=== PATIENT | male | born 1940 | race Caucasian/White ===

== ENCOUNTER 2019-04-11 10:29 | Inpatient (IN) | payer MEDICARE, SELFPAY ==
[2019-04-11] VITALS (9 sets, daily range): BP systolic 104–197; BP diastolic 58–94; PULSE 68–90; RESP 17–20; TEMP 36.6–36.9; O2SAT 93–98; BMI 41.8
--- NOTE | 2019-04-11 10:50 | XR_ITS ---
WS: [id number] Portable AP upright chest, 04/11/2019 Clinical Data: cough Comparison: Portable chest, 01/03/2018 Findings: No nodules, masses or effusions are seen. The heart is enlarged. The pulmonary vascularity is not increased. No pneumonia or pneumothorax is seen. The aortic arch and descending aorta show tor tuosity. The diaphragms are flattened XR/XR chest 1V portable [id number] Impression: Atherosclerosis, hyperinflation and cardiomegaly.
--- NOTE | 2019-04-11 10:52 | ED_ITS ---
Entered by Izzy Browne, acting as scribe for HPI - General Adult General: Chief complaint: General Medical Stated complaint: POSSIBLE PNEUMONIA Time Seen by Provider: 04/11/19 10:50 Source: EMS Mode of arrival: EMS Limitations: no limitations History of Present Illness: HPI narrative: 79 yo male presents with shortness of breath. pt was sent to the ED for possible pneumonia from the CT clinic. pt states this is worsened by laying flat. pt has had a cough and congestion. pt denies any other symptoms. MD complaint: shortness of breath Onset (ago): day(s) (2-3 days ago) Location: chest (congestion ) Radiation: non-radiation Severity: moderate Quality: constant Pain Consistency: constant Relieving factors: none Exacerbating factors: rest (laying flat) and other (cough) Associated symptoms: Reports cough, dyspnea and short of breath; Deny chest pain, headache(s), nausea, rash or vomiting Treatments prior to arrival: other (pt sent to ED from the CT clinic) Review of Systems General: Reports: 10 or more systems reviewed and unremarkable except in HPI and below Const: Denies: fever, chills, body aches or change in appetite Eyes: Denies: blurry vision or eye discomfort ENMT: Denies: throat pain or dental pain Card: Denies: chest pain Resp: Reports: shortness of breath, productive cough and wheezing GI: Denies: abdominal pain, nausea, vomiting or diarrhea : Denies: painful urination Musc: Denies: neck pain or back pain Skin/Breast: Denies: rash Neuro: Denies: headache Psych: Denies: depression Pipo/Lymph: Denies: easy bruising All/Imm: Denies: hives PFSH ED PFSH: Statuses (acute, chronic, etc) shown below reflect problem list status as previously entered and may not be historically accurate Social History Smoking and tobacco status: former smoker Physical Exam Const: COMMON NORMALS: no apparent distress, oriented x3 and healthy appearing HENMT: COMMON NORMALS: normocephalic and head/scalp atraumatic HEAD & SCALP: normocephalic and atraumatic Eye: COMMON NORMALS: PERRL and EOMs intact bilaterally PUPIL: Yes PERRL Neck/C-Spine: COMMON NORMALS: full ROM and supple Chest: COMMONS NORMALS: inspection of chest normal and palpation of chest normal Cardio: COMMON NORMALS: regular rate, regular rhythm and no murmurs RATE: regular rate RHYTHM: regular rhythm GI: COMMON NORMALS: normal to inspection, nondistended, normoactive bowel sounds, soft to palpation, non-tender and no masses PALPATION: Yes soft Extremity: COMMON NORMALS: normal to inspection and full ROM Neuro: COMMON NORMALS: oriented x3, moves all extremities and no focal motor deficits Psych: COMMON NORMALS: mental status grossly normal, thought process normal and cooperative THOUGHT PROCESS: normal thought process Skin: COMMON NORMALS: no rashes or lesions noted and no wounds GENERAL SKIN EXAM: no rashes or lesions noted Course Vital Signs: Vital signs: Vital Signs Temperature 98.5 F 04/11/19 10:31 Pulse Rate 87 04/11/19 15:27 Respiratory Rate 20 H 04/11/19 15:27 Blood Pressure 104/58 04/11/19 10:31 Pulse Oximetry 93 04/11/19 15:27 MDM - General Adult MDM Narrative: Medical decision making narrative: Patient presents here with dyspnea CT shows a possible pulmonary embolism but I believe is unlikely. Patient likely some chronic hypoxia. He is hypoxic here requiring 2 to 3 L. He has no signs of pneumonia. Since he is on oxygen will admit him for observation and spoke to Dr. Lopez. Lab Data: Labs: Lab Results 04/11/19 04/11/19 04/11/19 Range/Units 11:05 11:05 11:05 WBC 9.3 (4.0-10.0) 10^3/ uL RBC 4.26 (4.1-5.3) 10^6/u L Hgb 12.6 (11.7-16.6) g/dL Hct 38.0 L (42.0-52.0) % MCV 89.2 (80-94) fL MCH 29.6 (28.0-34.0) pg MCHC 33.2 (30.0-36.0) g/dL RDW 14.0 (12.1-15.1) % Plt Count 161 (130-400) 10^3/c mm MPV 11.0 H (7.4-10.4) fL Neut % (Auto) 77.2 % Lymph % (Auto) 10.9 % [place] % (Auto) 8.9 % Eos % (Auto) 2.5 % Baso % (Auto) 0.2 % Neut # (Auto) 7.2 (1.8-7.7) 10^3/u L Lymph # (Auto) 1.0 (0.8-4.8) 10^3/u L [place] # (Auto) 0.8 (0.2-0.9) 10^3/u L Eos # (Auto) 0.2 (0.0-0.8) 10^3/u L Baso # (Auto) 0.0 (0.0-0.1) 10^3/u L Nucleated RBC % (a uto) 0 % Nucleated RBCs # 0.0 /100WBC PT 35.80 H (10.5-13.3) SECO NDS INR 3.42 H (0.8-1.2) Sodium 137 (136-145) mmol/L Potassium 4.3 (3.5-5.1) mmol/L Chloride 97 L (98-107) mmol/L Carbon Dioxide 29 (22-29) mmol/L Anion Gap 15.3 (5-19) BUN 21 (8-23) mg/dL Creatinine 1.5 H (0.7-1.2) mg/dL Glucose 122 H (74-106) mg/dL Calcium 10.2 (8.5-10.5) mg/dL Total Bilirubin 0.6 (0.15-1.2) mg/dL AST 23 (0-40) U/L ALT 17 (0-41) U/L Alkaline Phosphata se 131 H (40-130) IU/L NT-Pro-B Natriuret Pep 1210 H (0-450) pg/mL Total Protein 7.9 (6.6-8.7) g/dL Albumin 4.4 (3.5-5.2) g/dL Globulin 3.5 (1.3-4.6) g/dL Lipase 28 (13-60) U/L Influenza Type A A g (Negative) POC Influenza B Ag (Negative) 04/11/19 Range/Units 12:19 WBC (4.0-10.0) 10^3/ uL RBC (4.1-5.3) 10^6/u L Hgb (11.7-16.6) g/dL Hct (42.0-52.0) % MCV (80-94) fL MCH (28.0-34.0) pg MCHC (30.0-36.0) g/dL RDW (12.1-15.1) % Plt Count (130-400) 10^3/c mm MPV (7.4-10.4) fL Neut % (Auto) % Lymph % (Auto) % [place] % (Auto) % Eos % (Auto) % Baso % (Auto) % Neut # (Auto) (1.8-7.7) 10^3/u L Lymph # (Auto) (0.8-4.8) 10^3/u L [place] # (Auto) (0.2-0.9) 10^3/u L Eos # (Auto) (0.0-0.8) 10^3/u L Baso # (Auto) (0.0-0.1) 10^3/u L Nucleated RBC % (a uto) % Nucleated RBCs # /100WBC PT (10.5-13.3) SECO NDS INR (0.8-1.2) Sodium (136-145) mmol/L Potassium (3.5-5.1) mmol/L Chloride (98-107) mmol/L Carbon Dioxide (22-29) mmol/L Anion Gap (5-19) BUN (8-23) mg/dL Creatinine (0.7-1.2) mg/dL Glucose (74-106) mg/dL Calcium (8.5-10.5) mg/dL Total Bilirubin (0.15-1.2) mg/dL AST (0-40) U/L ALT (0-41) U/L Alkaline Phosphata se (40-130) IU/L NT-Pro-B Natriuret Pep (0-450) pg/mL Total Protein (6.6-8.7) g/dL Albumin (3.5-5.2) g/dL Globulin (1.3-4.6) g/dL Lipase (13-60) U/L Influenza Type A A g Negative (Negative) POC Influenza B Ag Negative (Negative) EKG Data^: EKG 1: Attestation: I personally reviewed and interpreted this EKG as follows: EKG interpretation date: 04/11/19 EKG interpretation time: 15:23 Interpretation: afib hr [address] or t wave abnormalities qrs 90 qtc 411 Computer generated interpretation: Chest X-Ray 04/11/19 10:50 Impression: Atherosclerosis, hyperinflation and cardiomegaly. Chest CTA 04/11/19 13:11 Impression: 1. Small intraluminal filling defects of the lower lobe small peripheral arteries suggestive of pulmonary embolic disease. 2. Negative for acute cardiopulmonary disease. Discharge Plan Discharge Patient Disposition: Admitted As Inpatient Admit Provider: Staci Lopez Clinical Impression: Dyspnea Condition: Stable Coding Level of Care Code ED Senior Tax Accountant for Chg Fwd Exam Problem Focused The documentation recorded by the Pavan rose Bridget Annette, accurately reflects the service I personally performed and the decisions made by me, Dennis Noriega MD Apr 11, 2019 10:29
[2019-04-11 11:12] LABS: Basophils % 0.2 %; Eosinophils # 0.2 10^3/uL (0.0-0.8); Eosinophils % 2.5 %; Hemoglobin 12.6 g/dL (11.7-16.6); Lymphocytes % 10.9 %; Mean Corpuscular HGB Conc 33.2 g/dL (30.0-36.0); Mean Corpuscular Hemoglobin 29.6 pg (28.0-34.0); Mean Corpuscular Volume 89.2 fL (80-94); Monocytes # 0.8 10^3/uL (0.2-0.9); Monocytes % 8.9 %; Neutrophils # 7.2 10^3/uL (1.8-7.7); Neutrophils % 77.2 %; Nucleated Red Blood Cells % 0 %; Platelet Count 161 10^3/cmm (130-400); Red Blood Count 4.26 10^6/uL (4.1-5.3); White Blood Count 9.3 10^3/uL (4.0-10.0)
[2019-04-11 11:37] LABS: Alanine Aminotransferase 17 U/L (0-41); Albumin Level 4.4 g/dL (3.5-5.2); Alkaline Phosphatase 131 IU/L (40-130); Anion Gap 15.3 (5-19); Aspartate Amino Transferase 23 U/L (0-40); Blood Urea Nitrogen 21 mg/dL (8-23); Calcium 10.2 mg/dL (8.5-10.5); Carbon Dioxide 29 mmol/L (22-29); Chloride 97 mmol/L (98-107); Globulin 3.5 g/dL (1.3-4.6); Glucose 122 mg/dL (74-106); Lipase 28 U/L (13-60); NT Pro B Type Natriuretic Pept 1210 pg/mL (0-450); Potassium 4.3 mmol/L (3.5-5.1); Sodium 137 mmol/L (136-145); Total Bilirubin 0.6 mg/dL (0.15-1.2); Total Protein 7.9 g/dL (6.6-8.7)
[2019-04-11 13:07] LABS: Influenza A by IFA Negative (Negative); Influenza B by IFA Negative (Negative)
--- NOTE | 2019-04-11 13:11 | CT_ITS ---
WS: [id number] CTA scan of the chest with IV contrast. Additional two-dimensional coronal and sagittal reconstructio n and MIP images was performed. 04/11/2019 Clinical Data: dyspnea Comparison: Portable chest, 04/11/2019 DLP: 721.[address] scans at [facility] use at least one of these dose optimization techniques: automat ed exposure control; mA and/or kV adjustment per patient size (includes targeted exams where dose is matched to clinical indication); or iterative reconstruction. Findings: The central pulmonary arteries fill normally with no evidence of intraluminal filling defects. Howeve r there are several small peripheral left lower lobe arteries which do not fill and this is suggestiv e of pulmonary embolic disease. No nodules, masses or effusions are seen. The heart size is normal with no pericardial effusion. The thoracic aorta demonstrates no abnormalities or dilatations. There is no axillary or significant med iastinal adenopathy. The thyroid gland shows normal enhancement. The trachea bifurcates into the bron chi. The upper abdomen shows no abnormalities. The visualized liver, spleen, pancreas, gallbladder, adrena l glands and superior pole of the left kidney are not remarkable. The thoracic vertebral bodies show moderate osteoarthritis. CT/CT angio chest PE protcl [id number] Impression: 1. Small intraluminal filling defects of the lower lobe small peripheral arteri es suggestive of pulmonary embolic disease. 2. Negative for acute cardiopulmonary disease.
[2019-04-11] MEDS: iodixanol 320 mg/mL 100mL Btl 95 ML IV (13:40)
[2019-04-11 14:47] LABS: INR 3.42 (0.8-1.2)
--- NOTE | 2019-04-11 15:04 | ECG_ITS ---
Measurements Intervals [place] Rate: 64 P: MN: 0 QRS: 54 QRSD: 90 T: 84 QT: 401 QTc: [address] DEPRESSION [0.025+ mV ST DEPRESSION] ABNORMAL RHYTHM ECG Compared to ECG 01/03/2018 22:45:17 ST (T wave) deviation now present Electronically Signed On 04-11-2019 15:56:34 BRIDGE/STRUCTURE INSPECTION TEAM LEADER by Ernesto Mullins M.D. [id number]
[2019-04-11] MEDS: ipratropium-albuterol 3 mL Neb INHALATION ×3 (15:18→23:58)
--- NOTE | 2019-04-11 16:58 | P.HP_ITS ---
Providers/Chief Complaint Admitting Physician: Staci Lopez MD Primary Care Provider: Jairo Davalos Jr, MD Chief Complaint: Dyspnea History of Present Illness Keenan Knight is a 79 year old male with a past medical history of atrial fibrillation on anticoagulation with Coumadin, COPD for prior pulmonary function testing 2015, on albuterol as needed inhaler(could not afford Combivent), not on home O2, chronic venous insufficiency with a chronic venous ulcer over his right toe which is currently healed ,hyperlipidemia, hypertension, diet-controlled diabetes and remote history of prostate cancer presents to the hospital today with worsening shortness of breath as noticed by him over the past 1 week or so. He states he has had a cough for the past 5 to 7 days which has not improved in any way. He also defines some URI symptoms with a runny nose prior to onset of symptoms. He feels like his chest is congested however he is unable to expectorate. Since last night he felt his shortness of breath was getting much worse to the point where he could not lay down without having bouts of cough and feeling short of breath. On presentation into the ED he was noted to be hypoxic with O2 sats in the low 80s. With 2 to 3 L/min he has been maintaining oxygen saturation above 92% as of now. His last INR is at 3.4. Work-up in the ER has shown a normal WBC count of 9.3, hemoglobin of 12.6. INR is at 3.4. He states last week it was at 1.7. His creatinine is at 1.5. Per review of prior records it has ranged between 1.2-1.3 in the past. BNP is at 1210. From December 2017 this was noted to be at 1395. CTA of the chest was performed which showed small intraluminal filling defects of the lower lobe small peripheral arteries suggestive of pulmonary embolic disease. It was negative for any other acute cardiopulmonary disease. Chest x- ray was similarly negative for pneumonia or pneumothorax. Other relevant past tests have included a lower extremity venous Doppler which showed significant venous reflux of greater than 1000 ms were noted in the right common femoral, femoral and popliteal vein segments. Significant venous reflux of greater than 500 ms were noted in the right proximal, mid, distal and the below-knee greater saphenous vein segments. PFT 2016 : moderate obstructive changes with reduction diffusion consistent with moderate to severe chronic obstructive pulmonary disease. Echocardiogram: last 2012 WNL Review of Systems General: Reports: 10 or more systems reviewed and unremarkable except in HPI and below Const: Denies: fever, chills or body aches Eyes: Denies: change in vision, blurry vision or photophobia ENMT: Denies: throat pain, enlarged tonsils, painful swallowing, hoarseness or nasal congestion Card: Reports: shortness of breath on exertion and shortness of breath when lying down; Denies: chest pain, palpitations, irregular heart rhythm, edema, swelling of feet/ankles, lightheadedness or pre-syncope Resp: Reports: shortness of breath, non-productive cough and wheezing; Denies: productive cough, stridor, pain on inspiration, change in phlegm color, coughing up blood or chest congestion GI: Denies: abdominal pain, nausea, vomiting, vomiting blood, coffee grounds in vomit, difficulty swallowing, heartburn/indigestion, diarrhea, constipation, cramping, change in stool character, blood in stool or black tarry stool : Reports: urinary frequency and urinary hesitancy; Denies: flank pain, painful urination, urinary urgency or blood in urine Musc: Denies: neck pain, back pain, extremity pain, joint swelling, joint warmth or deformity Neuro: Denies: headache, numbness in extremities, weakness in extremities, changes in sensation, difficulty walking, frequent falls, dizziness, vertigo, behavioral changes, slurred speech or seizure-like activity Psych: Denies: anxiety, depression, suicidal ideation or homicidal ideation Endo: Denies: excessive urination, excessive thirst, tired all the time, cold intolerance or hot flashes Pipo/Lymph: Denies: easy bruising or easy bleeding Medications/Allergies Home Medications Medication Instructions Recorded Confirmed Last Taken Type allopurinol 300 mg PO DAILY 04/11/19 04/11/19 Unknown History atenolol 50 mg PO DAILY 04/11/19 04/11/19 Unknown History atorvastatin 80 mg PO DAILY 04/11/19 04/11/19 Unknown History furosemide 40 mg PO DAILY 04/11/19 04/11/19 Unknown History gemfibrozil 600 mg PO DAILY 04/11/19 04/11/19 Unknown History hydroxyzine HCl 12.5 mg PO DAILY 04/11/19 04/11/19 Unknown History lorazepam 0.5 mg PO DAILY PRN 04/11/19 04/11/19 Unknown History potassium chloride 10 meq PO DAILY 04/11/19 04/11/19 Unknown History venlafaxine 75 mg PO DAILY 04/11/19 04/11/19 Unknown History warfarin 5 mg PO DAILY 04/11/19 04/11/19 Unknown History Allergies Allergy/AdvReac Type Severity Reaction Status Date / Time No Known Allergies Allergy Verified 04/11/19 10:38 PFSH Acute PFSH: Statuses (acute, chronic, etc) shown below reflect problem list status as previously entered and may not be historically accurate Medical History (Updated 04/11/19 @ 19:40 by Staci Lopez MD) Atrial fibrillation (Acute) Back pain (Acute) Cataract (Acute) COPD (chronic obstructive pulmonary disease) (Acute) Gout (Acute) Hyperlipidemia (Acute) Hypertension (Acute) Prostate cancer (Acute) Pulmonary embolism (Acute) Sleep apnea (Acute) Urinary frequency (Acute) Surgical History (Updated 04/11/19 @ 17:02 by Staci Lopez MD) H/O hemorrhoidectomy (Acute) Hx of tonsillectomy (Acute) Family History (Updated 04/11/19 @ 17:02 by Staci Lopez MD) Other Cancer Social History (Updated 04/11/19 @ 17:03 by Staci Lopez MD) Smoking and tobacco status: former smoker Alcohol intake: former Substance/Drug Use: unknown Vitals/I&O/Wt Last Vital Signs Temp 98.5 F 04/11/19 10:31 Pulse 90 04/11/19 16:43 Resp 18 04/11/19 16:43 BP 151/84 04/11/19 16:43 Pulse Ox 93 04/11/19 16:43 Weight last 48 hrs Weight 124.738 kg Physical Exam Narrative: EXAM NARRATIVE: GEN: Awake, alert and oriented, no acute distress HEENT pupils are bilaterally normal size normally reacting, he is wearing nasal cannula at this present time. CVS: S1S2 N RS: CTA B/L. Scattered wheezing to auscultation of left-sided lung. Abd: Soft, nt/nd , bs+ NEWSPAPER PRESS OPERATOR APPRENTICE: no focal neuro deficits Data : 04/11/19 11:05 04/11/19 11:05 A&P Assessment and plan (1) COPD (chronic obstructive pulmonary disease): Status: Acute Code(s): J44.9 - Chronic obstructive pulmonary disease, unspecified (2) Venous reflux: Status: Acute Code(s): I87.2 - Venous insufficiency (chronic) (peripheral) (3) Atrial fibrillation: Status: Acute Code(s): I48.91 - Unspecified atrial fibrillation (4) Hyperlipidemia: Status: Acute Code(s): E78.5 - Hyperlipidemia, unspecified (5) Gout: Status: Acute Code(s): M10.9 - Gout, unspecified (6) Hypertension: Status: Acute Code(s): I10 - Essential (primary) hypertension (7) Dyspnea: Status: Acute Code(s): R06.00 - Dyspnea, unspecified (8) Hypoxia: Status: Acute Code(s): R09.02 - Hypoxemia (9) Pulmonary embolism: Status: Acute Code(s): I26.99 - Other pulmonary embolism without acute cor pulmonale Additional A&P Information Admit to inpatient MedSurg floor. For hypoxic respiratory insufficiency which I suspect is multifactorial. A CTA of the chest shows PE. He has been on anticoagulation with warfarin with last INR of 3.4. Since he is having a PE on a therapeutic dose of warfarin, I discussed with him the possibility of switching to an alternate form of anticoagulation such as a NOAC by way of eliquis. This will provide anticoagulation for the A. fib and also for the PE. Will check INR daily. When INR trends to less than 2, we will start therapy with Eliquis 10 mg twice daily loading followed by 5 mg twice a day. We will check lower extremity venous Doppler given history of chronic venous insufficiency and reflux. Possibility of recent viral URI followed by viral bronchitis cannot be excluded given that patient reported wheezing over the past week or so and some worsening of cough. It is also possible that acute on chronic COPD exacerbation may be contributing. We will use DuoNebs inhalation every 4 hours for the same. We will hold off on IV steroids and antibiotics for now unless patient shows worsening of respiratory status. He reports a history of sleep apnea however he was unable to use CPAP because of claustrophobia. He does not wish to use 1 right now either. I do not see a history of CHF reported in his chart. He reports taking daily Lasix for lower extremity swelling possibly as a result of the venous reflux. We will continue his home dose of 40 mg p.o. daily. Reports diet-controlled diabetes in the past. Will check HbA1c. He is not on any home medications for his diabetes. History of gout continue allopurinol. DVT prophylaxis currently Coumadin with INR of 3.4 CODE STATUS is full code. However patient states that he would not want to be on prolonged life sustaining measures if that is where it heads after resuscitation. His POA is his stepson who is currently at bedside. Attestations Medical Necessity Statement*: Anticipate greater than 2 midnights for multifactorial hypoxic respiratory insufficiency and modification of anticoagulation regimen Coding Level of Care Code Acute Surfboard Maker for g Fwd Diagnoses COPD (chronic obstructive pulmonary disease) J44.9 Venous reflux I87.2 Atrial fibrillation I48.91 Hyperlipidemia E78.5 Gout M10.9 Hypertension I10 Dyspnea R06.00 Hypoxia R09.02 Pulmonary embolism I26.99
--- NOTE | 2019-04-11 18:13 | ECG_ITS ---
Measurements Intervals [place] Rate: 76 P: TN: 0 QRS: 52 QRSD: 88 T: 84 QT: 376 QTc: 424 ATRIAL FIBRILLATION ABNORMAL RHYTHM ECG Compared to ECG 04/11/2019 15:23:48 ST (T wave) deviation no longer present Electronically Signed On 04-12-2019 16:26:25 FINANCE INTERN by Tamara Nieto M.D. [id number]
[2019-04-11 20:46] LABS: NT Pro B Type Natriuretic Pept 1194 pg/mL (0-450)
[2019-04-12] VITALS (17 sets, daily range): BP systolic 134–176; BP diastolic 67–90; PULSE 68–88; RESP 12–22; TEMP 36.1–36.9; O2SAT 91–98
[2019-04-12] MEDS: hyDRALAzine 20 mg/mL INJ 1 mL 10 MG IVP (03:00)
--- NOTE | 2019-04-12 03:27 | PC.NURSE ---
Patient is on 2L of oxygen per NC and has been since he arrived on the floor.
[2019-04-12] MEDS: ipratropium-albuterol 3 mL Neb INHALATION ×4 (03:45→23:19)
[2019-04-12 06:58] LABS: INR 3.13 (0.8-1.2)
[2019-04-12 07:03] LABS: Basophils % 0.4 %; Eosinophils # 0.2 10^3/uL (0.0-0.8); Eosinophils % 3.8 %; Hemoglobin 12.5 g/dL (11.7-16.6); Lymphocytes # 1.1 10^3/uL (0.8-4.8); Lymphocytes % 19.1 %; Mean Corpuscular HGB Conc 32.1 g/dL (30.0-36.0); Mean Corpuscular Hemoglobin 29.1 pg (28.0-34.0); Mean Corpuscular Volume 90.7 fL (80-94); Mean Platelet Volume 11.1 fL (7.4-10.4); Monocytes # 0.6 10^3/uL (0.2-0.9); Monocytes % 11.2 %; Neutrophils # 3.6 10^3/uL (1.8-7.7); Neutrophils % 65.1 %; Nucleated Red Blood Cells % 0 %; Platelet Count 154 10^3/cmm (130-400); Red Cell Distribution Width 14.1 % (12.1-15.1); White Blood Count 5.5 10^3/uL (4.0-10.0)
[2019-04-12 07:06] LABS: Alanine Aminotransferase 16 U/L (0-41); Albumin Level 4.3 g/dL (3.5-5.2); Alkaline Phosphatase 126 IU/L (40-130); Anion Gap 14.5 (5-19); Aspartate Amino Transferase 22 U/L (0-40); Blood Urea Nitrogen 17 mg/dL (8-23); Calcium 10.2 mg/dL (8.5-10.5); Carbon Dioxide 29 mmol/L (22-29); Chloride 98 mmol/L (98-107); Globulin 3.4 g/dL (1.3-4.6); Glucose 121 mg/dL (74-106); Potassium 4.5 mmol/L (3.5-5.1); Sodium 137 mmol/L (136-145); Total Bilirubin 0.6 mg/dL (0.15-1.2); Total Protein 7.7 g/dL (6.6-8.7)
[2019-04-12 07:22] LABS: Cholesterol 122 mg/dL (0-200); HDL Cholesterol 37 mg/dL (60-100); LDL Cholesterol Calculated 60 mg/dL (50-129); LDL HDL Ratio 1.62 RATIO (0.00-3.22); Triglycerides 124 mg/dL (0-150)
[2019-04-12 07:29] LABS: Estmated Average Glucose 123; Hemoglobin A1C 5.9 % (4.0-6.0)
[2019-04-12] MEDS: atorvastatin 40 mg Tablet 80 MG PO (08:11)
[2019-04-12] MEDS: venlafaxine 75 mg Tablet PO (08:11)
[2019-04-12] MEDS: atenolol 50 mg Tablet PO (08:11)
[2019-04-12] MEDS: FUROsemide 40 mg Tablet PO (08:11)
[2019-04-12] MEDS: allopurinol 300 mg Tablet PO (08:11)
--- NOTE | 2019-04-12 16:51 | P.PN_ITS ---
Subjective Subjective: Interval history: Breathing is improving today. He is currently on room air with oxygen saturation of 92%. Hemodynamically stable. Feels improved. He has remained afebrile. INR today is at 3.13. Creatinine improved from 1.5-1.3. Patient was noted to have nasal bleed from left nare this afternoon which resolved after placement of anterior nasal packing. Medications: Reviewed: Yes Vitals/I&O/Wt Last Vital Signs Temp 97.0 F L 04/12/19 15:58 Pulse 76 04/12/19 15:58 Resp 18 04/12/19 15:58 BP 134/86 04/12/19 15:58 Pulse Ox 92 04/12/19 15:58 04/12/19 04/12/19 04/12/19 06:59 14:59 22:59 Intake Total 480 / 480 Balance 480 / 480 Weight last 48 hrs Weight 124.738 kg Weight 124.738 kg Physical Exam Narrative: EXAM NARRATIVE: GEN: Awake, alert and oriented, no acute distress , appears much improved compared to yesterday. HEENT pupils are bilaterally normal size normally reacting CVS: S1S2 N RS: CTA B/L. Scattered wheezing to auscultation of left-sided lung. Abd: Soft, nt/nd , bs+ CAPPER MACHINE OPERATOR: no focal neuro deficits Data : 04/12/19 06:31 04/12/19 06:31 A&P Assessment and plan (1) COPD (chronic obstructive pulmonary disease): Status: Acute Code(s): J44.9 - Chronic obstructive pulmonary disease, unspecified (2) Venous reflux: Status: Acute Code(s): I87.2 - Venous insufficiency (chronic) (peripheral) (3) Atrial fibrillation: Status: Acute Code(s): I48.91 - Unspecified atrial fibrillation (4) Hyperlipidemia: Status: Acute Code(s): E78.5 - Hyperlipidemia, unspecified (5) Gout: Status: Acute Code(s): M10.9 - Gout, unspecified (6) Hypertension: Status: Acute Code(s): I10 - Essential (primary) hypertension (7) Dyspnea: Status: Acute Code(s): R06.00 - Dyspnea, unspecified (8) Hypoxia: Status: Acute Code(s): R09.02 - Hypoxemia (9) Pulmonary embolism: Status: Acute Code(s): I26.99 - Other pulmonary embolism without acute cor pulmonale Additional A&P Information - Hypoxic respiratory insufficiency which I suspect is multifactorial related to PE, bronchitis and COPD. A CTA of the chest shows PE. He has been on anticoagulation with warfarin with last INR of 3.13. Since he is having a PE on a therapeutic dose of warfarin, I discussed with him the possibility of switching to an alternate form of anticoagulation such as a NOAC by way of eliquis. This will provide anticoagulation for the A. fib and also for the PE. Will check INR daily. When INR trends to less than 2, we will start therapy with Eliquis 10 mg twice daily loading followed by 5 mg twice a day. LE doppler negative for DVT. Possibility of recent viral URI followed by viral bronchitis cannot be excluded given that patient reported wheezing over the past week or so and some worsening of cough. It is also possible that acute on chronic COPD exacerbation may be contributing. We will use DuoNebs inhalation every 4 hours for the same. We will hold off on IV steroids and antibiotics for now as patient has shown significant clinical improvement. He reports a history of sleep apnea however he was unable to use CPAP because of claustrophobia. He does not wish to use 1 right now either. I do not see a history of CHF reported in his chart. He reports taking daily La six for lower extremity swelling possibly as a result of the venous reflux. We will continue his home dose of 40 mg p.o. daily. Reports diet-controlled diabetes in the past. Hemoglobin A1c is 5.9.. He is not on any home medications for his diabetes. History of gout continue allopurinol. Nosebleed controlled today after applying anterior nasal packing which was subsequently removed after 2 hours. Patient states he has a history of multiple nosebleeds frequently. Will order saline spray DVT prophylaxis currently Coumadin with INR of 3.13 CODE STATUS is full code. However patient states that he would not want to be on prolonged life sustaining measures if that is where it heads after resuscitation. His POA is his stepson who is currently at bedside. Attestations Medical Necessity Statement*: Respiratory status improving, awaiting INR trending down to around told to start Eliquis, had nosebleed today which is now controlled. Coding Level of Care Code Acute Senior Sas Developer for Angelic Gagnon Diagnoses COPD (chronic obstructive pulmonary disease) J44.9 Venous reflux I87.2 Atrial fibrillation I48.91 Hyperlipidemia E78.5 Gout M10.9 Hypertension I10 Dyspnea R06.00 Hypoxia R09.02 Pulmonary embolism I26.99
--- NOTE | 2019-04-12 19:46 | USCV_ITS ---
Keenan Knight Age: 79 Gender: M : 1940 Exam Date: 04/12/2019 12:40 Ordering Phys: Staci Lopez MD Technologist: Hawa Celaya Exam Location: [facility] [place] Indication: Pulmonary embolus, ? DVT HISTORY: Pulmonary embolism. PROCEDURES: Comparison: 12-24-18. Venous duplex imaging was performed in bilateral lower extremities. The following venous structures were evaluated: common femoral vein, profunda vein, proximal portion of the greater saphenous vein, superficial femoral vein, and the popliteal vein. In addition, the posterior tibial and peroneal trunk were evaluated. Serial compression, augmentation maneuvers, and spectral Doppler flow evaluation were performed. FINDINGS: No evidence of DVT seen in any vessel visualized at this time. Mid calf veins not well seen. CONCLUSIONS No evidence of DVT in the above-mentioned identifiable veins. Dr Tamara Nieto MD [facility] (Electronically Signed) Final Date: 12 April 2019 13:26 S
[2019-04-12] MEDS: saline nasal spray 44mL Btl 1 SPRAY NASAL (21:05)
[2019-04-13] VITALS (9 sets, daily range): BP systolic 140–158; BP diastolic 66–90; PULSE 69–87; RESP 16–19; TEMP 36.6–37; O2SAT 91–98
--- NOTE | 2019-04-13 03:23 | PC.RESP ---
pt really confused and not able to take tx at this time. no respiratory distress noted at this time
[2019-04-13 06:42] LABS: Basophils % 0.2 %; Eosinophils # 0.2 10^3/uL (0.0-0.8); Eosinophils % 4.3 %; Hematocrit 39.2 % (42.0-52.0); Hemoglobin 12.7 g/dL (11.7-16.6); Lymphocytes # 1.2 10^3/uL (0.8-4.8); Lymphocytes % 23.3 %; Mean Corpuscular HGB Conc 32.4 g/dL (30.0-36.0); Mean Corpuscular Hemoglobin 29.8 pg (28.0-34.0); Mean Platelet Volume 11.4 fL (7.4-10.4); Monocytes # 0.7 10^3/uL (0.2-0.9); Monocytes % 14.4 %; Neutrophils # 2.9 10^3/uL (1.8-7.7); Neutrophils % 57.2 %; Nucleated Red Blood Cells % 0 %; Platelet Count 148 10^3/cmm (130-400); Red Blood Count 4.26 10^6/uL (4.1-5.3); Red Cell Distribution Width 14.2 % (12.1-15.1); White Blood Count 5.1 10^3/uL (4.0-10.0)
[2019-04-13 07:08] LABS: Alanine Aminotransferase 18 U/L (0-41); Albumin Level 4.1 g/dL (3.5-5.2); Alkaline Phosphatase 118 IU/L (40-130); Anion Gap 17.8 (5-19); Aspartate Amino Transferase 26 U/L (0-40); Blood Urea Nitrogen 21 mg/dL (8-23); Calcium 10.1 mg/dL (8.5-10.5); Carbon Dioxide 27 mmol/L (22-29); Chloride 96 mmol/L (98-107); Globulin 3.6 g/dL (1.3-4.6); Glucose 110 mg/dL (74-106); Potassium 3.8 mmol/L (3.5-5.1); Sodium 137 mmol/L (136-145); Total Bilirubin 0.7 mg/dL (0.15-1.2); Total Protein 7.7 g/dL (6.6-8.7)
[2019-04-13] MEDS: ipratropium-albuterol 3 mL Neb INHALATION (08:22)
[2019-04-13] MEDS: venlafaxine 75 mg Tablet PO (09:18)
[2019-04-13] MEDS: allopurinol 300 mg Tablet PO (09:18)
[2019-04-13] MEDS: atorvastatin 40 mg Tablet 80 MG PO (09:18)
[2019-04-13] MEDS: FUROsemide 40 mg Tablet PO (09:18)
[2019-04-13] MEDS: atenolol 50 mg Tablet PO (09:18)
[2019-04-13] MEDS: saline nasal spray 44mL Btl 1 SPRAY NASAL (09:30)
--- NOTE | 2019-04-13 12:10 | PM.DCS ---
Discharge Providers Date of Admission: 04/11/19 18:15 Date of Discharge: Date of Discharge: April 13, 2019 Attending Provider at Admission: Staci Lopez MD Attending Provider at Discharge: Yusef Carreno MD Primary Care Provider: Jairo Davalos Jr, MD Diagnoses at Discharge Discharge Diagnosis (1) COPD (chronic obstructive pulmonary disease): Status: Acute (2) Venous reflux: Status: Acute (3) Atrial fibrillation: Status: Acute (4) Hyperlipidemia: Status: Acute (5) Gout: Status: Acute (6) Hypertension: Status: Acute (7) Dyspnea: Status: Acute (8) Hypoxia: Status: Acute (9) Pulmonary embolism: Status: Acute (10) Generalized weakness: Status: Acute (11) Epistaxis not due to trauma: Status: Acute Reason for Visit Reason for Visit: Reason For Visit: Dyspnea Hospital Course Discharge Summary: Patient was referred from his outpatient physician clinic where he noted to be very weak. Patient has been having upper respiratory signs and symptoms but with no significant productive cough. He was further evaluated and found to have small pulmonary emboli which felt to be secondary to frequent episodes of subtherapeutic INR. This small PE felt unlikely to be the cause of patient's clinical presentation. He had previous history of prostate cancer and denies currently any difficulty with urination. Patient reports that last night he had coughed up phlegm which he had difficulty to do for several days and immediately felt better. This morning he denies any shortness of breath or chest pain. Reports that he ambulated to the bathroom without difficulty. Reports that he is generalized weakness is much improved and he feels strong enough to be dismissed home. We will perform home O2 evaluation as well as physical therapy evaluation and I will request urinalysis prior to discharge. Patient will follow up with primary care physician within next 4 to 7 days. He has been having frequent episodes of epistaxis for all my life . I will request outpatient ENT evaluation. His warfarin will be switched to Eliquis. I will avoid initial loading with 10 mg twice daily and will allow gradual blood level increase. So far no evidence of infectious process noted. I will not initiate antibiotic at this point unless UA shows evidence of UTI. We will request home health should patient need physical therapy. Physical Exam Const: COMMON NORMALS: oriented x3 and alert Resp: OTHER: Minimal bibasilar Rales which improved with deep inspiration. Cardio: COMMON NORMALS: regular rate, regular rhythm and S2 normal heart sound RATE: regular rate RHYTHM: regular rhythm HEART SOUNDS: S2 normal OTHER: No lower extremity edema bilaterally. Right first toe chronic ulcer noted for which patient is followed by wound care clinic. Currently does not show evidence of infection. GI: COMMON NORMALS: normal to inspection, nondistended, normoactive bowel sounds, soft to palpation and non-tender PALPATION: Yes soft Neuro: COMMON NORMALS: oriented x3 and no focal motor deficits SENSORIUM/ORIENTATION: Yes alert Discharge Data Data Completed and Pending: Completed Studies During Hospitalization Category Date Time Status CT angio chest PE protcl [id number] Urge nt Cat Scan 04/11/19 13:11 Completed XR chest 1V gee ble [id number] Urgent Exams 04/11/19 10:50 [place] [id number] Routin e Ultrasound 04/12/19 19:46 Completed Pending at discharge Category Date Time Status Urinalysis and Mi croscopic Routine Lab 04/13/19 11:53 Uncollected Labs from last 24 hours 04/13/19 04/13/19 04/13/19 06:00 06:00 06:00 WBC 5.1 RBC 4.26 Hgb 12.7 Hct 39.2 L MCV 92.0 MCH 29.8 MCHC 32.4 RDW 14.2 Plt Count 148 MPV 11.4 H Neut % (Auto) 57.2 Lymph % (Auto) 23.3 [place] % (Auto) 14.4 Eos % (Auto) 4.3 Baso % (Auto) 0.2 Neut # (Auto) 2.9 Lymph # (Auto) 1.2 [place] # (Auto) 0.7 Eos # (Auto) 0.2 Baso # (Auto) 0.0 Nucleated RBC % (a uto) 0 Nucleated RBCs # 0.0 PT 26.10 H INR 2.30 H Sodium 137 Potassium 3.8 Chloride 96 L Carbon Dioxide 27 Anion Gap 17.8 BUN 21 Creatinine 1.3 H Glucose 110 H Calcium 10.1 Total Bilirubin 0.7 AST 26 ALT 18 Alkaline Phosphata se 118 Total Protein 7.7 Albumin 4.1 Globulin 3.6 Vitals: Last Vital Signs Temp 98.1 F 04/13/19 11:27 Pulse 81 04/13/19 11:27 Resp 18 04/13/19 11:27 BP 158/90 02/02/20 11:27 Pulse Ox 96 04/13/19 11:27 Discharge Plan Discharge Patient Disposition: Home Health Service Condition: Stable Prescriptions: New Eliquis 5 mg tablet 5 mg PO BID Qty: 60 RF: 0 ipratropium-albuterol 0.5 mg-3 mg(2.5 mg base)/3 mL Solution For Nebulization 3 ml inhalation Q4H.RESPIRATORY PRN (Reason: Wheezing) Qty: 120 RF: 0 Continued furosemide 40 mg tablet 40 mg PO DAILY RF: 0 atorvastatin 80 mg tablet 80 mg PO DAILY RF: 0 venlafaxine 75 mg tablet 75 mg PO DAILY RF: 0 lorazepam 0.5 mg tablet 0.5 mg PO DAILY PRN (Reason: Anxiety) RF: 0 gemfibrozil 600 mg tablet 600 mg PO DAILY RF: 0 hydroxyzine HCl 25 mg tablet 12.5 mg PO DAILY RF: 0 allopurinol 300 mg tablet 300 mg PO DAILY RF: 0 atenolol 50 mg tablet 50 mg PO DAILY RF: 0 potassium chloride 10 mEq tablet,ER particles/crystals 10 meq PO DAILY RF: 0 Discontinued warfarin 5 mg tablet 5 mg PO DAILY RF: 0 Referrals: Andrew Valles MD [Physician] - 1 week (Early as possible for further evaluation of epistaxis) Yusef Carreno MD [Hospitalist] - Jairo Davalos Jr, MD [Primary Care Provider] - 4-7 days Discharge Diet: Advance as tolerated Discharge Activity: Increase activity as tolerated Activity Restrictions/Additional Instructions: Please call your doctor or present to emergency department if your condition worsens or you develop diarrhea, lightheadedness, fatigue or see blood in your stool or black stool. Discharge Attestations Time Spent in Discharge Care*: greater than 30 min Quality Metrics Clinical Quality Measures During this hospital stay, did patient experience: VTE Contraindication to Overlap Therapy: Complication of medical care VTE Discharge Education: Education about anticoagulant therapy/Care Notes given Coding Level of Care Code Acute Model Technician for Rebeccag Fwd Diagnoses COPD (chronic obstructive pulmonary disease) J44.9 Venous reflux I87.2 Atrial fibrillation I48.91 Hyperlipidemia E78.5 Gout M10.9 Hypertension I10 Dyspnea R06.00 Hypoxia R09.02 Pulmonary embolism I26.99 Generalized weakness R53.1 Epistaxis not due to trauma R04.0
[2019-04-13 13:32] LABS: Bilirubin Urine Neg (NEGATIVE); Blood Urine Neg (Negative); Glucose Urine UA Norm (Normal); Ketones Urine Negative (Negative); Leukocyte Esterase Urine 1+ (Negative); Nitrate Urine Negative (Negative); Protein Urine Neg (Negative); Specific Gravity, Urine 1.005 (1.005-1.030); Urine Appearance SL Hazy (CLEAR); Urine Color Yellow (Yellow); Urobilinogen Urine Norm (Negative); pH Urine 7 (5-7)
[2019-04-13 14:18] LABS: Bacteria Urine TRACE; WBC Urine 15-25 /hpf (0-5)
[2019-04-13 14:20] LABS: Add Urine Culture? Yes
== END 2019-04-13 16:30 | disposition home or self-care (01) | DRG 190 ==
LOC: ER 11:14 → MEDSURG 16:18
PROVIDERS: Admitting Provider Student in an Organized Health Care Education/Training Program; Emergency Provider Emergency Medicine; Family Provider Family Medicine; PCP Family Medicine; Visit Provider Internal Medicine
DX: J44.9 Chronic obstructive pulmonary disease, unspecified (principal); I26.99 Other pulmonary embolism without acute cor pulmonale; I87.2 Venous insufficiency (chronic) (peripheral); I48.91 Unspecified atrial fibrillation; M10.9 Gout, unspecified; I10 Essential (primary) hypertension; R09.02 Hypoxemia; E78.5 Hyperlipidemia, unspecified; R04.0 Epistaxis; R53.1 Weakness; Z85.46 Personal history of malignant neoplasm of prostate; R79.1 Abnormal coagulation profile
CPT/HCPCS: 12345; 36415; 71045; 71275; 80053; 80061; 81001; 83036; 83690; 83880; 85025; 85610; 87086; 87804; 93005; 93970; 94640; 97161; 99282; G0378; J0360; Q9967

== ENCOUNTER 2019-04-19 12:10 | Emergency (ER) | payer MEDICARE, SELFPAY ==
[2019-04-19 12:12] VITALS: BP 129/77; PULSE 88; RESP 16; TEMP 36.6; O2SAT 96; BMI 32.0
[2019-04-19 13:17] LABS: Basophils % 0.5 %; Eosinophils # 0.2 10^3/uL (0.0-0.8); Eosinophils % 3.4 %; Hematocrit 39.6 % (42.0-52.0); Hemoglobin 12.8 g/dL (11.7-16.6); Lymphocytes # 1.9 10^3/uL (0.8-4.8); Lymphocytes % 30.8 %; Mean Corpuscular HGB Conc 32.3 g/dL (30.0-36.0); Mean Corpuscular Volume 89.8 fL (80-94); Mean Platelet Volume 10.8 fL (7.4-10.4); Monocytes # 0.6 10^3/uL (0.2-0.9); Monocytes % 9.2 %; Neutrophils # 3.4 10^3/uL (1.8-7.7); Nucleated Red Blood Cells % 0 %; Platelet Count 236 10^3/cmm (130-400); Red Blood Count 4.41 10^6/uL (4.1-5.3); Red Cell Distribution Width 13.7 % (12.1-15.1); White Blood Count 6.1 10^3/uL (4.0-10.0)
[2019-04-19 13:26] LABS: INR 1.64 (0.8-1.2)
[2019-04-19 13:27] LABS: Partial Thromboplastin Time 46.6 SECONDS (23.9-36.7)
[2019-04-19 13:32] LABS: Alanine Aminotransferase 21 U/L (0-41); Albumin Level 4.4 g/dL (3.5-5.2); Alkaline Phosphatase 142 IU/L (40-130); Aspartate Amino Transferase 21 U/L (0-40); Blood Urea Nitrogen 18 mg/dL (8-23); Calcium 10.3 mg/dL (8.5-10.5); Carbon Dioxide 27 mmol/L (22-29); Chloride 100 mmol/L (98-107); Globulin 3.7 g/dL (1.3-4.6); Glucose 100 mg/dL (65-115); Sodium 139 mmol/L (136-145); Total Bilirubin 0.5 mg/dL (0.15-1.2); Total Protein 8.1 g/dL (6.6-8.7)
--- NOTE | 2019-04-19 13:41 | ED_ITS ---
Entered by Joleen Eugene, acting as scribe for Eneida Ewing Jo Apr 19, 2019 12:10 HPI - Epistaxis General: Chief complaint: Epistaxis Stated complaint: nosebleed Time Seen by Provider: 04/19/19 13:41 Source: patient and family Mode of arrival: wheelchair Limitations: no limitations History of Present Illness: HPI Narrative: 79 yo Male presents to ED with complaint of epistaxis. Pt is on Eliquis. Pt states that the bleeding was coming from the left side of his nose. Pt states that he feels like something is stuck in the back of his throat and it won't go up or down. complaint: epistaxis Location: left nostril Onset (ago): hour(s) Duration: constant Context: other anticoagulant use Associated symptoms: Reports no associated symptoms; Deny fever(s), headache(s), syncope or vomiting Review of Systems General: Reports: other (negative unless marked) Const: Denies: fever, chills, body aches, fatigue, malaise or diaphoresis Eyes: Denies: change in vision or blurry vision ENMT: Denies: throat pain, painful swallowing, hoarseness, ear pain, ear discharge, Change in hearing or nasal discharge Card: Denies: chest pain, palpitations, irregular heart rhythm, syncope, pre- syncope, shortness of breath on exertion or shortness of breath when lying down Resp: Denies: shortness of breath, productive cough, non-productive cough, wheezing, coughing up blood or chest congestion GI: Denies: abdominal pain, nausea, vomiting, vomiting blood, coffee grounds in vomit, diarrhea, constipation, cramping, blood in stool or black tarry stool : Denies: flank pain, difficulty urinating, painful urination, urinary frequency, urinary urgency, decreased urine ouput, urinary incontinence or blood in urine Musc: Denies: neck pain, back pain, extremity pain, extremity swelling, joint pain, joint swelling, joint warmth or joint stiffness Skin/Breast: Denies: rash, skin tenderness or yellow skin Neuro: Denies: headache, numbness in extremities, weakness in extremities, changes in sensation, lack of coordination, difficulty walking, dizziness, vertigo or confusion Endo: Denies: excessive thirst, tired all the time, cold intolerance, excessive sweating, flushing or hot flashes Pipo/Lymph: Denies: easy bruising, easy bleeding, petechiae or enlarged lymph nodes All/Imm: Denies: hives, throat swelling, tongue swelling, facial swelling or acute wheezing PFSH ED PFSH: Statuses (acute, chronic, etc) shown below reflect problem list status as previously entered and may not be historically accurate Medical History Atrial fibrillation (Acute) Back pain (Acute) Cataract (Acute) COPD (chronic obstructive pulmonary disease) (Resolved) Epistaxis not due to trauma (Acute) Gout (Acute) Hyperlipidemia (Acute) Hypertension (Acute) Prostate cancer (Acute) Pulmonary embolism (Acute) Sleep apnea (Acute) Urinary frequency (Acute) Surgical History H/O hemorrhoidectomy (Acute) Hx of tonsillectomy (Acute) Family History Other Cancer Social History Smoking and tobacco status: former smoker Alcohol intake: former Physical Exam Const: COMMON NORMALS: no apparent distress, oriented x3, no limitations, healthy appearing and well nourished EXAM LIMITATIONS: no altered mental status GENERAL APPEARANCE: cooperative, well kempt and well developed ORIENTATION/CONSCIOUSNESS: Yes awake HENMT: COMMON NORMALS: normocephalic, head/scalp atraumatic, hearing grossly normal bilaterally, external ears normal, EAC's normal, external nose normal and moist oral mucous membranes HEAD & SCALP: normal to inspection, normocephalic and atraumatic FACE & SINUS: normal facial exam and face symmetric NOSE: external nose normal and epistaxis on the left anterior source, dried blood present and active bleeding EXTERNAL EAR: Yes external ears normal EXTERNAL AUDITORY CANAL: EAC's normal MOUTH: oral and palatal mucosa normal and tongue normal Eye: COMMON NORMALS: PERRL, EOMs intact bilaterally, conjunctivae normal and no scleral icterus GENERAL EYE: normal appearance of both eyes and normal light reflex CONJUNCTIVA: Yes conjunctivae normal SCLERA: sclerae normal CORNEA: Yes corneas normal PUPIL: Yes PERRL DIRECT OPHTHALMOSCOPY: Yes normal light reflex Neck/C-Spine: COMMON NORMALS: full ROM, no lymphadenopathy, supple, no meningeal signs and no JVD GENERAL: Yes normal visual inspection and Yes trac hea midline CERVICAL SPINE: Yes cervical ROM normal Chest: COMMONS NORMALS: inspection of chest normal and palpation of chest normal Resp: COMMON NORMALS: normal respiratory effort, no retractions, no use of accessory muscles and clear to auscultation bilaterally EFFORT & INSPECTION: Yes able to speak in complete sentences AUSCULTATION: clear to auscultation bilaterally Cardio: COMMON NORMALS: no JVD, regular rate, regular rhythm, S1 normal heart sound, S2 normal heart sound, no gallops, no clicks, no murmurs and no rub JUGULAR VENOUS DISTENTION: no JVD RATE: regular rate RHYTHM: regular rhythm HEART SOUNDS: S1 normal and S2 normal GI: COMMON NORMALS: soft to palpation, non-tender, no hepatosplenomegaly and no masses INSPECTION: Yes normal to inspection PALPATION: Yes soft and Yes no hepatosplenomegaly : COMMON NORMALS: Yes no CVA tenderness BLADDER/KIDNEY EXAM: Yes no CVA tenderness Back/Pelvis: COMMON NORMALS: no CVA tenderness, thoracic and lumbar spine normal to inspection, no thoracic nor lumbar tenderness and thoraco-lumbar ROM normal Extremity: COMMON NORMALS: normal to inspection, full ROM, normal capillary refill, no joint enlargement, no clubbing, cyanosis or edema and no calf tenderness Neuro: COMMON NORMALS: oriented x3, CN's II-XII intact bilaterally, moves all extremities, no focal motor deficits and no sensory deficits noted MENINGEAL SIGNS: Yes no meningeal signs Psych: COMMON NORMALS: mental status grossly normal, thought process normal, cooperative, affect normal, speech normal and activity/motor behavior normal APPEARANCE: Yes well kempt SPEECH: Yes normal speech THOUGHT PROCESS: normal thought process Skin: COMMON NORMALS: no rashes or lesions noted, skin turgor normal, no jaundice, no petechiae and no mottling GENERAL SKIN EXAM: no rashes or lesions noted and turgor normal Procedures Epistaxis Control Time Out Performed: Yes Nostril: left Nose Prepped With: oxymetazoline Direct Inspection: unable to visualize Clots Removed by: blowing nose Cautery Used: none Device Inserted: hemostatic balloon Device Size: 5 Patient Tolerated Procedure: well and no complications Course Vital Signs: Vital signs: Vital Signs Temperature 97.9 F 04/19/19 12:12 Pulse Rate 67 04/19/19 15:31 Respiratory Rate 18 04/19/19 15:31 Blood Pressure 123/75 04/19/19 15:31 Pulse Oximetry 93 04/19/19 15:31 MDM - Epistaxis MDM Narrative: Medical decision making narrative: Keenan is a nice 79-year-old male who comes in with epistaxis while on Eliquis. He was previously seen at Dr. Cage's office and had cautery done to his left nostril. After clearing his nose with suction and blowing he had mild oozing in his definitive spot cannot be seen. A 5.5 cm Rhino Rocket was placed. Patient tolerated this well there is been no further bleeding. There is no bleeding from the nose or down his throat. I reviewed the case with Dr. Cage who agrees to see the patient's office on Sunday or at least by phone arrange for a time to have the Rhino Rocket removed. It is unclear if the patient is currently taking Bactrim so I informed him to start amoxicillin until cleared by Dr. Cage. Lab Data: Attestation: I reviewed the patient's lab results. Labs: Lab Results 04/19/19 04/19/19 04/19/19 Range/Units 13:00 13:00 13:00 WBC 6.1 (4.0-10.0) 10^3/ uL RBC 4.41 (4.1-5.3) 10^6/u L Hgb 12.8 (11.7-16.6) g/dL Hct 39.6 L (42.0-52.0) % MCV 89.8 (80-94) fL MCH 29.0 (28.0-34.0) pg MCHC 32.3 (30.0-36.0) g/dL RDW 13.7 (12.1-15.1) % Plt Count 236 (130-400) 10^3/c mm MPV 10.8 H (7.4-10.4) fL Neut % (Auto) 55.0 % Lymph % (Auto) 30.8 % [place] % (Auto) 9.2 % Eos % (Auto) 3.4 % Baso % (Auto) 0.5 % Neut # (Auto) 3.4 (1.8-7.7) 10^3/u L Lymph # (Auto) 1.9 (0.8-4.8) 10^3/u L [place] # (Auto) 0.6 (0.2-0.9) 10^3/u L Eos # (Auto) 0.2 (0.0-0.8) 10^3/u L Baso # (Auto) 0.0 (0.0-0.1) 10^3/u L Nucleated RBC % (a uto) 0 % Nucleated RBCs # 0.0 /100WBC PT 20.00 H (10.5-13.3) SECO NDS INR 1.64 H (0.8-1.2) APTT 46.6 H (23.9-36.7) SECO NDS Sodium 139 (136-145) mmol/L Potassium 4.0 (3.5-5.1) mmol/L Chloride 100 (98-107) mmol/L Carbon Dioxide 27 (22-29) mmol/L Anion Gap 16.0 (5-19) BUN 18 (8-23) mg/dL Creatinine 1.3 H (0.7-1.2) mg/dL Glucose 100 (65-115) mg/dL Calcium 10.3 (8.5-10.5) mg/dL Total Bilirubin 0.5 (0.15-1.2) mg/dL AST 21 (0-40) U/L ALT 21 (0-41) U/L Alkaline Phosphata se 142 H (40-130) IU/L Total Protein 8.1 (6.6-8.7) g/dL Albumin 4.4 (3.5-5.2) g/dL Globulin 3.7 (1.3-4.6) g/dL Discharge Plan Discharge Patient Disposition: Home, Self-Care Clinical Impression: Epistaxis Condition: Stable Prescriptions: New amoxicillin 500 mg capsule 500 mg PO TID 10 Days Qty: 30 RF: 0 No Action furosemide 40 mg tablet 40 mg PO DAILY RF: 0 atorvastatin 80 mg tablet 80 mg PO DAILY RF: 0 venlafaxine 75 mg tablet 75 mg PO DAILY RF: 0 lorazepam 0.5 mg tablet 0.5 mg PO DAILY PRN (Reason: Anxiety) RF: 0 gemfibrozil 600 mg tablet 600 mg PO DAILY RF: 0 hydroxyzine HCl 25 mg tablet 12.5 mg PO DAILY RF: 0 allopurinol 300 mg tablet 300 mg PO DAILY RF: 0 atenolol 50 mg tablet 50 mg PO DAILY RF: 0 potassium chloride 10 mEq tablet,ER particles/crystals 10 meq PO DAILY RF: 0 ipratropium-albuterol 0.5 mg-3 mg(2.5 mg base)/3 mL Solution For Nebulization 3 ml inhalation Q4H.RESPIRATORY PRN (Reason: Wheezing) Qty: 120 RF: 0 Eliquis 5 mg tablet 5 mg PO BID Qty: 60 RF: 0 Discharge Orders: Discharge Order (Routine); Ordered 04/19/19 Ordered By: Eneida Ewing Referrals: Andrew Valles MD [Physician] - 1-3 days aJiro Davalos Jr, MD [Primary Care Provider] - Discharge Diet: Usual diet Discharge Activity: Increase activity as tolerated Patient Instructions: Epistaxis (ED) Activity Restrictions/Additional Instructions: Please return to the ER immediately for any of the signs or symptoms listed on your discharge instruction sheets, worsening/changing of your symptoms, you are not getting better as quickly as expected, or for ANY other cause or concerns. Return to the ER if your nose begins to bleed or you have any other concerns. Take amoxicillin if you are no longer taking the Bactrim previously prescribed you. Discharge Date/Time: 04/19/19 15:32 Coding Level of Care Code ED Anthropologist Physical for Chg Fwd Exam Problem Focused The documentation recorded by the Jabier rose Carmen, accurately reflects the service I personally performed and the decisions made by Kaylin ladd Eli N Apr 19, 2019 12:10
[2019-04-19] MEDS: oxymetazoline 0.05% Nasal Spray 15 mL 2 SPRAY NOSTRIL-B (13:53)
[2019-04-19 15:31] VITALS: BP 123/75; PULSE 67; RESP 18; O2SAT 93
--- NOTE | 2019-04-22 14:06 | DCPLANNER ---
outpatient pharmacy manager had message to schedule a follow up appointment for patient with Dr. Valles, ENT, casey saw operator called patient to confirm that patient wanted casey saw operator to schedule that follow up appointment. outpatient pharmacy manager unable to speak with patient at this time, a message stated that patient is unavailable at this time, and unable to leave a voicemail.
== END 2019-04-19 15:32 | disposition home or self-care (01) ==
PROVIDERS: Nurse Practitioner Family; Emergency Provider Emergency Medicine; Family Provider Family Medicine; PCP Family Medicine
DX: R04.0 Epistaxis (principal); I48.91 Unspecified atrial fibrillation; J44.9 Chronic obstructive pulmonary disease, unspecified; E78.5 Hyperlipidemia, unspecified; I10 Essential (primary) hypertension; Z87.891 Personal history of nicotine dependence; Z79.01 Long term (current) use of anticoagulants
CPT/HCPCS: 30901; 36415; 80053; 85025; 85610; 85730; 99281; 99282

== ENCOUNTER 2019-05-06 07:33 | Day surgery (SDC) | payer MEDICARE, SELFPAY ==
[2019-05-06] VITALS (8 sets, daily range): BP systolic 108–140; BP diastolic 69–85; PULSE 70–86; RESP 16–23; TEMP 36.1–36.7; O2SAT 91–100; BMI 26.8
--- NOTE | 2019-05-06 08:42 | P.ANESASSM_ITS ---
Pre-Anesthetic Assessment Pre-Anesthetic Assessment: Height/Weight: Height 1.98 m Weight 105.233 kg Temp Pulse Resp BP Pulse Ox 98 F 73 18 108/73 92 05/06/19 08:14 05/06/19 08:14 05/06/19 08:14 05/06/19 08:14 05/06/19 08:14 Preop Diagnosis: nose bleeds Proposed Procedure: Operation Date: 05/06/19 08:45 Proposed Procedures p Endoscopic Sphenopalatine Artery Ligation(Not Applicable) - Andrew Valles MD Familial anesthetic complications: None Was Beta Mariana taken within 24 h ours: Yes Last intake: Intake (took furosemide, gemfibrozil, potassiujm eliquis, atenolol) Last Liquid Date 05/05/19 Last Liquid Time 21:00 Last Solid Date 05/05/19 Last Solid Time 21:00 Social: Social History: Tobacco Packs per day: former smoker - quit 1989 Comment: Used to drink alot - quit in 1989 Exam: Pre-Anes Outpt Exam: alert, oriented x 3, clear to auscultation bilaterally and regular rate & rhythm Airway: Cervical ROM: WNL (limited extension - due to pain from tractor accident years ago (caused detached RETINA)) MP: 4 Dentition: False Additional comments: avoid n2o - Pulmonary: Pulmonary: COPD and Sleep apnea (? patient had sleep study, they have him oxygen concentrator via [place]. ) Comments: PE on Eliquis occurred 4 weeks ago - has not stopped for this procedure CV/HEM: CV/HEM: Afib, Angina (Stable), CAD, DVT, HTN and ME : : None reported Hepatic: Hepatic: None reported GI: GI: GERD Metabolic: Metabolic: DM and Morbid obesity Musc/skel: Musc/skel: None reported Neuropsych: Neuropsych: TIA (possibly as recently as 2-3 weeks ago when he visted Dr. Valles's office) Anesthetic Plan: ASA status: 4 Risk of > 500 ml blood loss (7ml/kg in children): No PFSH Anesthesia PFSH: Social History Smoking and tobacco status: former smoker Alcohol intake: former Data Anesthesia Cardiac Studies: No Data to Display
[2019-05-06] MEDS: sodium chloride 0.9% 1,000 ML 30 ML IV (08:43)
[2019-05-06] MEDS: fluorescein 1 mg Strip XX ×2 (10:15→10:46)
[2019-05-06] MEDS: lidocaine 4% PF 5 mL INJ INJECTION (10:16)
[2019-05-06] MEDS: EPINEPHrine 1 mg/mL INJ XX ×2 (10:17→10:43)
[2019-05-06] MEDS: oxymetazoline 0.05% Nasal Spray 15 mL 2 SPRAY NOSTRIL-L (10:18)
[2019-05-06] MEDS: oxymetazoline 0.05% Nasal Spray 15 mL 4 SPRAY NOSTRIL-L (10:34)
--- NOTE | 2019-05-06 11:09 | SUR.PHASEI ---
1108 PATIENT TO PACU AT THIS TIME. RR EVEN AND UNLABORED. PLACED ON SIMPLE MASK AT 8L, SPO2 98%. DRESSING NOTED TO LOWER NOSE. PATIENT NOT RESPONDING TO VERBAL STIMULI AT THIS TIME.
--- NOTE | 2019-05-06 11:11 | PM.OP ---
Operative Report Date of procedure: May 06, 2019 Pre-op Diagnosis: Recurrent Epistaxis, Left Post-op diagnosis: same Post-op Findings: Extensive crusting and coagulated blood clots, left nasal cavity Left Sphenopalatine artery identified and clipped Complex left nasal septal deviation Procedure Done: Endoscopic ligation of left sphenopalatine artery Endoscopic cautery, left nasal cavity for control of epistaxis Implants: None Specimens removed/disposition: None Pathology: none sent Surgeon: Andrew Valles [employer] Computer [employer] Professor: Owen Correia Anesthesia: General Estimated blood loss (mL): 50 IV fluids (mL): 1,000 Complications: None Findings: Left sphenopalatine artery identified and clipped Complex left nasal septal deviation Extensive crusting and clotted blood in the left nasal cavity Multiple areas of point bleeding, left nasal cavity Condition: stable Disposition: PACU Brief History: 79 yo wm with a h/o recurent epistaxis, left nasal cavity after being placed on Eliquis for a recent pulmonary embolus. Procedure: The patient was identified in the preoperative holding area and was taken to the operating room where he was placed on the operating table in the supine position. Anesthesia was obtained with general endotracheal anesthesia. A transoral sphenopalatine artery block was performed on the left side, and the left nasal cavity was injected with local anesthesia. Cotton pledgets soaked in an Afrin/lidocaine mix were placed in the left nasal cavity. The patient was then prepped and draped in the usual sterile fashion. 10 minutes were allowed to pass and the pledgets were then removed. A systematic inspection was carried out of the patient's left nasal cavity with a 0 degrees Loco chanel surgical telescope with the attached video camera system with the findings noted above. The posterior root of the left middle turbinate was injected with local anesthesia and a pledget soaked in 1:1000 epinephrine was placed in the area for 10 minutes. At this point a vertical mucosal incision was made just above the inferior turbinate in the in the left nasal cavity just anterior to the posterior root of the middle turbinate. Using a Gorny suction, a submucosal dissection proceeded posteriorly in a submucosal plane to the root of the inferior turbinate until the left sphenopalatine artery was identified. The left sphenopalatine artery was dissected free from the surrounding tissues and 2 clips were placed on the sphenopalatine artery. At this point the area of the left sphenopalatine artery was coagulated with the laryngeal Coblation wand. At this point the mucosal flap that had been previously raised was returned to the normal anatomic position and the flap was secured in place with Surgicel and thrombin-soaked Gelfoam. At this point using the Coblation wand, the mucosa of the face of the sphenoid and the posterior septum on the left were coagulated. Multiple areas of point bleeding in the left nasal cavity and posterior nasal septum and inferior turbinate were then coagulated with the Coblation wand. Gelfoam soaked in thrombin was then placed over these areas of bleeding and the nose was then sprayed with Afrin. At this point the procedure was terminated and control of the patient was returned to anesthesia where he underwent an uneventful reversal of anesthesia and extubation and was taken to the recovery room in stable condition. There were no operative or anesthetic complications.
--- NOTE | 2019-05-06 11:31 | SUR.PHASEI ---
[id number] PATIENT TO OPS AT THIS TIME. NO DISTRESS. DRESSING TO NOSE, CDI.
== END 2019-05-06 12:20 | disposition home or self-care (01) ==
PROVIDERS: Family Provider Family Medicine; PCP Family Medicine; Visit Provider Specialist
PROC: (CPT 30920; principal; 2019-05-06 08:45)
DX: R04.0 Epistaxis (principal); Z87.891 Personal history of nicotine dependence; J44.9 Chronic obstructive pulmonary disease, unspecified; G47.30 Sleep apnea, unspecified; Z86.711 Personal history of pulmonary embolism; Z79.01 Long term (current) use of anticoagulants; I48.91 Unspecified atrial fibrillation; I25.10 Atherosclerotic heart disease of native coronary artery without angina pectoris; Z86.718 Personal history of other venous thrombosis and embolism; I10 Essential (primary) hypertension; I25.2 Old myocardial infarction; E11.9 Type 2 diabetes mellitus without complications; Z86.73 Personal history of transient ischemic attack (TIA), and cerebral infarction without residual deficits
CPT/HCPCS: 31241; 12345; J0171; J0330; J2001; J2370; J2405; J2765; J3010; J3490; J7030

== ENCOUNTER 2019-06-18 12:09 | Emergency (ER) | payer MEDICARE, SELFPAY | END 2019-06-18 12:33 | disposition left against medical advice (07) | LOC: ER 06-20 10:00 | PROVIDERS: Emergency Provider Family Medicine; Family Provider Family Medicine; PCP Family Medicine | DX: Z53.21 Procedure and treatment not carried out due to patient leaving prior to being seen by health care provider (principal) | CPT/HCPCS: 99281 ==

== ENCOUNTER 2019-06-18 12:20 | Outpatient (CLI) | payer MEDICARE, SELFPAY ==
--- NOTE | 2019-06-18 12:28 | CT_ITS ---
WS: [id number] CT HEAD TECHNIQUE: Noncontrast CT of the head obtained from the skullbase to the vertex. CLINICAL INFORMATION: LOSS OF CONSCIOUSNESS, FREQUENT FALLS COMPARISON: 5 29,007 DLP: 870.[address] scans at [facility] use at least one of these dose optimization techniques: automat ed exposure control; mA and/or kV adjustment per patient size (includes targeted exams where dose is matched to clinical indication); or iterative reconstruction. FINDINGS: No evidence of intracranial hemorrhage or mass effect. Ventricular system and basal cisterns are regalado nt. Mild small vessel changes with moderate parenchymal volume loss. No extra-axial fluid collections . No evidence of mass or mass effect. Normal lugo-white differentiation. Paranasal sinuses and mastoid air cells are well aerated. .Normal visualized soft tissues. CT/CT head wo con* [id number] IMPRESSION: 1. No evidence of intracranial hemorrhage or mass effect. 2. Mild small vessel changes. Moderate parenchymal volume loss. 3. No acute intracranial findings.
--- NOTE | 2019-06-18 12:28 | USCV_ITS ---
Keenan Knight Age: 79 Gender: M : 1940 Exam Date: 06/18/2019 13:25 Ordering Phys: Nyasia Parr NP Technologist: Gerald Adkins [place] [facility] [place]: SYNCOPE Risk Factors: Previous Vascular Surgery: Right Brachial BP: / Left Brachial BP: / Right Left Velocity (cm/s) Spectral Plaque Velocity (cm/s) Spectral Plaque Syst/Diast Broadening Syst/Diast Broadening 63.90/ 12.10 Prox CCA 54.80 / 13.20 70.60/ 11.00 Mid CCA 55.00 / 12.50 54.00/ 9.90 Hetro Distal CCA 49.30 / 10.40 Hetro 70.20/ 15.40 Hetro Prox ICA 49.20 / 14.10 Homo 69.20/ 18.30 Mid ICA 50.00 / 13.00 57.50/ 13.00 Distal ICA 60.40 / 16.30 79.80 ECA 88.80 0.99 ICA/CCA 1.10 Antegrade Vertebral Antegrade 39.00/ 12.00 cm/s 35.60/ 8.50 cm/s Tri Subclavian Tri 84.10 73.10 CONCLUSIONS Right ICA stenosis <50%. Left ICA stenosis <50%. Mild atheromatous plaque right carotid bulb/ICA. Mild atheromatous plaque left carotid bulb/ICA. Normal antegrade Doppler flow noted in the right vertebral artery. Normal antegrade Doppler flow noted in the left vertebral artery. Garth Zavala MD (Electronically Signed) Final Date: 19 June 2019 16:08 S
--- NOTE | 2019-06-18 12:29 | USCV_ITS ---
Keenan Knight Age: 79 Gender: M : 1940 Exam Date: 06/18/2019 13:12 Ordering Phys: Nyasia Parr NP Technologist: Gerald Adkins Exam Location: [facility] – [place] Indication: BP: 130 / 73 HR: 77 Rhythm: Sinus Technical Quality: TDS MEASUREMENTS (Male / Female) Normal Values 2D ECHO LV Diastolic Diameter PLAX 4.1 cm 4.2 - 5.9 / 3.9 - 5.3 cm LV Systolic Diameter PLAX 2.5 cm IVS Diastolic Thickness 1.3 cm 0.6 - 1.0 / 0.6 - 0.9 cm IVS Systolic Thickness 1.5 cm LVPW Diastolic Thickness 1.2 cm 0.6 - 1.0 / 0.6 - 0.9 cm LVPW Systolic Thickness 1.8 cm LVOT Diameter 2.1 cm LV Ejection Fraction 2D Teich 68.5 % LV Ejection Fraction MOD 2C 66.7 % LV Ejection Fraction 2C AL 67.6 % LA Diameter 5.8 cm LA Width 4.9 cm LA Height 5.8 cm RA Width 3.8 cm RA Height 5.4 cm M-MODE LV Diastolic Diameter MM 4.6 cm 4.2 - 5.9 / 3.9 - 5.3 cm LV Systolic Diameter MM 2.9 cm LV Ejection Fraction MM Teich 65.1 % IVS Diastolic Thickness MM 1.2 cm 0.6 - 1.0 / 0.6 - 0.9 cm IVS Systolic Thickness MM 1.7 cm LVPW Diastolic Thickness MM 1.2 cm 0.6 - 1.0 / 0.6 - 0.9 cm LVPW Systolic Thickness MM 1.7 cm RV Diastolic Diameter MM 1.9 cm Aortic Annulus Diameter 4.1 cm LA Ao Ratio MM 1.4 MV E Point Septal Separation 0.8 cm DOPPLER AV Peak Velocity 149.0 cm/s LVOT Peak Velocity 73.0 cm/s AV Area Cont Eq vti 1.6 cm squared AV Area Cont Eq pk 1.7 cm squared MV Area PHT 5.0 cm squared Mitral E to A Ratio 4.0 MV E' Velocity 12.0 cm/s Mitral E to MV E' Ratio 8.3 Mitral E to LV E' Lateral Ratio 9.6 Mitral E to LV E' Septal Ratio 7.4 TR Peak Velocity 286.0 cm/s TR Peak Gradient 32.6 mmHg TV Peak E Velocity 109.0 cm/s Right Atrial Pressure 3.0 mmHg Pulmonary Artery Systolic Pressu 35.7 mmHg PV Peak Velocity 144.0 cm/s FINDINGS Left Ventricle Poor quality study with poor visualization. Left ventricular size and function are likely normal. No obvious wall motion disturbances. Diastolic function cannot be determined. Right Ventricle Normal right ventricular size and systolic function. Right Atrium The right atrium is normal in size. Left Atrium Mildly increased left atrial size. Mitral Valve Mitral valve not well visualized. Aortic Valve Aortic valve not well visualized. Tricuspid Valve Tricuspid valve not well visualized. Pulmonic Valve Pulmonic valve not well visualized. Pericardium Normal pericardium without effusion. Aorta Normal ascending aorta dimension. CONCLUSIONS Poor quality study with poor visualization. Left ventricular size and function are likely normal. No obvious wall motion disturbances. Diastolic function cannot be determined. There are no prior echocardiogram studies to compare. Dr. Ernesto Mullins MD (Electronically Signed) Final Date: 19 June 2019 08:14 S
== END 2019-06-18 12:21 | disposition home or self-care (01) ==
PROVIDERS: Family Provider Family Medicine; PCP Family Medicine; Visit Provider Nurse Practitioner Family
DX: R40.20 Unspecified coma (principal); R29.6 Repeated falls; I65.23 Occlusion and stenosis of bilateral carotid arteries
CPT/HCPCS: 70450; 93306; 93880

== ENCOUNTER 2019-10-03 08:31 | Outpatient (CLI) | payer MEDICARE, SELFPAY ==
--- NOTE | 2019-10-03 08:38 | US_ITS ---
WS: [id number] Complete ABDOMINAL ULTRASOUND HISTORY: ABD PAIN COMPARISON: None available. Liver: 17.7 cm in length. Mild diffuse hepatic steatosis. No mass identified. The entire liver is not well imaged due to attenuation. Gallbladder: Normally distended gallbladder with mild diffuse gallbladder wall thickening. No stones. Gallbladder wall thickness: 0.3 cm. Pancreas: Not visualized. CBD: 0.5 cm. Right kidney: 9.7 cm x 3.6 cm x 5.0 cm. No mass, cortical thickening or hydronephrosis. Left kidney: 9.9 cm x 4.7 cm x 5.4 cm. No mass, cortical thickening or hydronephrosis. Spleen: Normal size and echogenicity. Abdominal aorta and IVC are within normal limits. No ascites. US/US abdomen complete* [id number] IMPRESSION: 1. Moderate hepatic steatosis. The entire liver is not well visualized. 2. No cholelithiasis. Mild diffuse gallbladder wall thickening may be on the b asis of hepatocellular disease. No evidence for acute cholecystitis. 3. Normal spleen.
== END 2019-10-03 08:32 | disposition home or self-care (01) ==
PROVIDERS: PCP Family Medicine; Visit Provider Nurse Practitioner Family
DX: R10.9 Unspecified abdominal pain (principal); K76.0 Fatty (change of) liver, not elsewhere classified
CPT/HCPCS: 76700

== ENCOUNTER 2019-10-09 14:03 | Emergency (ER) | payer MEDICARE, SELFPAY ==
[2019-10-09 14:04] VITALS: BMI 31.1
[2019-10-09 14:09] VITALS: BP 128/73; PULSE 75; RESP 18; TEMP 36.9; O2SAT 94
--- NOTE | 2019-10-09 14:16 | CT_ITS ---
WS: [id number] CT HEAD TECHNIQUE: Noncontrast CT of the head obtained from the skullbase to the vertex. CLINICAL INFORMATION: Closed head trauma on blood thinners COMPARISON: June 18, 2019 DLP: 853.[address] scans at [facility] use at least one of these dose optimization techniques: automat ed exposure control; mA and/or kV adjustment per patient size (includes targeted exams where dose is matched to clinical indication); or iterative reconstruction. FINDINGS: No evidence of intracranial hemorrhage or mass effect. Ventricular system and basal cisterns are regalado nt. Mild small vessel changes with moderate parenchymal volume loss. No extra-axial fluid collections . No evidence of mass or mass effect. Normal lugo-white differentiation. Paranasal sinuses and mastoid air cells are well aerated. . Soft tissue edema overlying the left fron tiffany calvarium and superior left orbit. No visualized calvarial fractures. IMPRESSION: 1. No evidence of intracranial hemorrhage or mass effect. 2. Mild small vessel changes. Moderate parenchymal volume loss. 3. Soft tissue edema overlying the left frontal calvarium and superior orbit. 4. No acute intracranial findings. Notified Michael Gamboa DO at 10/09/2019 3:18 PM.
--- NOTE | 2019-10-09 14:17 | ED_ITS ---
HPI - Fall General: Chief Complaint: Fall Stated Complaint: FALL Time Seen by Provider: 10/09/19 14:16 History of Present Illness: HPI Narrative: 79-year-old male presented to the emergency room with complaint of hitting his head he is on blood thinners. He stumbled on a walker. He is laceration above his left eye is no loss consciousness he can recall the events before and after he denies any other injuries. No chest pain no weakness no shortness of breath no weakness in the extremities. MD complaint: fall Onset (ago): minute(s) Fall from: standing Fall witnessed: no Place fall occurred: home Prolonged down time: no Context: tripped/slipped Location of injury: head Associated symptoms-after fall: Reports no associated symptoms; Denies abdominal pain or chest pain Review of Systems Const: Denies: fever(s), chills, body aches, change in appetite, fatigue or malaise ENMT: Denies: throat pain, ear or mastoid pain, nasal discharge or nasal congestion Card: Denies: chest pain, edema, dyspnea on exertion or orthopnea Resp: Denies: dyspnea, productive cough or non-productive cough GI: Denies: abdominal pain, nausea, vomiting, hematemesis, coffee ground emesis, diarrhea, constipation, bloating, hematochezia or melena : Denies: flank pain, dysuria, urinary frequency or urinary urgency Skin/Breast: Denies: rash or pruritus [facility] ED PFSH: Medical History (Updated 10/09/19 @ 17:09 by Michael Gamboa DO) Atrial fibrillation Back pain Cataract COPD (chronic obstructive pulmonary disease) Epistaxis not due to trauma Gout Hyperlipidemia Hypertension Prostate cancer Pulmonary embolism Sleep apnea Urinary frequency Surgical History H/O hemorrhoidectomy Hx of tonsillectomy Family History Other Cancer Social History Smoking and tobacco status: former smoker Alcohol intake: former Physical Exam Const: COMMON NORMALS: no acute distress GENERAL APPEARANCE: cooperative and comfortable HENMT: COMMON NORMALS: normocephalic and atraumatic HEAD & SCALP: normocephalic and atraumatic Eye: COMMON NORMALS: Equal, round and reactive pupils present, EOMs intact bilaterally, conjunctivae normal and no scleral icterus CONJUNCTIVA: Yes conj unctivae normal PUPIL: Yes Equal, round and reactive pupils present Neck/C-Spine: COMMON NORMALS: full ROM, no lymphadenopathy, supple and no JVD Lymph: LYMPHATIC: no lymphadenopathy noted and no lymphedema noted Resp: COMMON NORMALS: normal respiratory effort, No retractions, No use of accessory muscles and clear to auscultation bilaterally AUSCULTATION: clear to auscultation bilaterally Cardio: COMMON NORMALS: no JVD, regular rate, regular rhythm and No murmurs present (Cardio) RATE: regular rate RHYTHM: regular rhythm GI: COMMON NORMALS: Soft to palpation and No hepatosplenomegaly present AUSCULTATION: Yes normoactive bowel sounds PALPATION: Yes Soft to palpation, No Tenderness to palpation present (GI), No Guarding due to palpation present (GI) and Yes No hepatosplenomegaly present Extremity: COMMON NORMALS: normal to inspection, capillary refill normal, no clubbing, cyanosis or edema, no calf tenderness and no pedal edema Skin: COMMON NORMALS: no rashes or lesions noted GENERAL SKIN EXAM: no rashes or lesions noted Procedures Laceration Laceration 1: Site: face Side (If applicable): left Size (cm): 3 Description: irregular Depth: simple, single layer Local Anesthetic: lidocaine 1% and with epi Amount of anesthesia used (mL): 2 Pre-repair: irrigated extensively Skin layer closed with: nylon Size (cm): 5-0 Number of sutures: 4 Technique: simple, interrupted Course Vital Signs: Vital signs: Vital Signs Temperature 98.4 F 10/09/19 14:09 Pulse Rate 78 10/09/19 17:35 Respiratory Rate 18 10/09/19 17:35 Blood Pressure 131/78 10/09/19 17:35 Pulse Oximetry 94 10/09/19 17:35 MDM - Fall MDM Narrative: Medical decision making narrative: Patient has significant drainage from wound above his left eye full-thickness laceration very small but it is being bleeding heavily. Wound closed with interrupted sutures see procedure note. Patient tolerated well he is awake and alert, scans unremarkable, discharge home. Good cosmesis and hemostasis and closure of space with the laceration repair. Lab Data: Labs: Lab Results 07/10/09/19 10/09/19 Range/Units 14:32 14:32 14:32 WBC 8.0 (4.0-10.0) 10^3/ uL RBC 4.67 (4.1-5.3) 10^6/u L Hgb 13.0 (11.7-16.6) g/dL Hct 39.8 L (42.0-52.0) % MCV 85.2 (80-94) fL MCH 27.8 L (28.0-34.0) pg MCHC 32.7 (30.0-36.0) g/dL RDW 14.1 (12.1-15.1) % Plt Count 165 (130-400) 10^3/c mm MPV 11.6 H (7.4-10.4) fL Neut % (Auto) 70.5 % Lymph % (Auto) 17.8 % [place]he % (Auto) 10.2 % Eos % (Auto) 1.1 % Baso % (Auto) 0.3 % Neut # (Auto) 5.62 (1.8-7.7) 10^3/u L Lymph # (Auto) 1.4 (0.8-4.8) 10^3/u L Ashe # (Auto) 0.8 (0.2-0.9) 10^3/u L Eos # (Auto) 0.1 (0.0-0.8) 10^3/u L Baso # (Auto) 0.0 (0.0-0.1) 10^3/u L Nucleated RBC % (a uto) 0 % Nucleated RBCs # 0.0 /100WBC PT 17.10 H (10.5-13.3) SECO NDS INR 1.35 H (0.8-1.2) Sodium 140 (136-145) mmol/L Potassium 4.3 (3.5-5.1) mmol/L Chloride 104 (98-107) mmol/L Carbon Dioxide 25 (22-29) mmol/L Anion Gap 15.3 (5-19) BUN 20 (8-23) mg/dL Creatinine 1.5 H (0.7-1.2) mg/dL GFR Calculation Not Reportable Glucose 141 H (65-115) mg/dL Calculated Osmolal ity 289 (285-295) mOsm/k g Calcium 9.8 (8.5-10.5) mg/dL Total Bilirubin 0.3 (0.15-1.2) mg/dL AST 24 (0-40) U/L ALT 16 (0-41) U/L Alkaline Phosphata se 118 (40-130) IU/L Total Protein 7.0 (6.6-8.7) g/dL Albumin 4.4 (3.5-5.2) g/dL Globulin 2.6 (1.3-4.6) g/dL Discharge Plan Discharge Patient Disposition: Home Clinical Impression: Fall, Laceration Condition: Stable Prescriptions: No Action furosemide 40 mg tablet 20 mg PO DAILY RF: 0 atorvastatin 80 mg tablet 80 mg PO DAILY RF: 0 venlafaxine 75 mg tablet 75 mg PO DAILY RF: 0 lorazepam 0.5 mg tablet 0.5 mg PO DAILY PRN (Reason: Anxiety) RF: 0 gemfibrozil 600 mg tablet 600 mg PO DAILY RF: 0 hydroxyzine HCl 25 mg tablet 12.5 mg PO DAILY RF: 0 allopurinol 300 mg tablet 300 mg PO DAILY RF: 0 atenolol 50 mg tablet 25 mg PO DAILY RF: 0 potassium chloride 10 mEq tablet,ER particles/crystals 10 meq PO DAILY RF: 0 ipratropium-albuterol 0.5 mg-3 mg(2.5 mg base)/3 mL Solution For Nebulization 3 ml inhalation Q4H.RESPIRATORY PRN (Reason: Wheezing) Qty: 120 RF: 0 Eliquis 5 mg tablet 5 mg PO BID Qty: 60 RF: 0 ChlorTabs 4 mg Tablet 4 mg PO BID RF: 0 famotidine 20 mg Tablet 20 mg PO BID RF: 0 aspirin 81 mg Tablet,Chewable 81 mg PO DAILY RF: 0 PreserVision AREDS-2 [phone] [id number]-rrip-[id number]-mg Capsule 1 tab PO BID RF: 0 hydrocodone-acetaminophen [[place]] 5-325 mg tablet 1 tab PO Q4H PRN (Reason: pain) Qty: 20 RF: 0 Discharge Orders: Discharge Order (Routine); Ordered 10/09/19 Ordered By: Michael Gamboa Referrals: Jairo Davalos Jr, MD [Primary Care Provider] - Discharge Diet: Usual diet Discharge Activity: Increase activity as tolerated Activity Restrictions/Additional Instructions: Sutures removed in 1 week apply topical antibiotic ointment twice a day to the sutures Discharge Date/Time: 10/09/19 17:25 Coding Level of Care Code 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
--- NOTE | 2019-10-09 14:44 | CT_ITS ---
WS: [id number] CT FACIAL BONES TECHNIQUE: Noncontrast facial bones with coronal and sagittal reformatted images. CLINICAL INFORMATION: FALL COMPARISON: None. DLP: 949.[address] scans at [facility] use at least one of these dose optimization techniques: automat ed exposure control; mA and/or kV adjustment per patient size (includes targeted exams where dose is matched to clinical indication); or iterative reconstruction. FINDINGS: Diffuse soft tissue edema and contusion overlying the left inferior frontal calvarium and left suprao rbital rim. No visualized left orbital fractures. Lateral orbits are intact. Normal pterygoid plates. [place] are normal. Trace fluid in the maxillary sinuses. Anterior nasal bones are normal. Evidence of prior paranasal sinus surgery with bilateral maxillary antrostomies and turbinate reducti ons. Paranasal sinuses are well aerated. Mastoid air cells well aerated. Trace fluid in the maxillary sinuses. Normal parapharyngeal fat. Slight irregularity and bony thinning along the left frontal sinus is unchanged since June 18, 2019. Mandible is normal in appearance. No evidence of mandibular fracture or dislocation. Notified Michael Gamboa DO at 10/09/2019 3:[address]/CT facial bones wo con* [id number] IMPRESSION: 1. Large amount of soft tissue swelling and contusion involving the left front al calvarial and supraorbital soft tissues. 2. No visualized acute facial fractures. 3. No orbital fractures 4. Evidence of prior paranasal sinus surgery. 5. Trace fluid in the maxillary sinuses.
[2019-10-09 15:02] LABS: Basophils % 0.3 %; Eosinophils # 0.1 10^3/uL (0.0-0.8); Eosinophils % 1.1 %; Hematocrit 39.8 % (42.0-52.0); Lymphocytes # 1.4 10^3/uL (0.8-4.8); Lymphocytes % 17.8 %; Mean Corpuscular HGB Conc 32.7 g/dL (30.0-36.0); Mean Corpuscular Hemoglobin 27.8 pg (28.0-34.0); Mean Corpuscular Volume 85.2 fL (80-94); Mean Platelet Volume 11.6 fL (7.4-10.4); Monocytes # 0.8 10^3/uL (0.2-0.9); Monocytes % 10.2 %; Neutrophils # 5.62 10^3/uL (1.8-7.7); Neutrophils % 70.5 %; Nucleated Red Blood Cells % 0 %; Platelet Count 165 10^3/cmm (130-400); Red Blood Count 4.67 10^6/uL (4.1-5.3); Red Cell Distribution Width 14.1 % (12.1-15.1)
[2019-10-09 15:19] LABS: INR 1.35 (0.8-1.2)
[2019-10-09 15:40] LABS: Alanine Aminotransferase 16 U/L (0-41); Albumin Level 4.4 g/dL (3.5-5.2); Alkaline Phosphatase 118 IU/L (40-130); Anion Gap 15.3 (5-19); Aspartate Amino Transferase 24 U/L (0-40); Blood Urea Nitrogen 20 mg/dL (8-23); Calcium 9.8 mg/dL (8.5-10.5); Carbon Dioxide 25 mmol/L (22-29); Chloride 104 mmol/L (98-107); Globulin 2.6 g/dL (1.3-4.6); Glucose 141 mg/dL (65-115); Osmolality Calculated 289 mOsm/kg (285-295); Potassium 4.3 mmol/L (3.5-5.1); Sodium 140 mmol/L (136-145); Total Bilirubin 0.3 mg/dL (0.15-1.2)
[2019-10-09] MEDS: tetanus-dipt-pertussis 0.5 mL SDV IM (16:51)
[2019-10-09 17:35] VITALS: BP 131/78; PULSE 78; RESP 18; O2SAT 94
== END 2019-10-09 17:25 | disposition home or self-care (01) ==
PROVIDERS: Emergency Provider Family Medicine; PCP Family Medicine
DX: S01.81XA Laceration without foreign body of other part of head, initial encounter (principal); Z79.01 Long term (current) use of anticoagulants; Z79.82 Long term (current) use of aspirin; I48.91 Unspecified atrial fibrillation; J44.9 Chronic obstructive pulmonary disease, unspecified; E78.5 Hyperlipidemia, unspecified; I10 Essential (primary) hypertension; Z85.46 Personal history of malignant neoplasm of prostate; Z87.891 Personal history of nicotine dependence; W01.0XXA Fall on same level from slipping, tripping and stumbling without subsequent striking against object, initial encounter; Z23 Encounter for immunization
CPT/HCPCS: 12013; 12345; 70450; 70486; 80053; 85025; 85610; 90471; 90715; 99281; 99283

== ENCOUNTER 2019-10-20 21:39 | Emergency (ER) | payer MEDICARE, SELFPAY ==
[2019-10-20 21:43] VITALS: BP 152/91; PULSE 82; RESP 18; TEMP 35.9; O2SAT 94; BMI 31.1
--- NOTE | 2019-10-20 22:06 | ED_ITS ---
HPI - Wound/Laceration General: Chief Complaint: Wound/Laceration Stated Complaint: head injury Time Seen by Provider: 10/20/19 21:51 Source: patient Mode of arrival: ambulatory Limitations: no limitations History of Present Illness: HPI narrative: 79-year-old male who had a head laceration 10 days ago and had sutures removed Sunday. He states he started bleeding today. He does have a small laceration left over that is actively bleeding. Patient is on Eliquis. He denies any worsening improving factors. He states that it just started tonight. Associated symptoms: Denies chills, fever(s), nausea or vomiting Review of Systems Const: Denies: fever(s), chills, body aches or change in appetite Eyes: Denies: blurry vision or eye discomfort ENMT: Denies: throat pain or dental pain Card: Denies: chest pain Resp: Denies: dyspnea GI: Denies: abdominal pain, nausea, vomiting or diarrhea : Denies: dysuria Musc: Denies: neck pain or back pain Skin/Breast: Denies: rash Neuro: Denies: headache(s) Psych: Denies: depression Pipo/Lymph: Denies: easy bruising All/Imm: Denies: urticaria PFSH ED PFSH: Medical History (Updated 10/20/19 @ 22:34 by Dennis Noriega MD) Atrial fibrillation Back pain Cataract COPD (chronic obstructive pulmonary disease) Epistaxis not due to trauma Gout Hyperlipidemia Hypertension Prostate cancer Pulmonary embolism Sleep apnea Urinary frequency Surgical History H/O hemorrhoidectomy Hx of tonsillectomy Family History Other Cancer Social History Smoking and tobacco status: former smoker Alcohol intake: former Physical Exam Const: COMMON NORMALS: no acute distress, patient oriented x3 and healthy appearing HENMT: COMMON NORMALS: normocephalic HEAD & SCALP: normocephalic OTHER: Small 1 cm laceration to head that is actively bleeding Eye: COMMON NORMALS: Equal, round and reactive pupils present and EOMs intact bilaterally PUPIL: Yes Equal, round and reactive pupils present Neck/C-Spine: COMMON NORMALS: full ROM and supple Chest: COMMONS NORMALS: normal inspection of the chest and normal palpation of entire chest wall Resp: COMMON NORMALS: normal respiratory effort, No retractions, No use of accessory muscles and clear to auscultation bilaterally AUSCULTATION: clear to auscultation bilaterally Cardio: COMMON NORMALS: regular rate, regular rhythm and No murmurs present ( Cardio) RATE: regular rate RHYTHM: regular rhythm GI: COMMON NORMALS: Normal to inspection, nondistended, normoactive bowel sounds present, Soft to palpation, non-tender and no masses PALPATION: Yes Soft to palpation Extremity: COMMON NORMALS: normal to inspection and full ROM Neuro: COMMON NORMALS: patient oriented x3, moves all extremities and no focal motor deficits Psych: COMMON NORMALS: mental status grossly normal, Normal thought process present and cooperative THOUGHT PROCESS: Normal thought process present Skin: COMMON NORMALS: no rashes or lesions noted and no wounds GENERAL SKIN EXAM: no rashes or lesions noted Procedures Laceration Laceration 1: Site: scalp Size (cm): 1 Description: linear Local Anesthetic: lidocaine 1% Amount of anesthesia used (mL): 10 Skin layer closed with: vicryl Size (cm): 4-0 Number of sutures: 2 Technique: other ([id number]) Course Vital Signs: Vital signs: Vital Signs Temperature 96.7 F L 10/20/19 21:43 Pulse Rate 74 10/20/19 22:10 Respiratory Rate 16 10/20/19 22:10 Blood Pressure 158/92 10/20/19 22:10 Pulse Oximetry 98 10/20/19 22:10 MDM - Wound/Laceration MDM Narrative: Medical decision making narrative: Patient presents here with head laceration started bleeding in. Patient is on blood thinners likely had a hematoma that just started bleeding. I did place 2 hrbhoh-dd-rcucm sutures and was able to evacuate the hematoma he has had no more bleeding. Pressure dressing was placed. Patient's INR drawn will follow up with his PCP tomorrow. Patient is to return if worsening. Lab Data: Labs: Lab Results 10/20/19 Range/Units 22:25 PT 15.70 H (12.1-14.9) SECO NDS INR 1.21 H (0.8-1.2) Discharge Plan Discharge Patient Disposition: Home Clinical Impression: Laceration Condition: Stable Prescriptions: No Action furosemide 40 mg tablet 20 mg PO DAILY RF: 0 atorvastatin 80 mg tablet 80 mg PO DAILY RF: 0 venlafaxine 75 mg tablet 75 mg PO DAILY RF: 0 lorazepam 0.5 mg tablet 0.5 mg PO DAILY PRN (Reason: Anxiety) RF: 0 gemfibrozil 600 mg tablet 600 mg PO DAILY RF: 0 hydroxyzine HCl 25 mg tablet 12.5 mg PO DAILY RF: 0 allopurinol 300 mg tablet 300 mg PO DAILY RF: 0 atenolol 50 mg tablet 25 mg PO DAILY RF: 0 potassium chloride 10 mEq tablet,ER particles/crystals 10 meq PO DAILY RF: 0 ipratropium-albuterol 0.5 mg-3 mg(2.5 mg base)/3 mL Solution For Nebulization 3 ml inhalation Q4H.RESPIRATORY PRN (Reason: Wheezing) Qty: 120 RF: 0 Eliquis 5 mg tablet 5 mg PO BID Qty: 60 RF: 0 ChlorTabs 4 mg Tablet 4 mg PO BID RF: 0 famotidine 20 mg Tablet 20 mg PO BID RF: 0 aspirin 81 mg Tablet,Chewable 81 mg PO DAILY RF: 0 PreserVision AREDS-2 [phone] xq-dlna-ye-mg Capsule 1 tab PO BID RF: 0 hydrocodone-acetaminophen [[place]] 5-325 mg tablet 1 tab PO Q4H PRN (Reason: pain) Qty: 20 RF: 0 Discharge Orders: Discharge Order (Routine); Ordered 10/20/19 Ordered By: Dennis Noriega Referrals: Jairo Davalos Jr, MD [Primary Care Provider] - 1-3 days Discharge Diet: Advance as tolerated Discharge Activity: Resume usual activity Patient Instructions: Laceration (ED) Discharge Date/Time: 10/20/19 22:46 Coding Level of Care Code ED Security Advisor for Chg Fwd Exam Comprehensive
[2019-10-20 22:10] VITALS: BP 158/92; PULSE 74; RESP 16; O2SAT 98
[2019-10-20 22:47] LABS: INR 1.21 (0.8-1.2)
== END 2019-10-20 22:46 | disposition home or self-care (01) ==
PROVIDERS: Emergency Provider Emergency Medicine; PCP Family Medicine
DX: S01.01XA Laceration without foreign body of scalp, initial encounter (principal); X58.XXXA Exposure to other specified factors, initial encounter; Z79.01 Long term (current) use of anticoagulants; Z79.82 Long term (current) use of aspirin; I48.91 Unspecified atrial fibrillation; J44.9 Chronic obstructive pulmonary disease, unspecified; E78.5 Hyperlipidemia, unspecified; I10 Essential (primary) hypertension; Z85.46 Personal history of malignant neoplasm of prostate; Z87.891 Personal history of nicotine dependence
CPT/HCPCS: 12001; 12345; 36415; 85610; 99281; 99282

== ENCOUNTER → 2020-04-23 18:36 | Outpatient (BNVA) | payer MEDICARE, SELFPAY | PROVIDERS: PCP Family Medicine; Visit Provider Nurse Practitioner | DX: S52.572A Other intraarticular fracture of lower end of left radius, initial encounter for closed fracture (principal); W19.XXXA Unspecified fall, initial encounter; M25.532 Pain in left wrist | CPT/HCPCS: 73110 ==

== ENCOUNTER → 2020-04-24 13:49 | Outpatient (BNVA) | payer MEDICARE, SELFPAY | PROVIDERS: PCP Family Medicine; Visit Provider Nurse Practitioner | DX: Z01.812 Encounter for preprocedural laboratory examination (principal); Z20.828 Contact with and (suspected) exposure to other viral communicable diseases | CPT/HCPCS: 87635 ==

== ENCOUNTER 2020-04-29 12:36 | Day surgery (SDC) | payer MEDICARE, SELFPAY ==
[2020-04-28 13:23] VITALS: BMI 31.8
--- NOTE | 2020-04-29 | SCC_ITS ---
Procedure Done: Open reduction and internal fixation 3 part left distal radius fracture 77 seconds of fluoroscopic guidance, for a cumulative dose of 0.81mGy, was provided to Dr. Harmon by the radiology department. C-arm images of the LEFT wrist were saved for the patient's permanent record. [facility]
[2020-04-29 13:23] VITALS: BP 125/75; PULSE 83; RESP 16; TEMP 36.6; O2SAT 91
[2020-04-29] MEDS: sodium chloride 0.9% 1,000 ML 30 ML IV (13:26)
--- NOTE | 2020-04-29 14:22 | ANES.PREANE2 ---
Pre-Anesthetic Assessment Pre-Anesthetic Assessment: Height/Weight: Height 1.98 m Weight 124.738 kg Temp Pulse Resp BP Pulse Ox 97.9 F 83 16 125/75 91 04/29/20 13:23 04/29/20 13:23 04/29/20 13:23 04/29/20 13:23 04/29/20 13:23 Preop Diagnosis: Fracture left distal radius Proposed Procedure: Operation Date: 04/29/20 14:40 Proposed Procedures p ORIF Wrist 42126 S52.502A(Left) - Elliot aHrmon MD Familial anesthetic complications: None Was Beta Mariana taken within 24 hours: Yes Last intake: Intake Last Liquid Date 04/29/20 Last Liquid Time 07:55 Last Solid Date 04/28/20 Last Solid Time 17:30 Social: Social History: No alcohol and No tobacco Comment: former smoker Exam: Pre-Anes Outpt Exam: alert, oriented x 3 and regular rate & rhythm Additional Exam Findings (including area of procedure): coarse breath sounds b/l Airway: Cervical ROM: WNL MP: 4 Pulmonary: Pulmonary: COPD and Sleep apnea Comments: PE on eliquis - holding CV/HEM: CV/HEM: Afib, Angina (Stable), CAD, DVT, HTN and MT Metabolic: Metabolic: DM and Morbid obesity Anesthetic Plan: ASA status: 4 Anesthesia: General and Regional (specify below) Risk of > 500 ml blood loss (7ml/kg in children): No Meds/Allergies Current Medications: Current Medications Generic Name Dose Route Start Last Admin Trade Name Freq PRN Reason Stop Dose Admin Sodium Chloride 1,000 mls @ 30 ml s/hr 04/29/20 13:00 04/29/20 13:26 Sodium Chloride 0.9% IV 04/30/20 12:59 30 mls/hr .Q24H MELVA Administration PFSH Anesthesia PFSH: Medical History Atrial fibrillation Back pain Cataract COPD (chronic obstructive pulmonary disease) Epistaxis not due to trauma Gout Hyperlipidemia Hypertension Prostate cancer Pulmonary embolism Sleep apnea Urinary frequency Surgical History H/O hemorrhoidectomy Hx of tonsillectomy Family History Other Cancer Social History Smoking and tobacco status: former smoker Alcohol intake: former Data Anesthesia Cardiac Studies: Holter Monitor 10/21/19
--- NOTE | 2020-04-29 14:23 | ANES.PROC ---
Anesthesia Procedures Procedure/Date: 04/29/20 Nerve Block ^: Nerve Block 1: Main Anesthesia: general anesthesia Time Out Performed: Yes Consent: requested by attending/covering physician, from patient, from other, risks and benefits reviewed and patient agrees to proceed Nerve block location: axillary (L (+ musculocutaneous nerve)) Nerve block position: supine Anesthetic Used: ropivicaine 0.5% and with decadron (4 mg) Amount of anesthesia used (mL): 30 Ultrasound used to: recognize landmarks and visualize and ID brachial plexus Nerve Stimulator Used?: No Interscalene/Femoral BLK: 2 stimuplex 22 g needle used for position and inplane approach, visualize local anesthetic spread and no vascular puncture identified Injection: neg aspiration of heme and paresthesia +/- Patient Tolerated Procedure: well and no complications Complications: none
--- NOTE | 2020-04-29 16:02 | W.PM.OPSUD ---
Surgery/Procedure H&P Update DATE OF PROCEDURE: April 29, 2020 DATE H&P PERFORMED: 04/27/20 PREOP DIAGNOSIS: Fracture left distal radius PLANNED PROCEDURE: Operation Date: 04/29/20 14:40 Proposed Procedures p ORIF Wrist 25302 S52.502A(Left) - Elliot Harmon MD
--- NOTE | 2020-04-29 17:20 | XR_ITS ---
WS: [id number] C-ARM RADIOGRAPHS LEFT WRIST; 3 IMAGES HISTORY: LT. WRIST FRACTURE COMPARISON: 04/23/2020 Intraoperative imaging during ORIF distal comminuted radial fracture. Fracture now in good position a nd alignment. XR/XR wrist LT 2V [id number] IMPRESSION: Status post ORIF distal radial fracture now in good position and alignment.
--- NOTE | 2020-04-29 17:38 | P.OP_ITS ---
Operative Report Date of procedure: April 29, 2020 Pre-op Diagnosis: Fracture left distal radius, intra-articular Post-op diagnosis: same Post-op Findings: Same Procedure Done: Open reduction and internal fixation 3 part left distal radius fracture Implants: [place] Variax Standard width plate Pathology: none sent Surgeon: Elliot Harmon Anesthesia: Nerve Block (Axillary nerve block) Estimated blood loss (mL): 100 Complications: None Findings: The patient had a intra-articular fracture of the left distal radius with dorsal comminution and a sagittal intra-articular split Condition: stable Disposition: PACU Procedure: Initial attempts were made at closed reduction however a satisfactory stable reduction could not be obtained. A decision was made to proceed with open reduction internal fixation.A 5 cm long incision was made along over the flexor carpi radialis tendon. Dissection was carried down through the tendon sheath. Dissection was carried down bluntly to the pronator quadratus. The pronator quadratus was elevated off of the distal radius leaving a cuff for later repair. Closed reduction was accomplished of the distal radius with volar and radial longitudinal traction. Direct pressure was applied of the dorsal fragment through the skin reducing it as screws were placed.. A Nate Variax standard with intermediate length plate was applied. It was fixed distally with 7 distal locking screws and proximally with 3 proximal bicortical screws. Intraoperative imaging showed excellent position of the hardware. The wound was irrigated with saline. The pronator quadratus was reapproximated with 2-0 Vicryl. Subcutaneous tissues were closed with 2-0 Vicryl. The skin was closed with skin alyssa. Sterile dressings were applied. The patient was taken to outpatient surgery in stable condition.
[2020-04-29 17:44] VITALS: BP 122/71; PULSE 73; RESP 15; TEMP 36.3; O2SAT 96
[2020-04-29 17:59] VITALS: BP 145/78; PULSE 78; RESP 15; TEMP 36.6; O2SAT 94
--- NOTE | 2020-04-29 18:41 | SUR.PHASEII ---
received from or pt very sleepy and hard to arouse after being in ops area for 45 minutes,anesthesia here and new order for bipap
[2020-04-29 18:45] VITALS: PULSE 60; RESP 21; O2SAT 93
[2020-04-29 19:32] VITALS: BP 140/83; PULSE 83; RESP 20; O2SAT 93
--- NOTE | 2020-04-29 19:54 | SUR.PHASEII ---
1930 pt awakes talks normally, pt taken off bi pap by anesthesia Maria Del Carmen JOYCE CRNA. PT ALERT TALKATIVE TAKING SIPS OF SODA ,, PT VERBALLY BELTRAN PAIN AND NAUSEA. 2004 IV DCD INTACT, SITE D/I 2X2 AND COBAND TO SITE PT UP WITH ASSIST AND HELPED WITH DRESSING SLING TO LT ARM 2014 PT UP TO W/C AND HOME WITH HELPER, PT ALERT AND TALKATIVE REQUESTS COKE TO TAKE WITH HIM.
--- NOTE | 2020-04-29 20:00 | ANE.PACU2 ---
Inpatient post-anesthesia follow up: Airway intact: Yes Vital signs: Temperature 98 F Pulse Rate 83 Respiratory Rate 20 Blood Pressure 140/83 Pulse Oximetry 93 Oxygen Delivery Me thod Room Air Oxygen Flow Rate 93 Fraction of Inspir ed Oxygen 35 Hydration adequate: Yes Nausea and vomiting: No Pain level: 2 Mental status: Baseline
== END 2020-04-29 20:15 | disposition home or self-care (01) ==
PROVIDERS: PCP Nurse Practitioner Family; Visit Provider Orthopaedic Surgery
PROC: (CPT 25609; principal; 2020-04-29 14:40)
DX: S52.572A Other intraarticular fracture of lower end of left radius, initial encounter for closed fracture (principal); W00.0XXA Fall on same level due to ice and snow, initial encounter; J44.9 Chronic obstructive pulmonary disease, unspecified; G47.30 Sleep apnea, unspecified; Z79.01 Long term (current) use of anticoagulants; Z86.711 Personal history of pulmonary embolism; I48.91 Unspecified atrial fibrillation; I25.10 Atherosclerotic heart disease of native coronary artery without angina pectoris; Z86.718 Personal history of other venous thrombosis and embolism; I10 Essential (primary) hypertension; I25.2 Old myocardial infarction; E11.9 Type 2 diabetes mellitus without complications; E66.01 Morbid (severe) obesity due to excess calories; Z68.31 Body mass index [BMI] 31.0-31.9, adult; Z85.46 Personal history of malignant neoplasm of prostate; Z87.891 Personal history of nicotine dependence
CPT/HCPCS: 25609; 64417; 73100; 76000; 76942; 94660; C1713; J0690; J1100; J2704; J2795; J7030

== ENCOUNTER → 2020-06-09 12:00 | Outpatient (BNVA) | payer MEDICARE, SELFPAY | PROVIDERS: PCP Nurse Practitioner Family; Visit Provider Orthopaedic Surgery | DX: S52.532A Colles' fracture of left radius, initial encounter for closed fracture (principal); X58.XXXA Exposure to other specified factors, initial encounter | CPT/HCPCS: 73110 ==

== ENCOUNTER → 2020-07-07 11:09 | Outpatient (BNVA) | payer MEDICARE, SELFPAY | PROVIDERS: PCP Nurse Practitioner Family; Visit Provider Orthopaedic Surgery | DX: Z48.89 Encounter for other specified surgical aftercare (principal) | CPT/HCPCS: 73110 ==

== ENCOUNTER 2020-07-19 11:36 | Inpatient (IN) | payer MEDICARE, SELFPAY ==
[2020-07-19] VITALS (102 sets, daily range): BP systolic 115–206; BP diastolic 61–111; PULSE 70–105; RESP 8–42; TEMP 36.8; O2SAT 77–99; BMI 21.0
--- NOTE | 2020-07-19 11:37 | XRR_ITS ---
PROCEDURE INFORMATION: Exam: XR Chest Exam date and time: 07/19/2020 12:01 PM Age: 80 years old Clinical indication: Dyspnea TECHNIQUE: Imaging protocol: XR of the chest. Views: 1 view. COMPARISON: CR XR chest 1V portable [id number] 04/11/2019 11:22 AM FINDINGS: Lungs: Unremarkable. No consolidation. Pleural spaces: Unremarkable. No pleural effusion. No pneumothorax. Heart/Mediastinum: Unremarkable. No cardiomegaly. Bones/joints: Unremarkable. XR/XR chest 1V portable [id number] IMPRESSION: No acute findings.
--- NOTE | 2020-07-19 11:39 | ECG_ITS ---
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 Measurements Intervals [place] Rate: 66 P: SC: QRS: 30 QRSD: 94 T: 68 QT: 383 QTc: 402 Interpretive Statements ATRIAL FIBRILLATION ABNORMAL RHYTHM ECG Compared to ECG 04/11/2019 20:35:40 No significant changes Electronically Signed On 07-20-2020 9:26:37 CDT by Debra Elliott M.D. [id number]
[2020-07-19 12:02] LABS: Basophils % 0.3 %; Eosinophils # 0.1 10^3/uL (0.0-0.8); Eosinophils % 1.1 %; Hematocrit 40.1 % (42.0-52.0); Hemoglobin 11.5 g/dL (11.7-16.6); Lymphocytes # 1.2 10^3/uL (0.8-4.8); Lymphocytes % 17.3 %; Mean Corpuscular HGB Conc 28.7 g/dL (30.0-36.0); Mean Corpuscular Hemoglobin 25.2 pg (28.0-34.0); Mean Corpuscular Volume 87.9 fL (80-94); Mean Platelet Volume 11.6 fL (7.4-10.4); Monocytes # 0.7 10^3/uL (0.2-0.9); Monocytes % 10.2 %; Neutrophils # 4.98 10^3/uL (1.8-7.7); Neutrophils % 70.7 %; Nucleated Red Blood Cells % 0 %; Platelet Count 177 10^3/cmm (130-400); Red Blood Count 4.56 10^6/uL (4.1-5.3); Red Cell Distribution Width 17.9 % (12.1-15.1); White Blood Count 7.1 10^3/uL (4.0-10.0)
[2020-07-19] MEDS: ipratropium-albuterol 3 mL Neb INHALATION ×2 (12:06→20:48)
[2020-07-19 12:15] LABS: ABG PH Result 7.27 (7.35-7.45); Alveolar-Arterial Oxygen Gradi 15.2 mmHg (5-10); Arterial Blood Gas Hematocrit 38.5 % (42-52); Base Excess ABG 7.2 mmol/L (-2.0-2.0); Blood Gas Allen Test Pos; Blood Gas Operator Identificat CAK; Blood Gas Sample Site Radial, right; Blood Gas Sample Type Arterial; Carboxyhemoglobin 2.1 %THgb (0.4-20.1); HCO3 ABG 36.9 mmol/L (22-26); HGB O2 Sat 72.5 % (95-100); Ionized Calcium Level - ABG 1.3 mmol/L (1.1-1.4); Methemoglobin 0.7 % (0.4-1.5); Oxygen Device NC; Oxygen Saturation ABG 74.6; PO2 ABG 46.2 mmHg (80.0-100.0); Potassium Level - ABG 4.1 mmol/L (3.5-5.0); Total Hemoglobin 12.6 g/dL (14-18)
[2020-07-19 12:16] LABS: ABG PCO2 80.3 mmHg (35-45)
[2020-07-19] MEDS: FUROsemide 10 mg/mL SDV 4mL 40 MG IVP (12:16)
[2020-07-19 12:20] LABS: Troponin(5th) Baseline 26 ng/L (0-15)
--- NOTE | 2020-07-19 12:22 | W.ED.SOB ---
HPI - SOB/Dyspnea General: Chief Complaint: Shortness of Breath/Dyspnea Stated Complaint: DIFF BREATHING Time Seen by Provider: 07/19/20 11:37 History of Present Illness: HPI Narrative: The patient is an 80-year-old male with past medical history COPD and CHF. Also A. fib on Eliquis. He comes to the ER complaining of shortness of breath today. He went to a clinic appointment earlier to get refills on his inhalers which have . There he was satting 68% on room air and sent to the ER for evaluation. Here he says he has been short of breath for several days and its been worsening. He went to the clinic today to try and get refills on his inhalers but was sent here. He has COPD and CHF. EMS gave him 125 Solu-Medrol in route and a DuoNeb. He says the neb did improve his shortness of breath some. He has had 2 rounds of the Covid vaccine with the last shot 1 week ago. MD elicited complaint: shortness of breath and cough Pertinent past history: COPD and congestive heart failure Onset (ago): day(s) (7) Timing: progressively worsening Severity: severe Exacerbating factors: exertion Relieving factors: rest, bronchodilators and upright position Known history of: COPD and congestive heart failure Associated symptoms: Deny abdominal pain, chest pain, dizziness, extremity pain, orthopnea, palpitations or polyuria Review of Systems General: Reports: 10 or more systems reviewed and unremarkable except in HPI and below Const: Denies: fatigue Eyes: Denies: change in vision, blurry vision or eye redness ENMT: Denies: throat pain, swelling of lips/tongue, ear or mastoid pain or nasal congestion Card: Denies: chest pain, palpitations, irregular heart rhythm, edema, dyspnea on exertion or orthopnea Resp: Reports: dyspnea, non-productive cough and wheezing; Denies: productive cough GI: Denies: abdominal pain, diarrhea or GI cramping : Denies: flank pain, urinary frequency or urinary urgency Musc: Denies: neck pain, back pain, extremity pain, joint pain, joint redness, limited range of motion or muscle weakness Skin/Breast: Denies: rash, pruritus, erythema, skin pain or skin tenderness Neuro: Denies: headache(s), numbness in extremities, weakness in extremities, sensory changes, difficulty walking, dizziness, confusion or Slurred speech present Psych: Denies: anxiety or depression Endo: Denies: polyuria All/Imm: Denies: urticaria, throat swelling or tongue swelling PFSH ED PFSH: Medical History (Updated 07/19/20 @ 17:16 by Freddie Hunter MD) Atrial fibrillation Back pain Cataract COPD (chronic obstructive pulmonary disease) Epistaxis not due to trauma Gout Hyperlipidemia Hypertension Prostate cancer Pulmonary embolism Sleep apnea Urinary frequency Surgical History H/O hemorrhoidectomy Hx of tonsillectomy Family History Other Cancer Social History Smoking and tobacco status: former smoker Alcohol intake: former Lives independently: No Household members: caregiver Marital status: / Marital status details: Has a stepson and a son Physical Exam Const: COMMON NORMALS: no acute distress, average body habitus, patient oriented x3, no limitations, healthy appearing, alert and well nourished GENERAL APPEARANCE: cooperative, comfortable, well kempt and well developed ORIENTATION/CONSCIOUSNESS: Yes awake, Yes oriented to person, Yes oriented to place and Yes oriented to time HENMT: COMMON NORMALS: normocephalic, external ears normal and Normal external nose present HEAD & SCALP: normal to inspection and normocephalic NOSE: Normal external nose present EXTERNAL EAR: Yes external ears normal MOUTH: Normal oral and palatal mucosa present THROAT: posterior oropharynx normal Eye: COMMON NORMALS: Equal, round and reactive pupils present and EOMs intact bilaterally GENERAL EYE: appearance normal, both eyes and all related structures PUPIL: Yes Equal, round and reactive pupils present Neck/C-Spine: COMMON NORMALS: full ROM, no lymphadenopathy, no meningeal signs and no JVD GENERAL: Yes normal visual inspection Lymph: LYMPHATIC: no lymphadenopathy noted Chest: COMMONS NORMALS: normal inspection of the chest and normal palpation of entire chest wall Resp: EFFORT & INSPECTION: Yes able to speak in complete sentences, Yes tachypneic and Yes respiratory distress Cardio: COMMON NORMALS: no JVD, regular rate, regular rhythm, S1 normal heart sound present, S2 normal heart sound present and Peripheral pulses 2+ throughout RATE: regular rate RHYTHM: regular rhythm HEART SOUNDS: S1 normal heart sound present and S2 normal heart sound present PERIPHERAL PULSES: Peripheral pulses 2+ throughout GI: COMMON NORMALS: Normal to inspection, nondistended, normoactive bowel sounds present, Soft to palpation, non-tender and no masses INSPECTION: Yes normal to inspection PALPATION: Yes Soft to palpation : COMMON NORMALS: Yes no CVA tenderness BLADDER/KIDNEY EXAM: Yes no CVA tenderness Back/Pelvis: COMMON NORMALS: no CVA tenderness, thoracic and lumbar spine normal to inspection, no thoracic nor lumbar tenderness and thoraco-lumbar ROM normal Extremity: COMMON NORMALS: normal to inspection, full ROM, capillary refill normal, no joint enlargement and no pedal edema GENERAL: Yes normal exam except as noted Neuro: COMMON NORMALS: patient oriented x3, CN's II-XII intact bilaterally, moves all extremities, no focal motor deficits, no sensory deficits noted and gait normal SENSORIUM/ORIENTATION: Yes alert, Yes oriented to person, Yes oriented to place and Yes oriented to time MENINGEAL SIGNS: Yes no meningeal signs Psych: COMMON NORMALS: mental status grossly normal, Normal thought process present, cooperative, normal affect and speech normal APPEARANCE: Yes well kempt ATTITUDE: Yes calm SPEECH: Yes normal speech THOUGHT PROCESS: Normal thought process present Skin: COMMON NORMALS: no rashes or lesions noted GENERAL SKIN EXAM: no rashes or lesions noted Course Vital Signs: Vital signs: Vital Signs Temperature 98.2 F 07/19/20 11:38 Pulse Rate 81 07/19/20 16:55 Respiratory Rate 28 H 07/19/20 16:55 Blood Pressure 146/82 07/19/20 16:55 Pulse Oximetry 95 07/19/20 16:55 MDM - SOB/Dyspnea MDM Narrative: Medical decision making narrative: Patient is an 80-year-old male with past medical history COPD who comes to the ER after an episode of satting 68% on room air. He was started on oxygen and his ABG showed respiratory acidosis and he was placed on BiPAP. His ABG did improve and he was admitted to the ICU under Dr. Carreon Lab Data: Labs: Lab Results 07/19/20 07/19/20 07/19/20 Range/Units 11:06 11:06 11:06 WBC 7.1 (4.0-10.0) 10^3/ uL RBC 4.56 (4.1-5.3) 10^6/u L Hgb 11.5 L (11.7-16.6) g/dL Hct 40.1 L (42.0-52.0) % MCV 87.9 (80-94) fL MCH 25.2 L (28.0-34.0) pg MCHC 28.7 L (30.0-36.0) g/dL RDW 17.9 H (12.1-15.1) % Plt Count 177 (130-400) 10^3/c mm MPV 11.6 H (7.4-10.4) fL Neut % (Auto) 70.7 % Lymph % (Auto) 17.3 % [place] % (Auto) 10.2 % Eos % (Auto) 1.1 % Baso % (Auto) 0.3 % Neut # (Auto) 4.98 (1.8-7.7) 10^3/u L Lymph # (Auto) 1.2 (0.8-4.8) 10^3/u L [place] # (Auto) 0.7 (0.2-0.9) 10^3/u L Eos # (Auto) 0.1 (0.0-0.8) 10^3/u L Baso # (Auto) 0.0 (0.0-0.1) 10^3/u L Nucleated RBC % (a uto) 0 % Nucleated RBCs # 0.0 /100WBC Specimen Type Sample Site ABG pH (7.35-7.45) ABG pCO2 (35-45) mmHg ABG pO2 (80.0-100.0) mmH g ABG HCO3 (22-26) mmol/L ABG O2 Saturation ABG Base Excess (-2.0-2.0) mmol/ L Navjot Test A-a O2 Gradient (5-10) mmHg Hematocrit (42-52) % Hgb O2 Saturation (95-100) % Carboxyhemoglobin (0.4-20.1) %THgb Methemoglobin (0.4-1.5) % Total Hemoglobin (14-18) g/dL Ionized Calcium (1.1-1.4) mmol/L O2 Delivery Device O2 Liters/Min % FiO2 % Supervisor Hot Dip Tinning ID Sodium 138 (136-145) mmol/L Potassium 4.2 (3.5-5.1) mmol/L Chloride 97 L (98-107) mmol/L Carbon Dioxide 34 H (22-29) mmol/L Anion Gap 11.2 (5-19) BUN 22 (8-23) mg/dL Creatinine 0.8 (0.7-1.2) mg/dL GFR Calculation Not Reportable Glucose 131 H (65-115) mg/dL Calculated Osmolal ity 291 (285-295) mOsm/k g Lactate (0.5-2.2) mmol/L Calcium 9.2 (8.5-10.5) mg/dL Total Bilirubin 0.6 (0.15-1.2) mg/dL GGT (8-61) U/L AST 16 (0-40) U/L ALT 12 (0-41) U/L Alkaline Phosphata se 163 H (40-130) IU/L Troponin T Baselin e 26 H (0-15) ng/L NT-Pro-B Natriuret Pep 2072 H (0-450) pg/mL Total Protein 7.2 (6.6-8.7) g/dL Albumin 4.2 (3.5-5.2) g/dL Globulin 3.0 (1.3-4.6) g/dL 07/19/20 07/19/20 07/19/20 Range/Units 11:06 12:05 12:12 WBC (4.0-10.0) 10^3/ uL RBC (4.1-5.3) 10^6/u L Hgb (11.7-16.6) g/dL Hct (42.0-52.0) % MCV (80-94) fL MCH (28.0-34.0) pg MCHC (30.0-36.0) g/dL RDW (12.1-15.1) % Plt Count (130-400) 10^3/c mm MPV (7.4-10.4) fL Neut % (Auto) % Lymph % (Auto) % [place] % (Auto) % Eos % (Auto) % Baso % (Auto) % Neut # (Auto) (1.8-7.7) 10^3/u L Lymph # (Auto) (0.8-4.8) 10^3/u L [place] # (Auto) (0.2-0.9) 10^3/u L Eos # (Auto) (0.0-0.8) 10^3/u L Baso # (Auto) (0.0-0.1) 10^3/u L Nucleated RBC % (a uto) % Nucleated RBCs # /100WBC Specimen Type Arterial Sample Site Radial, right ABG pH 7.27 L (7.35-7.45) ABG pCO2 80.3 H* (35-45) mmHg ABG pO2 46.2 L (80.0-100.0) mmH g ABG HCO3 36.9 H (22-26) mmol/L ABG O2 Saturation 74.6 ABG Base Excess 7.2 H (-2.0-2.0) mmol/ L Navjot Test Pos A-a O2 Gradient 15.2 H (5-10) mmHg Hematocrit 38.5 L (42-52) % Hgb O2 Saturation 72.5 L (95-100) % Carboxyhemoglobin 2.1 (0.4-20.1) %THgb Methemoglobin 0.7 (0.4-1.5) % Total Hemoglobin 12.6 L (14-18) g/dL Ionized Calcium 1.3 (1.1-1.4) mmol/L O2 Delivery Device Nc O2 Liters/Min 4.0 % FiO2 36.0 % Supervisor Hot Dip Tinning ID Cak Sodium 143.0 (136-145) mmol/L Potassium 4.1 (3.5-5.1) mmol/L Chloride (98-107) mmol/L Carbon Dioxide (22-29) mmol/L Anion Gap (5-19) BUN (8-23) mg/dL Creatinine (0.7-1.2) mg/dL GFR Calculation Glucose 135.0 H (65-115) mg/dL Calculated Osmolal ity (285-295) mOsm/k g Lactate 1.1 (0.5-2.2) mmol/L Calcium (8.5-10.5) mg/dL Total Bilirubin (0.15-1.2) mg/dL GGT 29 (8-61) U/L AST (0-40) U/L ALT (0-41) U/L Alkaline Phosphata se (40-130) IU/L Troponin T Baselin e (0-15) ng/L NT-Pro-B Natriuret Pep (0-450) pg/mL Total Protein (6.6-8.7) g/dL Albumin (3.5-5.2) g/dL Globulin (1.3-4.6) g/dL Discharge Plan Discharge Patient Disposition: Admitted As Inpatient Admit Provider: Jayme Carreon Clinical Impression: Acute and chronic respiratory failure, unspecified whether with hypoxia or hypercapnia, Acute exacerbation of chronic obstructive airways disease Condition: Stable Coding Level of Care Code ED 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
[2020-07-19 12:29] LABS: Alanine Aminotransferase 12 U/L (0-41); Albumin Level 4.2 g/dL (3.5-5.2); Alkaline Phosphatase 163 IU/L (40-130); Aspartate Amino Transferase 16 U/L (0-40); Blood Urea Nitrogen 22 mg/dL (8-23); Calcium 9.2 mg/dL (8.5-10.5); Carbon Dioxide 34 mmol/L (22-29); Chloride 97 mmol/L (98-107); Glucose 131 mg/dL (65-115); NT Pro B Type Natriuretic Pept 2072 pg/mL (0-450); Osmolality Calculated 291 mOsm/kg (285-295); Sodium 138 mmol/L (136-145); Total Bilirubin 0.6 mg/dL (0.15-1.2); Total Protein 7.2 g/dL (6.6-8.7)
[2020-07-19 12:32] LABS: Anion Gap 11.2 (5-19); Potassium 4.2 mmol/L (3.5-5.1)
[2020-07-19 12:42] LABS: Lactate (Lactic Acid level) 1.1 mmol/L (0.5-2.2)
--- NOTE | 2020-07-19 13:39 | ECG_ITS ---
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 Measurements Intervals [place] Rate: 70 P: NV: QRS: 26 QRSD: 88 T: 89 QT: 398 QTc: 430 Interpretive Statements ATRIAL FIBRILLATION MODERATE ST DEPRESSION [0.05+ mV ST DEPRESSION] Compared to ECG 07/19/2020 12:01:27 ST (T wave) deviation now present Electronically Signed On 07-20-2020 17:38:07 CDT by Debra Elliott M.D. [id number]
[2020-07-19 13:47] LABS: Troponin 5 2HR 24.49 ng/L (0-15)
[2020-07-19 13:49] LABS: Troponin 5 2HR Delta -1.51 ABS# (0-10)
[2020-07-19 14:02] LABS: Add Urine Microscopic? YES; Bilirubin Urine Neg (Negative); Blood Urine Neg (Negative); Glucose Urine UA Norm (Normal); Ketones Urine Negative (Negative); Leukocyte Esterase Urine Trace (Negative); Nitrate Urine Negative (Negative); Protein Urine Neg (Negative); Specific Gravity, Urine 1.015 (1.005-1.030); Urine Appearance Clear (CLEAR); Urine Color Straw (Yellow); Urobilinogen Urine Norm (Negative); pH Urine 7 (5-7)
[2020-07-19 14:04] LABS: Bacteria Urine 1+ /hpf; Squamous Epithelial Cell Urine 0-4 /hpf (0-5); WBC Urine 0-4 /hpf (0-5)
[2020-07-19 14:05] LABS: Add Urine Culture? No
[2020-07-19 15:00] LABS: ABG PH Result 7.37 (7.35-7.45); Alveolar-Arterial Oxygen Gradi 8.7 mmHg (5-10); Arterial Blood Gas Hematocrit 38.1 % (42-52); Base Excess ABG 10.3 mmol/L (-2.0-2.0); Blood Gas Allen Test Pos; Blood Gas Operator Identificat CAK; Blood Gas Sample Site Radial, right; Blood Gas Sample Type Arterial; HCO3 ABG 38.2 mmol/L (22-26); HGB O2 Sat 90.7 % (95-100); Ionized Calcium Level - ABG 1.2 mmol/L (1.1-1.4); Methemoglobin 0.6 % (0.4-1.5); Oxygen Device BIPAP; Oxygen Saturation ABG 93.2; PO2 ABG 67.4 mmHg (80.0-100.0); Potassium Level - ABG 3.7 mmol/L (3.5-5.0); Total Hemoglobin 12.4 g/dL (14-18)
[2020-07-19 15:01] LABS: ABG PCO2 66.8 mmHg (35-45)
--- NOTE | 2020-07-19 15:10 | P.HP_ITS ---
Providers/Chief Complaint Primary Care Provider: Nyasia Parr NP Chief Complaint: DIFF BREATHING History of Present Illness 80-year-old gentleman with history of COPD, PE, chronic anticoagulation, CHF, atrial fibrillation, sleep apnea, but intolerant of CPAP due to recurrent epistaxis in the past, although since then has undergone ablation procedure with ENT, but also intolerant of noise, a number of other medical problems was brou ght in for evaluation to ER due to progressive shortness of breath by his caregiver. She states he has not been coughing much, although did have an episode of cough yesterday and brought up some phlegm. Denies that this had any particular color to it. She states that apart from shortness of breath, this mild episode of cough, he had had constipation which improved with bowel regimen. Denies that he had vomited. Denies that he had any dysphagia. He had some abdominal discomfort at that time, but this had resolved. He tells me that he has had some chest pain symptoms, but not currently. He denies any hemoptysis. Does not have lower extremity swelling. In ER noted in respiration doses, pH 7.27, CO2 80.3, PO2 46.2, although appears to have been discrepancy between saturation noted on ABG and saturation seen on the monitor, 7 to 0.5% noted on ABG, and the 90s on the monitor initially on 4 L of oxygen, subsequently increased to 6, placed on BiPAP support due to hypercapnia, mild en cephalopathy. Chest x-ray without suggestion of pneumonia he is afebrile, without leukocytosis. Appears to have worsening anemia compared to a year ago, hemoglobin 11.5, platelet count 177. Sodium 138, potassium 4.2, chloride 97, bicarbonate 34. Glucose 131. T bili, AST, ALT normal, alk phos 163. Baseline troponin XX 6, 2-hour troponin 24.49. NT proBNP 2072. Urinalysis with trace leukocyte esterase. He received Solu-Medrol, breathing treatment on the way to the ER. In ER received additional breathing treatment, received 40 mg IV Lasix. History is obtained mostly from his caregiver who is at the bedside. She states that overall his functional capacity has been fluctuating, with decline recently, needing more help with toileting and other activities of daily life. He is able to confirm details of the history. Portion obtained also from his pola Castellano, who is reported to be his power of contracts attorney of healthcare as well. With regards to CODE STATUS, patient reports that he would accept transient intubation if this was necessary, but would not want prolonged mechanical dheeraj tilation or life support especially if futile, and in case of cardiac arrest would not want CPR. Review of Systems Const: Denies: fever(s), chills, body aches or malaise Eyes: Denies: change in vision or eye redness ENMT: Denies: throat pain, oral sores or ear or mastoid pain Card: Reports: chest pain; Denies: edema, pre-syncope or dyspnea on exertion Resp: Reports: dyspnea and productive cough; Denies: change in phlegm color or hemoptysis GI: Denies: abdominal pain, nausea, vomiting, diarrhea, constipation, hematochezia or melena : Denies: flank pain, difficulty urinating, urinary frequency or hematuria Musc: Denies: back pain, joint swelling or joint redness Skin/Breast: Denies: rash, sores or new lesions Neuro: Denies: headache(s), numbness in extremities, weakness in extremities, dizziness, confusion or seizure-like activity Endo: Denies: polyuria or polydipsia Pipo/Lymph: Denies: easy bleeding or purpura All/Imm: Denies: urticaria, throat swelling or tongue swelling Medications/Allergies Home Medications Medication Instructions Recorded Confirmed Last Taken Type [place]opurin[place] [address]/11/19 07/19/20 07/19/20 History atenolol 25 mg PO DAILY@179904/11/19 07/19/20 07/18/20 History atorvastatin 80 mg PO DAILY@179904/11/19 07/19/20 07/18/20 History hydroxyzine HCl 12.5 mg PO BEDTIME@219904/11/19 07/19/20 07/18/20 History lorazepam 0.5 mg PO BEDTIME@219904/11/19 07/19/20 07/18/20 History potassium chloride 10 meq PO DAILY@179904/11/19 07/19/20 07/18/20 History PreserVision AREDS-2 1 tab PO BID@0830,179910/09/19 07/19/20 07/19/20 History aspirin 81 mg PO DAILY@1800 10/09/19 07/19/20 07/18/20 History chlorpheniramine maleate 4 mg PO BID@0830,1800 10/09/19 07/19/20 07/19/20 History [ChlorTabs] amlodipine 5 mg PO DAILY@0830 04/28/20 07/19/20 07/19/20 History venlafaxine 100 mg PO BID@0830,1800 04/28/20 07/19/20 07/19/20 History hydrocodone-acetaminophen 1 tab PO Q4H #30 tab 04/29/20 07/19/20 Unknown Rx Cock Up Splint #1 ea 05/12/20 07/19/20 Unknown Rx Eliquis 5 mg PO BID@0830,1800 07/19/20 07/19/20 07/19/20 History calcium 1 tab PO DAILY@1800 07/19/20 07/19/20 07/18/20 History furosemide 20 mg PO DAILY@0830 07/19/20 07/19/20 Unknown History magnesium oxide 1 tab PO DAILY@1800 07/19/20 07/19/20 07/18/20 History multivitamin 1 tab PO DAILY@1800 07/19/20 07/19/20 07/18/20 History Allergies Allergy/AdvReac Type Severity Reaction Status Date / Time No Known Allergies Allergy Verified 07/07/20 11:05 PFSH Acute PFSH: Medical History (Updated 07/19/20 @ 15:23 by Jayme Carreon MD) Atrial fibrillation Back pain Cataract COPD (chronic obstructive pulmonary disease) Epistaxis not due to trauma Gout Hyperlipidemia Hypertension Prostate cancer Pulmonary embolism Sleep apnea Urinary frequency Surgical History H/O hemorrhoidectomy Hx of tonsillectomy Family History Other Cancer Social History Smoking and tobacco status: former smoker Alcohol intake: former Lives independently: No Household members: caregiver Marital status: / Marital status details: Has a stepson and a son Vitals/I&O/Wt Last Vital Signs Temp 98.2 F 07/19/20 11:38 Pulse 76 07/19/20 14:45 Resp 19 H 07/19/20 14:04 BP 155/87 07/19/20 14:04 Pulse Ox 93 07/19/20 14:45 Weight last 48 hrs Weight 82.554 kg Physical Exam Const: COMMON NORMALS: no acute distress and patient oriented x3 GENERAL APPEARANCE: cooperative and comfortable OTHER: Somnolent, wakes up to voice. Fullface BiPAP mask on. HENMT: COMMON NORMALS: oropharynx normal Neck/C-Spine: COMMON NORMALS: no JVD Resp: COMMON NORMALS: normal respiratory effort AUSCULTATION: diminished lung sounds Cardio: COMMON NORMALS: no JVD, regular rhythm, S1 normal heart sound present, S2 normal heart sound present and No murmurs present (Cardio) RHYTHM: abnormal rhythm irregularly irregular HEART SOUNDS: S1 normal heart sound present and S2 normal heart sound present GI: COMMON NORMALS: Normal to inspection, nondistended, normoactive bowel sounds present, Soft to palpation and non-tender PALPATION: Yes Soft to palpation Extremity: COMMON NORMALS: no joint enlargement and no pedal edema Neuro: COMMON NORMALS: patient oriented x3 and moves all extremities Skin: COMMON NORMALS: no rashes or lesions noted GENERAL SKIN EXAM: no rashes or lesions noted Urinary Catheter Management^: Shoemaker: Cath Placed During This Visit: yes Urinary Catheter Date of Insertion: 07/19/20 Urinary Catheter Time of Insertion: 14:07 Data : 07/19/20 11:06 07/19/20 11:06 A&P Assessment and plan (1) Acute and chronic respiratory failure, unspecified whether with hypoxia or hypercapnia: Multifactorial hypoxic and hypercapnic acute respiratory failure. Has chronic COPD, CHF, although normally does not require supplemental oxygen. Currently with improvement with BiPAP support. On presentation with respiratory acidosis. Continue BiPAP at this time. Continue steroids. Diuretics. Collect sputum c ulture. For now will be monitored in ICU. He is somewhat somnolent secondary to acute encephalopathy due to hypercapnic respiratory failure. We will hold off chlorpheniramine, hold nightly lorazepam. For now only clears for diet until a little bit more awake. Discussed with him, his caregiver and his son. Discussed also history of sleep apnea. Appears has not been tolerant of CPAP in the past. Would benefit from reevaluation by sleep study after acute issues resolve due to concern sleep apnea may contribute to episodes of pulmonary edema. Complete troponin EKG series. Obtain TTE. Discussed also lower possibility of recurrence of PE. She had had PE previously while on warfarin. Currently on Eliquis, and has been taking his medications as per the schedule with assistance of his caregiver. As he is hypoxic we will check COVID-19 antigen. Does not appear to have apart from dyspnea symptoms of headache, no nausea vomiting or diarrhea. No fever, chills, muscle aches. Status: Acute (2) COPD exacerbation: As above. Status: Acute (3) Acute exacerbation of CHF (congestive heart failure): As above. Status: Acute (4) Sleep apnea: If will be willing, refer for repeat sleep study, encourage adherence with CPAP. Previously issues with epistaxis, for which he underwent procedure with ENT for ablation of sphenopalatine artery, but also was intolerant of noise. Status: Acute (5) Alkaline phosphatase elevation: Had some constipation several days ago but otherwise no abdominal pain. Will check GGT. Status: Acute (6) COVID-19 vaccine series completed: Completed both vaccination shots. Status: Acute Additional A&P Information No abnormal troponin: Without significant rise. Reports may have had an episode of chest pain, although caregiver states that this is the first time he had mentioned this. Did have some abdominal discomfort earlier due to constipation. Suspect abnormal troponin secondary to demand ischemia secondary to acute respiratory failure. Complete troponin EKG series. Assess TTE. Monitor symptoms. Decline in functional status: Recently had been requiring more assistance with toileting. Reportedly ambulates with a cane at home. Has been requiring assistance of caregiver. HTN HLD Gout Other chronic medical problems noted. Attestations Medical Necessity Statement*: Admission of over 2 midnights is going to needed for assessment of management of acute respiratory failure with hypoxia and hypercapnia. Coding Level of Care Code Acute Release Engineer for Angelic Gagnon Diagnoses Acute and chronic respiratory failure, unspecified whether with hypoxia or hypercapnia J96.20 COPD exacerbation J44.1 Acute exacerbation of CHF (congestive heart failure) I50.9 Sleep apnea G47.30 Alkaline phosphatase elevation R74.8 COVID-19 vaccine series completed Z92.29
[2020-07-19 16:39] LABS: Gamma Glutamyl Transferase 29 U/L (8-61)
[2020-07-19 17:11] LABS: SARS Covid-2 Antigen Negative (Negative)
[2020-07-19] MEDS: atenolol 50 mg Tablet 25 MG PO (17:31)
[2020-07-19] MEDS: aspirin 81 mg Chew Tablet PO (17:32)
[2020-07-19] MEDS: famotidine 20 mg Tablet PO (17:32)
[2020-07-19] MEDS: apixaban 5 mg Tablet PO (17:32)
[2020-07-19] MEDS: atorvastatin 40 mg Tablet 80 MG PO (17:32)
--- NOTE | 2020-07-19 17:39 | ECG_ITS ---
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 Measurements Intervals [place] Rate: 78 P: DE: QRS: 33 QRSD: 111 T: 80 QT: 399 QTc: 456 Interpretive Statements ATRIAL FIBRILLATION MODERATE INTRAVENTRICULAR CONDUCTION DELAY [110+ ms QRS DURATION] ABNORMAL RHYTHM ECG Compared to ECG 07/19/2020 14:06:32 Intraventricular conduction delay now present ST (T wave) deviation no longer present Electronically Signed On 07-20-2020 9:59:56 CDT by Debra Elliott M.D. [id number]
[2020-07-19 18:05] LABS: Troponin 5 6HR 23.94 ng/L (0-15)
[2020-07-19 18:06] LABS: Troponin 5 6HR Delta -2.06 ng/L (0-12)
--- NOTE | 2020-07-19 19:49 | PC.NURSE ---
Patients son at bedside and requested that if patient required oxygen at discharge, that he would be more compliant with oxygen use if concentrator was quiet and was able to be humidified to prevent nose bleeds for the patient. Continue care.
--- NOTE | 2020-07-19 19:54 | PC.NURSE ---
Patients son voiced to keep patient a full code until power of senior trial attorney and advance directive paperwork in scanned in tomorrow. Continue care.
[2020-07-20] VITALS (67 sets, daily range): BP systolic 105–149; BP diastolic 51–85; PULSE 69–102; RESP 11–39; TEMP 36.7–36.9; O2SAT 81–95
[2020-07-20] MEDS: ipratropium-albuterol 3 mL Neb INHALATION ×4 (02:24→21:05)
--- NOTE | 2020-07-20 06:00 | USCV_ITS ---
Keenan Knight Age: 80 Gender: M : 1940 Exam Date: 07/20/2020 06:03 Ordering Phys: Jayme Carreon MD Technologist: Hina Sharp [place] [facility] [place]ication: CHF AND CHEST PAIN BP: 129 / 69 HR: 73 Rhythm: Sinus Technical Quality: Suboptimal MEASUREMENTS (Male / Female) Normal Values 2D ECHO LV Diastolic Diameter PLAX 4.1 cm 4.2 - 5.9 / 3.9 - 5.3 cm LV Systolic Diameter PLAX 3.0 cm LV Chamber Size 3.8 cm IVS Diastolic Thickness 1.6 cm 0.6 - 1.0 / 0.6 - 0.9 cm IVS Systolic Thickness 2.0 cm LVPW Diastolic Thickness 1.3 cm 0.6 - 1.0 / 0.6 - 0.9 cm LVPW Systolic Thickness 2.0 cm RV Chamber Size 4.1 cm LVOT Diameter 2.0 cm LV Ejection Fraction 2D Teich 52.0 % LV Ejection Fraction MOD 2C 69.1 % LV Ejection Fraction 2C AL 69.9 % LA Diameter 5.4 cm LA Width 3.8 cm LA Height 6.1 cm RA Width 5.6 cm RA Height 7.0 cm Aorta at Sinotubular Diameter 3.9 cm M-MODE LV Diastolic Diameter MM 4.1 cm 4.2 - 5.9 / 3.9 - 5.3 cm LV Systolic Diameter MM 3.4 cm LV Ejection Fraction MM Teich 36.9 % IVS Diastolic Thickness MM 1.4 cm 0.6 - 1.0 / 0.6 - 0.9 cm IVS Systolic Thickness MM 1.3 cm LVPW Diastolic Thickness MM 1.6 cm 0.6 - 1.0 / 0.6 - 0.9 cm LVPW Systolic Thickness MM 1.9 cm RV Diastolic Diameter MM 1.8 cm Aortic Annulus Diameter 3.8 cm LA Ao Ratio MM 1.7 MV E Point Septal Separation 0.1 cm DOPPLER AV Peak Velocity 182.0 cm/s LVOT Peak Velocity 98.7 cm/s AV Area Cont Eq vti 1.9 cm squared AV Area Cont Eq pk 1.7 cm squared MV Area PHT 5.1 cm squared MV E' Velocity 60.0 cm/s Mitral E to MV E' Ratio 8.0 Mitral E to LV E' Lateral Ratio 8.1 Mitral E to LV E' Septal Ratio 8.0 TR Peak Velocity 271.0 cm/s TR Peak Gradient 29.4 mmHg TR Mean Velocity 196.4 cm/s TR Mean Gradient 17.6 mmHg TR Velocity Time Integral 76.0 cm TV Peak E Velocity 84.0 cm/s Right Atrial Pressure 3.0 mmHg Pulmonary Artery Systolic Pressu 32.4 mmHg PV Peak Velocity 60.0 cm/s RV Acceleration Time 0.2 s RV Ejection Time 0.4 s RV AcT/ET 0.5 FINDINGS Left Ventricle Normal left ventricular cavity size with mildly increased left ventricle wall thickness. Normal left ventricular systolic function. Left ventricular ejection fraction is estimated at 60 %. Although no diagnostic regional wall motion abnormality could be identified, this possibility cannot be completely excluded based on the study. Abnormal diastolic function. Right Ventricle Normal right ventricular size and systolic function. Right ventricular systolic pressure 32.4 mmHg. Right Atrium Mildly increased right atrial size. Left Atrium Moderately increased left atrial size. Mitral Valve Mildly thickened mitral valve. No mitral valve stenosis. Trace mitral valve regurgitation. Aortic Valve Mildly thickened trileaflet aortic valve. Mild aortic valve stenosis, peak velocity 1.8 m/s, peak gradient 13 mmHg, mean gradient 7 mmHg, JORDEN 1.7 cm squared. No aortic valve regurgitation. Tricuspid Valve Structurally normal tricuspid valve. No tricuspid valve stenosis. Trace tricuspid valve regurgitation. Pulmonic Valve Pulmonic valve not well visualized. Pericardium No pericardial effusion. Aorta Normal size aortic root and proximal ascending aorta. CONCLUSIONS 1. This is a technically difficult study. 2. Normal left ventricular cavity size with mildly increased left ventricle wall thickness. Normal left ventricular systolic function. Left ventricular ejection fraction is estimated at 60 %. Although no diagnostic regional wall motion abnormality could be identified, this possibility cannot be completely excluded based on the study. Abnormal diastolic function. 3. Normal right ventricular size and systolic function. 4. Mild aortic valve stenosis, peak velocity 1.8 m/s, peak gradient 13 mmHg, mean gradient 7 mmHg, JORDEN 1.7 cm squared. 5. Moderately increased left atrial size. 6. Direct comparison to previous study is not possible given technically difficult study. Debra Elliott MD (Electronically Signed) Final Date: 20 Jul 2020 17:22 S
[2020-07-20 06:16] LABS: Basophils % 0.1 %; Hemoglobin 10.9 g/dL (11.7-16.6); Lymphocytes # 0.5 10^3/uL (0.8-4.8); Lymphocytes % 6.5 %; Mean Corpuscular HGB Conc 29.5 g/dL (30.0-36.0); Mean Corpuscular Hemoglobin 25.2 pg (28.0-34.0); Mean Corpuscular Volume 85.5 fL (80-94); Mean Platelet Volume 11.5 fL (7.4-10.4); Monocytes # 0.3 10^3/uL (0.2-0.9); Monocytes % 3.7 %; Neutrophils # 7.02 10^3/uL (1.8-7.7); Neutrophils % 88.8 %; Nucleated Red Blood Cells % 0 %; Platelet Count 149 10^3/cmm (130-400); Red Blood Count 4.33 10^6/uL (4.1-5.3); Red Cell Distribution Width 17.5 % (12.1-15.1); White Blood Count 7.9 10^3/uL (4.0-10.0)
--- NOTE | 2020-07-20 06:25 | PC.NURSE ---
Patient was awake all night, tolerated NC oxygenation well. Watched TV and ate snacks since diet order was changed to advance as tolerated. Continue care.
[2020-07-20 06:38] LABS: Alanine Aminotransferase 12 U/L (0-41); Albumin Level 3.9 g/dL (3.5-5.2); Alkaline Phosphatase 148 IU/L (40-130); Anion Gap 11.4 (5-19); Aspartate Amino Transferase 13 U/L (0-40); Blood Urea Nitrogen 27 mg/dL (8-23); Carbon Dioxide 35 mmol/L (22-29); Chloride 94 mmol/L (98-107); Globulin 2.9 g/dL (1.3-4.6); Glucose 223 mg/dL (65-115); Osmolality Calculated 296 mOsm/kg (285-295); Potassium 3.4 mmol/L (3.5-5.1); Sodium 137 mmol/L (136-145); Total Bilirubin 0.5 mg/dL (0.15-1.2); Total Protein 6.8 g/dL (6.6-8.7)
[2020-07-20] MEDS: FUROsemide 10 mg/mL SDV 4mL 40 MG IVP (07:28)
--- NOTE | 2020-07-20 07:45 | XRR_ITS ---
PROCEDURE INFORMATION: Exam: XR Chest Exam date and time: 07/20/2020 7:49 AM Age: 80 years old Clinical indication: Other: Hypoxia TECHNIQUE: Imaging protocol: XR of the chest. Views: 1 view. COMPARISON: CR XR chest 1V portable [id number] 07/19/2020 11:49 AM FINDINGS: Lungs: Retrocardiac minor interstitial opacities of lower lungs favoring atelectasis or scarring. Mildly accentuated interstitium which could be on the basis of mild interstitial vascular congestion. Pleural spaces: Unremarkable. No pleural effusion. No pneumothorax. Heart/Mediastinum: Cardiac enlargement. Bones/joints: Degenerative changes of thoracic spine. XR/XR chest 1V portable [id number] IMPRESSION: 1. Cardiac enlargement. 2. Question borderline or low-grade pulmonary venous congestion. 3. Minor scarring or atelectasis retrocardiac lower lungs.
[2020-07-20] MEDS: potassium chloride ER 20 mEq Tablet PO (07:53)
[2020-07-20] MEDS: famotidine 20 mg Tablet PO ×2 (07:53→18:24)
[2020-07-20] MEDS: allopurinol 300 mg Tablet PO (07:53)
[2020-07-20] MEDS: apixaban 5 mg Tablet PO ×2 (07:53→18:20)
--- NOTE | 2020-07-20 08:21 | P.PN_ITS ---
Subjective Subjective: Interval history: Today he is feeling better. He is awake, alert, states he could not sleep at night, however. But otherwise states he is doing well apart from the nasal cannula oxygen keeps falling out of his nose. He denies chest pain or pressure. He had 2 episodes of cough overnight. She has not really tried to lay flat on his back as he was not sleeping. Vitals/I&O/Wt Last Vital Signs Temp 98.2 F 07/19/20 11:38 Pulse 72 07/20/20 06:00 Resp 24 H 07/20/20 04:40 BP 129/69 07/20/20 04:40 Pulse Ox 81 L 07/20/20 04:40 07/19/20 07/20/20 07/20/20 22:59 06:59 14:59 Intake Total 440 / 440 240 / 680 Output Total 2500 / 2500 625 / 3125 Balance -2059 / -2059 -385 / -2445 Weight last 48 hrs Weight 131.23 kg Weight 82.554 kg Physical Exam Const: COMMON NORMALS: no acute distress, patient oriented x3 and alert GENERAL APPEARANCE: cooperative and comfortable ORIENTATION/CONSCIOUSNESS: Yes awake OTHER: NC down over the top of his mouth HENMT: COMMON NORMALS: oropharynx normal Neck/C-Spine: COMMON NORMALS: no JVD Resp: COMMON NORMALS: normal respiratory effort AUSCULTATION: diminished l rosibel sounds Cardio: COMMON NORMALS: no JVD, regular rhythm, S1 normal heart sound present, S2 normal heart sound present and No murmurs present (Cardio) RHYTHM: regular rhythm and abnormal rhythm irregularly irregular HEART SOUNDS: S1 normal heart sound present and S2 normal heart sound present GI: COMMON NORMALS: Normal to inspection, nondistended, normoactive bowel sounds present, Soft to palpation and non-tender PALPATION: Yes Soft to palpation Extremity: COMMON NORMALS: no joint enlargement GENERAL: Yes edema (trace) Neuro: COMMON NORMALS: patient oriented x3 and moves all extremities SENSORIUM/ORIENTATION: Yes alert Skin: COMMON NORMALS: no rashes or lesions noted GENERAL SKIN EXAM: no rashes or lesions noted Urinary Catheter Management^: Shoemaker: Cath Placed During This Visit: yes Reason for Continuing Indwelling Catheter: Accurate Measurement of Urinary Output in Critically Ill Patients Urinary Catheter Date of Insertion: 07/19/20 Urinary Catheter Time of Insertion: 14:07 Data : 07/20/20 04:44 07/20/20 04:44 A&P Assessment and plan (1) Acute and chronic respiratory failure, unspecified whether with hypoxia or hypercapnia: Persistent hypoxia, this morning saturations appear to be as low as low 80s on 3 L nasal cannula, although appears that he was having trouble keeping it in as well. Currently on 4 L. Helped him readjust cannula. As hypoxia persists this morning we will repeat chest x-ray. Follow-up TTE. For now reduce Lasix frequency for CHF to every 24 hours due to rising BUN. Monitor ABIMBOLA, renal function. Is in negative balance -2.5 L since yesterday. Follow-up sputum culture. Rapid COVID-19 is negative. Continue steroid, breathing treatments for COPD exacerbation. BiPAP as needed Possibility of PE is rather lower given he has not missed any Eliquis, has no tachycardia, no chest pain/hemoptysis. Acute encephalopathy resolved. Resume cardiac diet. Has also history of sleep apnea. Appears has not been tolerant of CPAP in the past. Would benefit from reevaluation by sleep study after acute issues resolve due to concern sleep apnea may contribute to episodes of pulmonary edema. Can move out of ICU. Status: Acute (2) COPD exacerbation: As above. Status: Acute (3) Acute exacerbation of CHF (congestive heart failure): As above. Status: Acute (4) Sleep apnea: If will be willing, refer for repeat sleep study, encourage adherence with CPAP. Previously issues with epistaxis, for which he underwent procedure with ENT for ablation of sphenopalatine artery, but also was intolerant of noise. Status: Acute (5) Alkaline phosphatase elevation: Had some constipation several days ago but otherwise no abdominal pain. Normal GGT. Status: Acute (6) COVID-19 vaccine series completed: Completed both vaccination shots. Status: Acute Additional A&P Information Abnormal troponin: Troponin elevation without significant peak. Denies chest pain. Follow-up TTE. Suspected demand ischemia secondary to respiratory failure. Decline in functional status: Recently had been requiring more assistance with toileting. Reportedly ambulates with a cane at home. Has been requiring assistance of caregiver. Obtain PT/OT assessment. HTN HLD Gout Other chronic medical problems noted. Attestations Medical Necessity Statement*: Continue admission for assessment of management of acute respiratory failure with hypoxia and hypercapnia. Coding Level of Care Code Acute Geological Technical Officer for Chg Fwd Diagnoses Acute and chronic respiratory failure, unspecified whether with hypoxia or hypercapnia J96.20 COPD exacerbation J44.1 Acute exacerbation of CHF (congestive heart failure) I50.9 Sleep apnea G47.30 Alkaline phosphatase elevation R74.8 COVID-19 vaccine series completed Z92.29
[2020-07-20] MEDS: atenolol 50 mg Tablet 25 MG PO (18:17)
[2020-07-20] MEDS: atorvastatin 40 mg Tablet 80 MG PO (18:17)
[2020-07-20] MEDS: aspirin 81 mg Chew Tablet PO (18:19)
[2020-07-21] VITALS (19 sets, daily range): BP systolic 124–158; BP diastolic 68–83; PULSE 69–91; RESP 16–24; TEMP 36.3–37.1; O2SAT 91–98; BMI 31.8
[2020-07-21] MEDS: ipratropium-albuterol 3 mL Neb INHALATION ×4 (03:28→20:19)
[2020-07-21 07:26] LABS: Basophils % 0.2 %; Hematocrit 40.9 % (42.0-52.0); Hemoglobin 12.1 g/dL (11.7-16.6); Lymphocytes # 0.8 10^3/uL (0.8-4.8); Mean Corpuscular HGB Conc 29.6 g/dL (30.0-36.0); Mean Corpuscular Hemoglobin 25.3 pg (28.0-34.0); Mean Corpuscular Volume 85.4 fL (80-94); Mean Platelet Volume 11.3 fL (7.4-10.4); Monocytes # 0.5 10^3/uL (0.2-0.9); Monocytes % 3.9 %; Neutrophils # 11.48 10^3/uL (1.8-7.7); Neutrophils % 89.2 %; Nucleated Red Blood Cells % 0 %; Platelet Count 185 10^3/cmm (130-400); Red Blood Count 4.79 10^6/uL (4.1-5.3); Red Cell Distribution Width 18.1 % (12.1-15.1); White Blood Count 12.9 10^3/uL (4.0-10.0)
[2020-07-21 08:02] LABS: Alanine Aminotransferase 14 U/L (0-41); Albumin Level 3.7 g/dL (3.5-5.2); Alkaline Phosphatase 141 IU/L (40-130); Blood Urea Nitrogen 32 mg/dL (8-23); Calcium 8.9 mg/dL (8.5-10.5); Carbon Dioxide 32 mmol/L (22-29); Chloride 94 mmol/L (98-107); Globulin 3.4 g/dL (1.3-4.6); Glucose 147 mg/dL (65-115); Osmolality Calculated 290 mOsm/kg (285-295); Sodium 135 mmol/L (136-145); Total Bilirubin 0.6 mg/dL (0.15-1.2); Total Protein 7.1 g/dL (6.6-8.7)
[2020-07-21 08:15] LABS: Aspartate Amino Transferase 26 U/L (0-40)
[2020-07-21] MEDS: allopurinol 300 mg Tablet PO (08:54)
[2020-07-21] MEDS: famotidine 20 mg Tablet PO ×2 (08:54→17:24)
[2020-07-21] MEDS: FUROsemide 10 mg/mL SDV 4mL 40 MG IVP (08:54)
[2020-07-21] MEDS: apixaban 5 mg Tablet PO ×2 (08:54→17:27)
[2020-07-21] MEDS: perflutren protein-a microsphr 0.22 mg/mL SDV 3 mL IV (10:20)
--- NOTE | 2020-07-21 10:32 | PC.NUTR ---
Nutrition note: Pt screened at risk for low BMI based upon admission weight of 182 lbs, however wt appears to be in error. Wt of 275 lbs documented 07/21/20. Spoke with pt who also states 182 is incorrect. Not at risk due to low BMI at this time, will follow per policy.
[2020-07-21 10:56] LABS: Glucose Point of Care 257 mg/dL (70-110)
[2020-07-21] MEDS: aspirin 81 mg Chew Tablet PO (17:24)
[2020-07-21] MEDS: atorvastatin 40 mg Tablet 80 MG PO (17:24)
[2020-07-21] MEDS: atenolol 50 mg Tablet 25 MG PO (17:24)
--- NOTE | 2020-07-21 17:26 | USCV_ITS ---
Keenan Knight Age: 80 Gender: M : 1940 Exam Date: 07/21/2020 10:35 Ordering Phys: Technologist: JOSE [place]am [place] [facility] [place] [facility] [place] Indication: LV FUNCTION BP: 158 / 82 HR: 78 Rhythm: Sinus Technical Quality: Good MEASUREMENTS (Male / Female) Normal Values 2D ECHO LV Ejection Fraction MOD 2C 51.8 % LV Ejection Fraction 2C AL 52.9 % FINDINGS Left Ventricle Right Ventricle Right Atrium Left Atrium Mitral Valve Aortic Valve Tricuspid Valve Pulmonic Valve Pericardium Aorta CONCLUSIONS 1. This is a limited echo with [employer]. 2. Normal left ventricular size and systolic function. Left ventricular ejection fraction estimated at 65-70%. No regional wall motion abnormalities. 3. Normal right ventricular size and systolic function. Debra Elliott MD (Electronically Signed) Final Date: 23 Jul 2020 18:30 S
[2020-07-21] MEDS: b-complex-vitamin c Tablet 1 EACH PO (18:18)
--- NOTE | 2020-07-21 18:49 | PC.RESP ---
Pulmonary Rehab information sent to patient.
--- NOTE | 2020-07-21 21:18 | P.PN_ITS ---
Subjective Subjective: Interval history: Overall he is feeling much better. He is breathing easier, coughing much less, cannot even bring up more phlegm. Denies chest pain or pressure. He is still requiring 3 L of oxygen, however. Hematuria, mild, is improving. Vitals/I&O/Wt Last Vital Signs Temp 98.3 F 07/21/20 19:20 Pulse 90 07/21/20 19:29 Resp 17 07/21/20 19:26 BP 133/75 07/21/20 19:20 Pulse Ox 94 07/21/20 19:26 07/21/20 07/21/20 07/21/20 06:59 14:59 22:59 Intake Total 1440 / 1440 980 / 2420 Output Total 1050 / 2425 720 / 720 900 / 1620 Balance -1050 / -1405 720 / 720 80 / 800 Weight last 48 hrs Weight 124.738 kg Weight 131.23 kg Physical Exam Narrative: EXAM NARRATIVE: His stepson is at bedside. Const: COMMON NORMALS: no acute distress, patient oriented x3 and alert GENERAL APPEARANCE: cooperative and comfortable ORIENTATION/CONSCIOUSNESS: Yes awake OTHER: NC HENMT: COMMON NORMALS: oropharynx normal Neck/C-Spine: COMMON NORMALS: no JVD Resp: COMMON NORMALS: normal respiratory effort AUSCULTATION: diminished lung sounds (With improvement) Cardio: COMMON NORMALS: no JVD, regular rhythm, S1 normal heart sound present, S2 normal heart sound present and No murmurs present (Cardio) RHYTHM: regular rhythm and abnormal rhythm irregularly irregular HEART SOUNDS: S1 normal heart sound present and S2 normal heart sound present GI: COMMON NORMALS: Normal to inspection, nondistended, normoactive bowel sounds present, Soft to palpation and non-tender PALPATION: Yes Soft to palpation Extremity: COMMON NORMALS: no joint enlargement GENERAL: No edema Neuro: COMMON NORMALS: patient oriented x3 and moves all extremities SENSORIUM/ORIENTATION: Yes alert Skin: COMMON NORMALS: no rashes or lesions noted GENERAL SKIN EXAM: no rashes or lesions noted Urinary Catheter Management^: Shoemaker: Cath Placed During This Visit: yes Reason for Continuing Indwelling Catheter: Accurate Measurement of Urinary Output in Critically Ill Patients Urinary Catheter Date of Insertion: 07/19/20 Urinary Catheter Time of Insertion: 14:07 Data : 07/21/20 05:51 07/21/20 05:51 Micro: Microbiology 07/21/20 14:00 Gram Stain - Final Sputum - Expectorated Sputum A&P Assessment and plan (1) Acute and chronic respiratory failure, unspecified whether with hypoxia or hypercapnia: Overall improving, although persistence of hypoxia. Still requiring 3 L of oxygen. His son reports that he has needed oxygen several times in the past, but did not tolerated due to noise, as well as previously due to recurrent epistaxis. Overall he feels he is pretty close to his baseline. For today we will continue additionally with diuretic, continue with treatment of COPD, however, if remains stable, continues to do well, consideration may be for discharge home. Will need to be set up with oxygen on discharge. His son would like to discuss with discharge planning/oxygen company regarding possibilities to have equipment which is not noisy and allows for hu midification. Oxygen requirement is gradually improving. He is weaned off BiPAP requirement. Discussed with him and his son results of TTE. Follow-up sputum culture. Rapid COVID-19 is negative. Continue steroid, breathing treatments for COPD exacerbation. Possibility of PE is rather lower given he has not missed any Eliquis, has no tachycardia, no chest pain/hemoptysis. Acute encephalopathy resolved. Resume cardiac diet. Has also history of sleep apnea. Appears has not been tolerant of CPAP in the past. Would benefit from reevaluation by sleep study after acute issues resolve due to concern sleep apnea may contribute to episodes of pulmonary edema. Can move out of ICU. Status: Acute (2) COPD exacerbation: As above. Status: Acute (3) Acute exacerbation of CHF (congestive heart failure): As above. Status: Acute (4) Sleep apnea: If will be willing, refer for repeat sleep study, encourage adherence with CPAP. Previously issues with epistaxis, for which he underwent procedure with ENT for ablation of sphenopalatine artery, but also was intolerant of noise. Status: Acute (5) Alkaline phosphatase elevation: Had some constipation several days ago but otherwise no abdominal pain. Normal GGT. Will need additional outpatient follow-up. Status: Acute (6) COVID-19 vaccine series completed: Completed both vaccination shots. Status: Acute (7) Hematuria: Noted mild hematuria, although reportedly was worse yesterday. Currently improving. On anticoagulation. Shoemaker in place. Will request UA. Status: Acute Additional A&P Information Abnormal troponin: Troponin elevation without significant peak. Denies chest pain. Follow-up TTE. Suspected demand ischemia secondary to respiratory failure. Macular degeneration: His son is going to bring his vitamins into the hospital. He will continue follow-up with his dairy specialist after discharge. Decline in functional status: Recently had been requiring more assistance with toileting. Reportedly ambulates with a cane at home. Has been requiring assistance of caregiver. PT/OT assessment. HTN HLD Gout Other chronic medical problems noted. Attestations Medical Necessity Statement*: Continue admission for assessment management of hypoxic respiratory failure, CHF exacerbation, COPD exacerbation. Coding Level of Care Code Acute Construction Person for [facility] Fwd Diagnoses Acute and chronic respiratory failure, unspecified whether with hypoxia or h ypercapnia J96.20 COPD exacerbation J44.1 Acute exacerbation of CHF (congestive heart failure) I50.9 Sleep apnea G47.30 Alkaline phosphatase elevation R74.8 COVID-19 vaccine series completed Z92.29 Hematuria R31.9
[2020-07-22] VITALS (12 sets, daily range): BP systolic 126–150; BP diastolic 71–81; PULSE 72–99; RESP 18–20; TEMP 36.6–37.1; O2SAT 87–95; BMI 32.1
[2020-07-22] MEDS: ipratropium-albuterol 3 mL Neb INHALATION ×3 (02:27→15:21)
[2020-07-22 06:06] LABS: Basophils % 0.1 %; Hematocrit 40.4 % (42.0-52.0); Hemoglobin 12.1 g/dL (11.7-16.6); Lymphocytes # 0.5 10^3/uL (0.8-4.8); Lymphocytes % 5.5 %; Mean Corpuscular Hemoglobin 24.9 pg (28.0-34.0); Mean Corpuscular Volume 83.1 fL (80-94); Mean Platelet Volume 10.7 fL (7.4-10.4); Monocytes # 0.5 10^3/uL (0.2-0.9); Monocytes % 5.6 %; Neutrophils # 8.51 10^3/uL (1.8-7.7); Neutrophils % 88.1 %; Nucleated Red Blood Cells % 0.2 %; Platelet Count 193 10^3/cmm (130-400); Red Blood Count 4.86 10^6/uL (4.1-5.3); Red Cell Distribution Width 17.6 % (12.1-15.1); White Blood Count 9.7 10^3/uL (4.0-10.0)
[2020-07-22 06:18] LABS: Alanine Aminotransferase 24 U/L (0-41); Albumin Level 3.7 g/dL (3.5-5.2); Alkaline Phosphatase 134 IU/L (40-130); Anion Gap 11.5 (5-19); Aspartate Amino Transferase 25 U/L (0-40); Blood Urea Nitrogen 35 mg/dL (8-23); Calcium 8.5 mg/dL (8.5-10.5); Carbon Dioxide 35 mmol/L (22-29); Chloride 93 mmol/L (98-107); Globulin 3.1 g/dL (1.3-4.6); Glucose 192 mg/dL (65-115); Osmolality Calculated 295 mOsm/kg (285-295); Potassium 3.5 mmol/L (3.5-5.1); Sodium 136 mmol/L (136-145); Total Bilirubin 0.5 mg/dL (0.15-1.2); Total Protein 6.8 g/dL (6.6-8.7)
[2020-07-22] MEDS: b-complex-vitamin c Tablet 1 EACH PO (08:33)
[2020-07-22] MEDS: apixaban 5 mg Tablet PO (08:33)
[2020-07-22] MEDS: allopurinol 300 mg Tablet PO (08:33)
[2020-07-22] MEDS: famotidine 20 mg Tablet PO (08:33)
[2020-07-22] MEDS: FUROsemide 10 mg/mL SDV 4mL 40 MG IVP (08:34)
--- NOTE | 2020-07-22 09:28 | PC.SOCIAL ---
IMM Update Pg. 2 of IMM updated and reviewed with patient, who verbalized understanding. Copy provided.
--- NOTE | 2020-07-22 11:18 | PC.OT ---
OT TREATMENT ATTEMPTED. PATIENT IS VISITING WITH FAMILY AND REQUESTS P.M. TREATMENT.
--- NOTE | 2020-07-22 22:00 | P.DS_ITS ---
Discharge Providers Date of Admission: 07/19/20 13:05 Date of Discharge: July 22, 2020 Attending Provider at Admission: Jayme Carreon Attending Provider at Discharge: Jayme Carreon Primary Care Provider: Nyasia Parr NP Diagnoses at Discharge Discharge Diagnosis (1) Acute and chronic respiratory failure, unspecified whether with hypoxia or hypercapnia: Status: Acute (2) COPD exacerbation: Status: Acute (3) Acute exacerbation of CHF (congestive heart failure): Status: Acute (4) Sleep apnea: Status: Acute (5) Alkaline phosphatase elevation: Status: Acute (6) COVID-19 vaccine series completed: Status: Acute (7) Hematuria: Status: Acute Reason for Visit Reason for Visit: DIFF BREATHING Hospital Course Hospital Course Pleasant 80-year-old gentleman with history of COPD, PE, chronic anti coagulation, CHF, atrial fibrillation, sleep apnea, but intolerant of CPAP due to recurrent epistaxis in the past, although since then has undergone ablation procedure with ENT, but also intolerant of noise, a number of other medical problems was admitted and treated after presenting with acute on chronic respiratory failure with hypoxia and hypercapnia, with hypercapnic encephalopathy, respiratory acidosis, requiring BiPAP support, with acute diastolic congestive heart failure exacerbation, with untreated sleep apnea, was admitted to ICU, treated with steroids, breathing treatments for COPD e xacerbation, diuretic for CHF. Troponin abnormality on presentation but without significant rise, without chest pain suspected secondary to demand ischemia. Chest x-ray on presentation without acute findings. NT proBNP elevated at 2071. He was additionally assessed by echocardiography with finding of normal EF, abnormal diastolic function, mild AVS, moderately increased LA size. No RWMA. As per his son he had required being set up with oxygen supplementation on at least 2 separate occasions, however, did not tolerate oxygen due to noise from the machine, as well as at the time recurrent epistaxis episodes for which she has since undergone treatment with ENT. With treatment in the hospital his condition overall gradually improved. He was feeling much better compared to admission. Weaned off BiPAP support. With improving oxygenation and decreased oxygen requirement, although still requiring 3 L oxygen at rest. He diuresed well, and appears to be close to baseline weight. With improved air entry, resolved wheezing on exam. At discharge she is provided with prednisone taper, is started on Ventolin, Spiriva. He is continued on diuretic. Due to hypercapnia presentation he is asked to avoid sedating medications especially before bedtime. He is referred for follow-up evaluation by sleep study. In case of additional respiratory issues, consider referral to pulmonology for additional assessment. Due to incidentally noted elevation of alkaline phosphatase while in the hospital, which although due to recent wrist fracture could be secondary to this, with history of prostate cancer he is additionally referred for assessment by bone scan. Please follow-up results discussed with him at subsequent appointment. Transient hematuria noted in the hospital, possibly secondary to Shoemaker catheter, however, please reassess for resolution of hematuria. Physical Exam Narrative: EXAM NARRATIVE: His stepson is at bedside. Const: COMMON NORMALS: no acute distress, patient oriented x3 and alert GENERAL APPEARANCE: cooperative and comfortable ORIENTATION/CONSCIOUSNESS: Yes awake OTHER: NC He reports he is feeling very well. Back to his baseline. Eager to return home. HENMT: COMMON NORMALS: oropharynx normal Neck/C-Spine: COMMON NORMALS: no JVD Resp: COMMON NORMALS: normal respiratory effort and clear to auscultation bilaterally AUSCULTATION: clear to auscultation bilaterally Cardio: COMMON NORMALS: no JVD, regular rhythm, S1 normal heart sound present, S2 normal heart sound present and No murmurs present (Cardio) RHYTHM: regular rhythm and abnormal rhythm irregularly irregular HEART SOUNDS: S1 normal heart sound present and S2 normal heart sound present GI: COMMON NORMALS: Normal to inspection, nondistended, normoactive bowel sounds present, Soft to palpation and non-tender PALPATION: Yes Soft to palpation Extremity: COMMON NORMALS: no joint enlargement and no pedal edema Neuro: COMMON NORMALS: patient oriented x3 and moves all extremities SENSORIUM/ORIENTATION: Yes alert Skin: COMMON NORMALS: no rashes or lesions noted GENERAL SKIN EXAM: no rashes or lesions noted Urinary Catheter Management^: Shoemaker: Cath Placed During This Visit: yes Reason for Continuing Indwelling Catheter: Accurate Measurement of Urinary Output in Critically Ill Patients Urinary Catheter Date of Insertion: 07/19/20 Urinary Catheter Time of Insertion: 14:07 Discharge Data Data Completed and Pending: Completed Studies During Hospitalization Category Date Time Status XR chest 1V gee ble [id number] Routine Exams 07/20/20 07:45 Completed XR chest 1V gee ble [id number] Urgent Exams 07/19/20 11:37 Completed CV echo complete* [id number] Routine Ultrasound 07/20/20 06:00 Completed US/CV paperwork R outine Ultrasound 07/21/20 Completed Pending at discharge Category Date Time Status Sputum Culture an d Gram Stain Routi ne Lab 07/20/20 08:30 Results Urinalysis Routin e Lab 07/21/20 21:19 Ordered CV echo lmt wo/w contras [id number] Rout ine Ultrasound 07/21/20 17:26 Taken Labs from last 24 hours 07/22/20 07/22/20 05:05 05:05 WBC 9.7 RBC 4.86 Hgb 12.1 Hct 40.4 L MCV 83.1 MCH 24.9 L MCHC 30.0 RDW 17.6 H Plt Count 193 MPV 10.7 H Neut % (Auto) 88.1 Lymph % (Auto) 5.5 [place] % (Auto) 5.6 Eos % (Auto) 0.0 Baso % (Auto) 0.1 Neut # (Auto) 8.51 H Lymph # (Auto) 0.5 L [place] # (Auto) 0.5 Eos # (Auto) 0.0 Baso # (Auto) 0.0 Nucleated RBC % (a uto) 0.2 Nucleated RBCs # 0.0 Sodium 136 Potassium 3.5 Chloride 93 L Carbon Dioxide 35 H Anion Gap 11.5 BUN 35 H Creatinine 0.9 GFR Calculation Not Reportable Glucose 192 H Calculated Osmolal ity 295 Calcium 8.5 Total Bilirubin 0.5 AST 25 ALT 24 Alkaline Phosphata se 134 H Total Protein 6.8 Albumin 3.7 Globulin 3.1 Vitals: Last Vital Signs Temp 98.8 F 07/22/20 18:24 Pulse 99 07/22/20 18:24 Resp 18 07/22/20 18:24 BP 145/71 07/22/20 18:24 Pulse Ox 94 07/22/20 18:24 Discharge Plan Discharge Patient Disposition: Home Health Service Condition: Stable Prescriptions: New Spiriva Respimat 2.5 mcg/actuation mist 5 mcg inhalation DAILY Qty: 4 RF: 0 Ventolin HFA 90 mcg/actuation HFA aerosol inhaler 2 inh inhalation QID Qty: 8.5 RF: 0 prednisone 10 mg tablet See Rx Instructions .ROUTE .COMPLEX Qty: 20 RF: 0 Continued atorvastatin 80 mg tablet 80 mg PO DAILY@1800 RF: 0 allopurinol 300 mg tablet 300 mg PO 0830 RF: 0 atenolol 50 mg tablet 25 mg PO DAILY@1800 RF: 0 potassium chloride 10 mEq tablet,ER particles/crystals 10 meq PO DAILY@1800 RF: 0 aspirin 81 mg Tablet,Chewable 81 mg PO DAILY@1800 RF: 0 PreserVision AREDS-2 [id number] be-ggll-vu-mg Capsule 1 tab PO BID@0830,1800 RF: 0 venlafaxine 100 mg Tablet 100 mg PO BID@0830,1800 RF: 0 hydrocodone-acetaminophen 5-325 mg tablet 1 tab PO Q4H Qty: 30 RF: 0 calcium 1 tab PO DAILY@1800 RF: 0 magnesium oxide 1 tab PO DAILY@1800 RF: 0 multivitamin 1 tab PO DAILY@1800 RF: 0 Eliquis 5 mg tablet 5 mg PO BID@0830,1800 RF: 0 Changed furosemide 40 mg tablet 40 mg PO DAILY@0830 Qty: 14 RF: 0 amlodipine 5 mg Tablet 5 mg PO DAILY@0830 PRN (Reason: Blood Pressure) Qty: 0 RF: 0 Discontinued lorazepam 0.5 mg tablet 0.5 mg PO BEDTIME@2199 RF: 0 hydroxyzine HCl 25 mg tablet 12.5 mg PO BEDTIME@2199 RF: 0 chlorpheniramine maleate [ChlorTabs] 4 mg Tablet 4 mg PO BID@0830,1800 RF: 0 No Action (DME) Cock Up Splint See Rx Instructions .ROUTE .MEDSUPPLY Qty: 1 RF: 0 Discharge Orders: Discharge Order (Routine); Ordered 07/22/20 Ordered By: Jayme Carreon Other Ambulatory Orders: NM bone scan whole body* [id number] (Routine) Timeframe: 1 Week Facility: [facility] - Location: Radiology Ordered By: Jayme Carreon DME: Oxygen (Order) Location: None Selected Ordered By: Jayme Carreon DME: Walker (Order) Location: None Selected Ordered By: Jayme Carreon Sleep Study/Titration (Routine) Timeframe: 4 Days Location: None Selected Ordered By: Jayme Carreon Referrals: Nyasia Parr NP [Primary Care Provider] - 07/27/20 10:00 am Discharge Diet: Cardiac Discharge Activity: Increase activity as tolerated, As per PT/OT instructions and Oxygen as instructed Patient Instructions: Prednisone (By mouth), Tiotropium (By breathing), Hematuria - Male, Heart Failure (GEN), Sleep Apnea Syndrome (GEN), Chronic Obstructive Pulmonary Disease (GEN), Hypoxia (GEN), Opioid Safety, Using Oxygen at Home Activity Restrictions/Additional Instructions: Please follow-up with your primary care doctor to reassess volume status, and adjust dose of Lasix. Please discuss regarding heart failure, COPD with exacerbation. Please avoid sedating medications at night like lorazepam, hydroxyzine, etc., as these may cause oversedation and lead to accumulation of carbon dioxide due to inadequate respirations similar to how they were on admission to the hospital. Please complete sleep study and discuss with your primary care doctor. Consider referral to lung specialist. Please discuss with your primary care doctor repeating urine studies to make sure small amount of blood in your urine had resolved. Please discuss also with your primary care doctor regarding results of the bone scan. You are referred for this test due to abnormality of alkaline phosphatase which persists and with reported history of prostate to exclude any other sources of alkaline phosphatase apart from wrist fracture. Please resume follow-up with your eye doctor. Please be safe with oxygen, avoid any sources of fire or spark. Discharge Attestations Time Spent in Discharge Care*: greater than 30 min Quality Metrics Clinical Quality Measures During this hospital stay, did patient experience: None Coding Level of Care Code Acute g FW RI note Diagnoses Acute and chronic respiratory failure, unspecified whether with hypoxia or hypercapnia J96.20 COPD exacerbation J44.1 Acute exacerbation of CHF (congestive heart failure) I50.9 Sleep apnea G47.30 Alkaline phosphatase elevation R74.8 COVID-19 vaccine series completed Z92.29 Hematuria R31.9
== END 2020-07-22 17:30 | disposition home health service (06) | DRG 189 ==
LOC: ER 14:24 → ICU 16:00 → MEDSURG 07-20 10:46
PROVIDERS: Admitting Provider Internal Medicine; Emergency Provider Family Medicine; PCP Nurse Practitioner Family; Visit Provider Internal Medicine
DX: J96.22 Acute and chronic respiratory failure with hypercapnia (principal); I50.33 Acute on chronic diastolic (congestive) heart failure; J44.1 Chronic obstructive pulmonary disease with (acute) exacerbation; G93.49 Other encephalopathy; E87.2 Acidosis; I24.8 Other forms of acute ischemic heart disease; J96.21 Acute and chronic respiratory failure with hypoxia; Z86.711 Personal history of pulmonary embolism; I11.0 Hypertensive heart disease with heart failure; I48.91 Unspecified atrial fibrillation; G47.30 Sleep apnea, unspecified; D64.9 Anemia, unspecified; M54.9 Dorsalgia, unspecified; M10.9 Gout, unspecified; E78.5 Hyperlipidemia, unspecified; Z85.46 Personal history of malignant neoplasm of prostate; Z87.891 Personal history of nicotine dependence; R74.8 Abnormal levels of other serum enzymes; K59.00 Constipation, unspecified; Z79.01 Long term (current) use of anticoagulants; Z79.82 Long term (current) use of aspirin; H35.30 Unspecified macular degeneration; R31.9 Hematuria, unspecified
CPT/HCPCS: 36415; 36416; 36600; 51702; 71045; 80051; 80053; 81001; 82330; 82805; 82962; 82977; 83605; 83880; 84484; 85025; 87070; 87205; 87426; 93005; 93306; 94640; 94660; 94664; 96374; 97110; 97116; 97162; 97166; 97530; 99285; C8924; J1940; J2930; Q9956

== ENCOUNTER 2020-08-04 09:38 | Emergency (ER) | payer MEDICARE, SELFPAY ==
[2020-08-04 09:48] VITALS: BP 119/76; PULSE 65; RESP 15; TEMP 36.4; O2SAT 100; BMI 31.1
--- NOTE | 2020-08-04 09:53 | XR_ITS ---
WS: [id number] Exam: XR chest 1V portable [id number] Date/Time of Exam: 08/04/2020 9:58 AM Reason For Exam: chest pain Comparison 07/20/2020. The lungs are fully expanded and clear. No pleural effusions. The heart is enlarged but unchanged in size. The mediastinum and osseous thorax are unremarkable. There may be a small diaphragmatic hernia on the left. XR/XR chest 1V portable [id number] IMPRESSION: 1. Cardiac enlargement unchanged. No acute cardiopulmonary finding.
--- NOTE | 2020-08-04 09:54 | ECG_ITS ---
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 Measurements Intervals [place] Rate: 64 P: TN: QRS: 41 QRSD: 82 T: 66 QT: 403 QTc: 417 Interpretive Statements ATRIAL FIBRILLATION Compared to ECG 07/19/2020 18:02:09 Intraventricular conduction delay no longer present Electronically Signed On 08-04-2020 17:35:10 CDT by Kevin Fierro M.D. [email or web address]
[2020-08-04 10:03] LABS: Basophils % 0.3 %; Eosinophils # 0.1 10^3/uL (0.0-0.8); Eosinophils % 1.8 %; Hematocrit 43.4 % (42.0-52.0); Hemoglobin 13.2 g/dL (11.7-16.6); Lymphocytes # 1.1 10^3/uL (0.8-4.8); Lymphocytes % 17.6 %; Mean Corpuscular HGB Conc 30.4 g/dL (30.0-36.0); Mean Corpuscular Hemoglobin 25.3 pg (28.0-34.0); Mean Corpuscular Volume 83.1 fL (80-94); Mean Platelet Volume 10.7 fL (7.4-10.4); Monocytes # 0.6 10^3/uL (0.2-0.9); Monocytes % 8.6 %; Neutrophils # 4.63 10^3/uL (1.8-7.7); Neutrophils % 71.4 %; Nucleated Red Blood Cells % 0 %; Platelet Count 127 10^3/cmm (130-400); Red Blood Count 5.22 10^6/uL (4.1-5.3); Red Cell Distribution Width 16.3 % (12.1-15.1); White Blood Count 6.5 10^3/uL (4.0-10.0)
--- NOTE | 2020-08-04 10:13 | ED_ITS ---
HPI - Chest Pain General: Chief Complaint: Chest Pain Stated Complaint: Chest Pain Time Seen by Provider: 08/04/20 09:40 History of Present Illness: HPI narrative: 80-year-old male presents emergency room complaining of chest discomfort. He has a history of COPD hypertension congestive heart failure and atrial fibrillation. Morning of chest pain that started while at rest. He denies any radiation he has been short of breath with it. No fever productive cough. MD complaint: chest heaviness Pertinent past history: coronary artery disease and other (COPD) Onset (ago): minute(s) Timing of current episode: episodic Prior episodes: Yes Onset: during rest Pain location: left chest Pain radiation: none Severity: mild Quality: heaviness Relieving factors: nothing Exacerbating factors: nothing Associated symptoms: Deny abdominal pain, diaphoresis, dyspnea, fever(s), leg edema, nausea, palpitations, sense of impending doom, syncope or vomiting Review of Systems Const: Denies: fever(s) or diaphoresis ENMT: Denies: throat pain, ear or mastoid pain, nasal discharge or nasal congestion Card: Denies: palpitations or syncope Resp: Denies: dyspnea GI: Denies: abdominal pain, nausea or vomiting : Denies: flank pain, dysuria, urinary frequency or urinary urgency Skin/Breast: Denies: rash or pruritus PFSH ED PFSH: Medical History Atrial fibrillation Back pain Cataract COPD (chronic obstructive pulmonary disease) COVID-19 vaccine series completed Epistaxis not due to trauma Gout Hyperlipidemia Hypertension Prostate cancer Pulmonary embolism Sleep apnea Urinary frequency Surgical History H/O hemorrhoidectomy Hx of tonsillectomy Family History Other Cancer Social History Smoking and tobacco status: former smoker Alcohol intake: former Lives independently: No Household members: caregiver Marital status: / Marital status details: Has a stepson and a son Physical Exam Const: COMMON NORMALS: no acute distress GENERAL APPEARANCE: cooperative and comfortable ORIENTATION/CONSCIOUSNESS: Yes awake, Yes oriented to person, Yes oriented to place and Yes oriented to time Neck/C-Spine: COMMON NORMALS: no JVD Resp: COMMON NORMALS: normal respiratory effort, No retractions, No use of ac cessory muscles and clear to auscultation bilaterally AUSCULTATION: clear to auscultation bilaterally Cardio: COMMON NORMALS: no JVD, regular rate, regular rhythm and No murmurs present (Cardio) RATE: regular rate RHYTHM: regular rhythm GI: COMMON NORMALS: Soft to palpation and No hepatosplenomegaly present AUSCULTATION: Yes normoactive bowel sounds PALPATION: Yes Soft to palpation, No Tenderness to palpation present (GI), No Guarding due to palpation present (GI) and Yes No hepatosplenomegaly present Extremity: COMMON NORMALS: normal to inspection, capillary refill normal, no clubbing, cyanosis or edema, no calf tenderness and no pedal edema Neuro: SENSORIUM/ORIENTATION: Yes oriented to person, Yes oriented to place and Yes oriented to time Skin: COMMON NORMALS: no rashes or lesions noted GENERAL SKIN EXAM: no rashes or lesions noted Course Vital Signs: Vital signs: Vital Signs Temperature 97.5 F L 08/04/20 09:48 Pulse Rate 66 08/04/20 14:11 Respiratory Rate 18 08/04/20 14:11 Blood Pressure 122/60 08/04/20 14:11 Pulse Oximetry 100 08/04/20 14:11 MDM - Chest Pain MDM Narrative: Medical decision making narrative: Patient feeling much better is no longer requiring any oxygen. We will go ahead and discharge home serial troponins negative we will set him up for a Lexiscan sestamibi stress test r eturn if has further problems. He did mention he was having some intermittent productive cough we will add doxycycline also put on Medrol Dosepak add isosorbide mononitrate as well return if his problems. Lab Data: Labs: Lab Results 08/04/20 08/04/20 08/04/20 Range/Units 09:54 09:54 09:54 WBC 6.5 (4.0-10.0) 10^3/ uL RBC 5.22 (4.1-5.3) 10^6/u L Hgb 13.2 (11.7-16.6) g/dL Hct 43.4 (42.0-52.0) % MCV 83.1 (80-94) fL MCH 25.3 L (28.0-34.0) pg MCHC 30.4 (30.0-36.0) g/dL RDW 16.3 H (12.1-15.1) % Plt Count 127 L (130-400) 10^3/c mm MPV 10.7 H (7.4-10.4) fL Neut % (Auto) 71.4 % Lymph % (Auto) 17.6 % [place] % (Auto) 8.6 % Eos % (Auto) 1.8 % Baso % (Auto) 0.3 % Neut # (Auto) 4.63 (1.8-7.7) 10^3/u L Lymph # (Auto) 1.1 (0.8-4.8) 10^3/u L [place] # (Auto) 0.6 (0.2-0.9) 10^3/u L Eos # (Auto) 0.1 (0.0-0.8) 10^3/u L Baso # (Auto) 0.0 (0.0-0.1) 10^3/u L Nucleated RBC % (a uto) 0 % Nucleated RBCs # 0.0 /100WBC Specimen Type Sample Site ABG pH (7.35-7.45) ABG pCO2 (35-45) mmHg ABG pO2 (80.0-100.0) mmH g ABG HCO3 (22-26) mmol/L ABG O2 Saturation ABG Base Excess (-2.0-2.0) mmol/ L Navjot Test A-a O2 Gradient (5-10) mmHg Hematocrit (42-52) % Hgb O2 Saturation (95-100) % Carboxyhemoglobin (0.4-20.1) %THgb Methemoglobin (0.4-1.5) % Total Hemoglobin (14-18) g/dL Ionized Calcium (1.1-1.4) mmol/L O2 Delivery Device O2 Liters/Min % FiO2 % [employer] ID Sodium 138 (136-145) mmol/L Potassium 4.4 (3.5-5.1) mmol/L Chloride 96 L (98-107) mmol/L Carbon Dioxide 33 H (22-29) mmol/L Anion Gap 13.4 (5-19) BUN 12 (8-23) mg/dL Creatinine 1.0 (0.7-1.2) mg/dL GFR Calculation Not Reportable Glucose 155 H (65-115) mg/dL Calculated Osmolal ity 289 (285-295) mOsm/k g Calcium 8.6 (8.5-10.5) mg/dL Total Bilirubin 0.5 (0.15-1.2) mg/dL AST 20 (0-40) U/L ALT 35 (0-41) U/L Alkaline Phosphata se 127 (40-130) IU/L Troponin T Baselin e 40 H (0-15) ng/L Troponin T 120 Min [place] (0-15) ng/L Delta Troponin T (0-10) ABS# Total Protein 5.5 L (6.6-8.7) g/dL Albumin 3.8 (3.5-5.2) g/dL Globulin 1.7 (1.3-4.6) g/dL 08/04/20 08/04/20 Range/Units 10:21 12:10 WBC (4.0-10.0) 10^3/ uL RBC (4.1-5.3) 10^6/u L Hgb (11.7-16.6) g/dL Hct (42.0-52.0) % MCV (80-94) fL MCH (28.0-34.0) pg MCHC (30.0-36.0) g/dL RDW (12.1-15.1) % Plt Count (130-400) 10^3/c mm MPV (7.4-10.4) fL Neut % (Auto) % Lymph % (Auto) % [place] % (Auto) % Eos % (Auto) % Baso % (Auto) % Neut # (Auto) (1.8-7.7) 10^3/u L Lymph # (Auto) (0.8-4.8) 10^3/u L [place] # (Auto) (0.2-0.9) 10^3/u L Eos # (Auto) (0.0-0.8) 10^3/u L Baso # (Auto) (0.0-0.1) 10^3/u L Nucleated RBC % (a uto) % Nucleated RBCs # /100WBC Specimen Type Arterial Sample Site Radial, left ABG pH 7.42 (7.35-7.45) ABG pCO2 56.2 H (35-45) mmHg ABG pO2 100.0 (80.0-100.0) mmH g ABG HCO3 36.3 H (22-26) mmol/L ABG O2 Saturation 98.7 ABG Base Excess 9.9 H (-2.0-2.0) mmol/ L Navjot Test Pos A-a O2 Gradient 7.8 (5-10) mmHg Hematocrit 39.8 L (42-52) % Hgb O2 Saturation 96.8 (95-100) % Carboxyhemoglobin 1.1 (0.4-20.1) %THgb Methemoglobin 0.8 (0.4-1.5) % Total Hemoglobin 13.0 L (14-18) g/dL Ionized Calcium 1.2 (1.1-1.4) mmol/L O2 Delivery Device Nc O2 Liters/Min 3.0 % FiO2 32.0 % [employer] ID Cak Sodium 136.0 (136-145) mmol/L Potassium 4.1 (3.5-5.1) mmol/L Chloride (98-107) mmol/L Carbon Dioxide (22-29) mmol/L Anion Gap (5-19) BUN (8-23) mg/dL Creatinine (0.7-1.2) mg/dL GFR Calculation Glucose 134.0 H (65-115) mg/dL Calculated Osmolal ity (285-295) mOsm/k g Calcium (8.5-10.5) mg/dL Total Bilirubin (0.15-1.2) mg/dL AST (0-40) U/L ALT (0-41) U/L Alkaline Phosphata se (40-130) IU/L Troponin T Baselin e (0-15) ng/L Troponin T 120 Min [place] 32.55 H (0-15) ng/L Delta Troponin T -7.45 L (0-10) ABS# Total Protein (6.6-8.7) g/dL Albumin (3.5-5.2) g/dL Globulin (1.3-4.6) g/dL EKG Data^: EKG 1: EKG interpretation date: 08/04/20 EKG interpretation time: 10:33 Other EKG comments: Rate of 64 atrial fibrillation QT interval [address] changes noted EKG 2: EKG interpretation date: 08/04/20 EKG interpretation time: 12:15 Prior EKG tracings: available for review Other EKG comments: Atrial fibrillation rate of 64. QT [address] changes noted some artifact at baseline. Discharge Plan Discharge Patient Disposition: Home Clinical Impression: COPD exacerbation Condition: Stable Prescriptions: New isosorbide mononitrate 30 mg tablet extended release 24 hr 30 mg PO DAILY Qty: 30 RF: 0 doxycycline hyclate 100 mg capsule 100 mg PO BID 10 Days Qty: 20 RF: 0 Medrol (Isaiah) 4 mg tablets,dose pack See Rx Instructions .ROUTE .COMPLEX Qty: 21 RF: 0 albuterol sulfate 90 mcg/actuation HFA aerosol inhaler 2 inh INHALATION Q4H PRN (Reason: shortness of breath or wheezing) Qty: 18 RF: 0 No Action atorvastatin 80 mg tablet 80 mg PO DAILY@1800 RF: 0 allopurinol 300 mg tablet 300 mg PO DAILY@0830 RF: 0 atenolol 50 mg tablet 50 mg PO DAILY@1800 RF: 0 potassium chloride 10 mEq tablet,ER particles/crystals 10 meq PO DAILY@1800 RF: 0 aspirin 81 mg Tablet,Chewable 81 mg PO DAILY@1800 RF: 0 PreserVision AREDS-2 [id number] fc-hdxw-dg-mg Capsule 1 tab PO BID@0830,1800 RF: 0 venlafaxine 75 mg tablet 75 mg PO BID@0830,1800 RF: 0 hydroxyzine HCl 25 mg tablet 50 mg PO DAILY@0830 RF: 0 nitrofurantoin monohyd/m-cryst 100 mg capsule 100 mg PO BID RF: 0 Ventolin HFA 90 mcg/actuation HFA aerosol inhaler 2 inh inhalation QID PRN (Reason: Shortness Of Breath) RF: 0 calcium 1 tab PO DAILY@1800 RF: 0 magnesium oxide 1 tab PO DAILY@1800 RF: 0 multivitamin 1 tab PO DAILY@1800 RF: 0 Eliquis 5 mg tablet 5 mg PO BID@0830,1800 RF: 0 Spiriva Respimat 2.5 mcg/actuation mist 5 mcg inhalation DAILY Qty: 4 RF: 0 furosemide 40 mg tablet 40 mg PO DAILY@0830 Qty: 14 RF: 0 amlodipine 5 mg Tablet 5 mg PO DAILY@0830 PRN (Reason: Blood Pressure) Qty: 0 RF: 0 Discharge Orders: Discharge ED (Routine); Ordered 08/04/20 Ordered By: Michael Gamboa Referrals: Nyasia Parr NP [Primary Care Provider] - Patient Instructions: Opioid Safety Activity Restrictions/Additional Instructions: Up with your primary care doctor tomorrow. Return if you have further problems. Case management will call to set you up for a stress test. Coding Level of Care Code ED [employer] for Chg Fwd Exam Detailed
[2020-08-04 10:19] LABS: Troponin(5th) Baseline 40 ng/L (0-15)
[2020-08-04 10:21] LABS: Alanine Aminotransferase 35 U/L (0-41); Albumin Level 3.8 g/dL (3.5-5.2); Alkaline Phosphatase 127 IU/L (40-130); Aspartate Amino Transferase 20 U/L (0-40); Blood Urea Nitrogen 12 mg/dL (8-23); Calcium 8.6 mg/dL (8.5-10.5); Carbon Dioxide 33 mmol/L (22-29); Chloride 96 mmol/L (98-107); Globulin 1.7 g/dL (1.3-4.6); Glucose 155 mg/dL (65-115); Osmolality Calculated 289 mOsm/kg (285-295); Sodium 138 mmol/L (136-145); Total Bilirubin 0.5 mg/dL (0.15-1.2); Total Protein 5.5 g/dL (6.6-8.7)
[2020-08-04 10:23] LABS: Anion Gap 13.4 (5-19); Potassium 4.4 mmol/L (3.5-5.1)
[2020-08-04 10:33] LABS: ABG PCO2 56.2 mmHg (35-45); ABG PH Result 7.42 (7.35-7.45); Alveolar-Arterial Oxygen Gradi 7.8 mmHg (5-10); Arterial Blood Gas Hematocrit 39.8 % (42-52); Base Excess ABG 9.9 mmol/L (-2.0-2.0); Blood Gas Allen Test Pos; Blood Gas Operator Identificat CAK; Blood Gas Sample Site Radial, left; Blood Gas Sample Type Arterial; Carboxyhemoglobin 1.1 %THgb (0.4-20.1); HCO3 ABG 36.3 mmol/L (22-26); HGB O2 Sat 96.8 % (95-100); Ionized Calcium Level - ABG 1.2 mmol/L (1.1-1.4); Methemoglobin 0.8 % (0.4-1.5); Oxygen Device NC; Oxygen Saturation ABG 98.7; Potassium Level - ABG 4.1 mmol/L (3.5-5.0)
--- NOTE | 2020-08-04 11:54 | ECG_ITS ---
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 Measurements Intervals [place] Rate: 64 P: SC: QRS: 47 QRSD: 89 T: 68 QT: 410 QTc: 425 Interpretive Statements ATRIAL FIBRILLATION Compared to ECG 08/04/2020 10:33:57 No significant changes Electronically Signed On 08-04-2020 17:45:00 CDT by Kevin Fierro M.D. [email or web address] [email or web address] [email or web address]/[id number]
[2020-08-04 12:48] LABS: Troponin 5 2HR 32.55 ng/L (0-15)
[2020-08-04 12:54] VITALS: BP 134/74; PULSE 67; RESP 18; O2SAT 100
[2020-08-04 12:59] LABS: Troponin 5 2HR Delta -7.45 ABS# (0-10)
[2020-08-04 13:00] VITALS: PULSE 65; RESP 18; O2SAT 92
[2020-08-04 14:11] VITALS: BP 122/60; PULSE 66; RESP 18; O2SAT 100
--- NOTE | 2020-08-05 11:52 | DCPLANNER ---
senior facilities manager had message to schedule an out patient stress test for patient. senior facilities manager faxed signed order to centralized scheduling for a stress test. senior facilities manager will call for appointment information.
--- NOTE | 2020-08-26 12:05 | DCPLANNER ---
Patient has a follow up appointment scheduled for Sunday, September 15, 2020 at 10:45.
--- NOTE | 2020-10-28 11:28 | DCPLANNER ---
Patient had a follow up appointment scheduled for 09.15.20 for an out patient stress test - appointment was cancelled.
== END 2020-08-04 14:12 | disposition home or self-care (01) ==
PROVIDERS: Emergency Provider Family Medicine; PCP Nurse Practitioner Family
DX: J44.1 Chronic obstructive pulmonary disease with (acute) exacerbation (principal); Z79.01 Long term (current) use of anticoagulants; Z79.82 Long term (current) use of aspirin; I48.91 Unspecified atrial fibrillation; E78.5 Hyperlipidemia, unspecified; I10 Essential (primary) hypertension; Z85.46 Personal history of malignant neoplasm of prostate; Z87.891 Personal history of nicotine dependence
CPT/HCPCS: 36415; 36600; 71045; 80051; 80053; 82330; 82805; 84484; 85025; 93005; 99284

== ENCOUNTER 2020-09-27 20:01 | Outpatient (CLI) | payer MEDICARE, SELFPAY ==
[2020-09-27 20:53] LABS: Anion Gap 16.3 (5-19); Blood Urea Nitrogen 16 mg/dL (8-23); Calcium 8.8 mg/dL (8.5-10.5); Carbon Dioxide 28 mmol/L (22-29); Chloride 98 mmol/L (98-107); Glucose 111 mg/dL (65-115); Osmolality Calculated 288 mOsm/kg (285-295); Potassium 4.3 mmol/L (3.5-5.1); Sodium 138 mmol/L (136-145)
== END 2020-09-27 20:02 | disposition home or self-care (01) ==
LOC: LAB 20:11
PROVIDERS: PCP Nurse Practitioner Family; Visit Provider Family Medicine
DX: I50.9 Heart failure, unspecified (principal)
CPT/HCPCS: 80048

== ENCOUNTER 2020-10-07 17:40 | Outpatient (CLI) | payer MEDICARE, SELFPAY ==
[2020-10-07 20:14] LABS: NT Pro B Type Natriuretic Pept 798 pg/mL (0-450)
== END 2020-10-07 17:41 | disposition home or self-care (01) ==
PROVIDERS: PCP Nurse Practitioner Family; Visit Provider Family Medicine
DX: I50.9 Heart failure, unspecified (principal)
CPT/HCPCS: 83880

== ENCOUNTER 2020-11-12 09:44 | Emergency (ER) | payer OTHER, SELFPAY ==
--- NOTE | 2020-11-12 10:49 | ECG_ITS ---
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
--- NOTE | 2020-11-12 10:49 | CT_ITS ---
WS: [id number] CT ABDOMEN AND PELVIS WITH CONTRAST HISTORY: Generalized abdominal pain for 2 days. TECHNIQUE: Imaging performed of the abdomen and pelvis with IV contrast. Single phase imaging of the abdomen. Coronal and sagittal reformats are submitted. All CT scans at [facility] use at [facility] [address] one of these dose optimization techniques: automated exposure control; mA and/or kV adjustment per patient size (includes targeted exams where dose is matched to clinical indication); or iterative re construction. IV CONTRAST: Omnipaque 300; 95 mL IV. Oral contrast: No DLP: 1981.38 mGy.cm COMPARISON: 08/26/2012 Lower thorax: Mild dependent changes at the lung bases. Areas of subsegmental atelectasis and mild gr oundglass attenuation. Moderate enlargement the heart. No pericardial effusion. No hiatal hernia. Liver/biliary system: Moderate enlargement with mildly coarsened echotexture. No bile duct dilatation or mass. Portal vein is patent. Gallbladder: Normal. No gallstones or wall thickening. No pericholecystic fluid. Pancreas: Normal size pancreas and pancreatic duct. No adjacent inflammation. Spleen: Normal size spleen. No mass or infarct. Adrenal glands: Normal. Right kidney: Moderate perinephric stranding. Very minimal dilatation of the RIGHT renal pelvis. Uret er is tortuous and dilated to the urinary bladder. No obstructing stone or mass identified. Left kidney: Mild perinephric stranding and mild to moderate hydronephrosis and mild dilatation of th e ureter. Ureter is tortuous and dilated to the bladder. No obstructing stone or mass appreciated. Aorta: Moderate atherosclerosis with no aneurysm. Lymphadenopathy: None. Free fluid: None. GI tract: Unremarkable. Abdominal wall: Fat containing umbilical hernia. Pelvis: Moderate distention of the bladder extends over a length extending centimeters. This may be t he cause of the renal obstruction. No mass identified within the urinary bladder. No free fluid or ad enopathy within the pelvis. Prostate gland is small caliber and contains prostate seeds from prior ra diation. Bones: Advanced lumbar spondylosis. No acute appearing fractures. Bilateral degenerative joint diseas e at the hips. CT/CT abdomen pelvis w con* [id number] IMPRESSION: 1. Mild RIGHT and mild to moderate LEFT hydroureteronephrosis. No obstructing stone or mass identified. The obstruction may be due to an overly distended uri nary bladder from bladder outlet obstruction. Consider Shoemaker catheterization of the bladder. 2. Mild cardiomegaly. 3. Prior prostate carcinoma.
[2020-11-12 10:54] VITALS: BP 98/65; PULSE 119; RESP 20; TEMP 36.6; O2SAT 91; BMI 33.0
--- NOTE | 2020-11-12 13:13 | PC.NURSE ---
Assumed care of patient at 1248.
[2020-11-12 13:14] VITALS: BP 135/91; PULSE 70; RESP 18; TEMP 36.6; O2SAT 95
[2020-11-12 13:32] VITALS: BP 109/72; PULSE 70; RESP 18; TEMP 36.6; O2SAT 95
[2020-11-12 13:34] LABS: Basophils % 0.3 %; Eosinophils # 0.3 10^3/uL (0.0-0.8); Eosinophils % 3.6 %; Hemoglobin 12.7 g/dL (11.7-16.6); Lymphocytes # 2.1 10^3/uL (0.8-4.8); Lymphocytes % 30.7 %; Mean Corpuscular Volume 87.2 fl (80-94); Mean Platelet Volume 10.1 fL (7.4-10.4); Monocytes # 0.7 10^3/uL (0.2-0.9); Monocytes % 10.4 %; Neutrophils # 3.79 10^3/uL (1.8-7.7); Neutrophils % 54.7 %; Nucleated Red Blood Cells % 0 %; Platelet Count 199 10^3/cmm (130-400); Red Cell Distribution Width 15.7 % (12.1-15.1); White Blood Count 6.9 10^3/uL (4.0-10.0)
--- NOTE | 2020-11-12 13:35 | PC.PHAR ---
pts family verified the pts medications-pts family states the pt hasnt used his spiriva respimat since july-
[2020-11-12 13:57] LABS: Alanine Aminotransferase 15 U/L (0-41); Alkaline Phosphatase 161 IU/L (40-130); Blood Urea Nitrogen 13 mg/dL (8-23); Calcium 9.4 mg/dL (8.5-10.5); Carbon Dioxide 29 mmol/L (22-29); Chloride 96 mmol/L (98-107); Globulin 2.8 g/dL (1.3-4.6); Glucose 99 mg/dL (65-115); Lipase 30 U/L (13-60); Osmolality Calculated 286 mOsm/kg (285-295); Sodium 138 mmol/L (136-145); Total Bilirubin 0.4 mg/dL (0.15-1.2); Total Protein 6.8 g/dL (6.6-8.7)
[2020-11-12 14:12] LABS: Anion Gap 17.5 (5-19); Aspartate Amino Transferase 23 U/L (0-40); Potassium 4.5 mmol/L (3.5-5.1)
[2020-11-12 14:13] LABS: Bilirubin Urine Neg (Negative); Blood Urine Neg (Negative); Glucose Urine UA Norm (Normal); Ketones Urine Negative (Negative); Nitrate Urine Negative (Negative); Protein Urine Neg (Negative); Specific Gravity, Urine 1.005 (1.005-1.030); Urine Appearance Hazy (CLEAR); Urine Color Yellow (Yellow); Urobilinogen Urine Norm (Negative); pH Urine 7 (5-7)
[2020-11-12 14:14] LABS: Add Urine Microscopic? YES; Leukocyte Esterase Urine 2+ (Negative)
[2020-11-12 14:15] LABS: Add Urine Culture? Yes; Bacteria Urine TRACE /hpf; RBC Urine 0-4 /hpf (0-2); Squamous Epithelial Cell Urine 0-4 /hpf (0-5); WBC Urine TOO NUMEROUS TO CNT /hpf (0-5)
[2020-11-12] MEDS: iohexol 300 mg/mL 100 mL Btl IV (14:17)
--- NOTE | 2020-11-12 14:21 | ED_ITS ---
HPI - Abdominal Pain General: Chief Complaint: Abdominal Pain Stated Complaint: abdoman pain,possible blockage per dr. ji Time Seen by Provider: 11/12/20 10:02 History of Present Illness: HPI narrative: 80-year-old male presents to the emergency room with complaints of abdominal pain and distention. Patient reports bloating and discomfort in the abdomen since October 20 he continues to have small bowel movements he denies any fever no hematochezia melena hematemesis or coffee-ground emesis denies dysuria urgency or frequency. Patient is on hospice for congestive heart failure and COPD. No change in respiratory symptoms he is chronically short of breath he only uses oxygen at night with his CPAP MD elicited complaint: abdominal pain Onset (ago): week(s) Pain Consistency: intermittent and colicky Location: Periumbilical Severity: moderate Quality: cramping Radiation: none Migration to: no migration Exacerbating factors: nothing Relieving factors: nothing Associated Symptoms: Reports anorexia, bloating and GI cramping; Denies belching, change in bowel habits, change in stool character, chills, coffee ground emesis, constipation, diarrhea, dyspepsia, dysuria, excessive flatus, fever(s), heartburn, hematochezia, hematuria, hematemesis, fecal incontinence, loose stools, melena, nausea, poor appetite, syncope and vomiting Review of Systems Const: Denies: fever(s) or chills ENMT: Denies: throat pain, ear or mastoid pain, nasal discharge or nasal congestion Card: Denies: syncope Resp: Denies: dyspnea, productive cough or non-productive cough GI: Reports: bloating and GI cramping; Denies: nausea, vomiting, hematemesis, coffee ground emesis, heartburn, diarrhea, constipation, belching, excessive flatus, fecal incontinence, change in bowel habits, change in stool character, hematochezia or melena : Denies: dysuria or hematuria Skin/Breast: Denies: rash or pruritus PFSH ED PFSH: Medical History Atrial fibrillation Back pain Cataract COPD (chronic obstructive pulmonary disease) COVID-19 vaccine series completed Epistaxis not due to trauma Gout Hyperlipidemia Hypertension Prostate cancer Pulmonary embolism Sleep apnea Urinary frequency Surgical History H/O hemorrhoidectomy Hx of tonsillectomy Family History Other Cancer Social History Smoking and tobacco status: former smoker Alcohol intake: former Lives independently: No Household members: caregiver Marital status: / Marital status details: Has a stepson and a son Physical Exam Const: COMMON NORMALS: no acute distress GENERAL APPEARANCE: cooperative and comfortable ORIENTATION/CONSCIOUSNESS: Yes awake, Yes oriented to person, Yes oriented to place and Yes oriented to time HENMT: COMMON NORMALS: normocephalic, atraumatic and hearing grossly normal bilaterally HEAD & SCALP: normocephalic and atraumatic Neck/C-Spine: COMMON NORMALS: no JVD Lymph: LYMPHATIC: no lymphadenopathy noted and no lymphedema noted Resp: COMMON NORMALS: normal respiratory effort, No retractions, No use of accessory muscles and clear to auscultation bilaterally AUSCULTATION: clear to auscultation bilaterally Cardio: COMMON NORMALS: no JVD, regular rate, regular rhythm and No murmurs present (Cardio) RATE: regular rate RHYTHM: regular rhythm GI: COMMON NORMALS: No hepatosplenomegaly present AUSCULTATION: Yes normoactive bowel sounds PALPATION: Yes Tenderness to palpation present (GI) (Suprapubic), No Guarding due to palpation present (GI) and Yes No hepatosplenomegaly present Extremity: COMMON NORMALS: normal to inspection, capillary refill normal, no clubbing, cyanosis or edema, no calf tenderness and no pedal edema Neuro: SENSORIUM/ORIENTATION: Yes oriented to person, Yes oriented to place and Yes oriented to time Skin: COMMON NORMALS: no rashes or lesions noted GENERAL SKIN EXAM: no rashes or lesions noted Course Vital Signs: Vital signs: Vital Signs Temperature 97.9 F 11/12/20 15:37 Pulse Rate 68 11/12/20 15:37 Respiratory Rate 18 11/12/20 15:37 Blood Pressure 159/98 11/12/20 15:37 Pulse Oximetry 95 11/12/20 15:37 MDM - Abdominal Pain MDM Narrative: Medical decision making narrative: Discharge home with leg bag treat for cystitis. No evidence of bowel obstruction follow-up with primary care return if has further problems Lab Data: Labs: Lab Results 11/12/20 11/12/20 11/12/20 Range/Units 12:59 13:10 13:10 WBC 6.9 (4.0-10.0) 10^3/ uL RBC 4.70 (4.1-5.3) 10^6/u L Hgb 12.7 (11.7-16.6) g/dL Hct 41.0 L (42.0-52.0) % MCV 87.2 (80-94) fl MCH 27.0 L (28.0-34.0) pg MCHC 31.0 (30.0-36.0) g/dL RDW 15.7 H (12.1-15.1) % Plt Count 199 (130-400) 10^3/c mm MPV 10.1 (7.4-10.4) fL Neut % (Auto) 54.7 % Lymph % (Auto) 30.7 % [place] % (Auto) 10.4 % Eos % (Auto) 3.6 % Baso % (Auto) 0.3 % Neut # (Auto) 3.79 (1.8-7.7) 10^3/u L Lymph # (Auto) 2.1 (0.8-4.8) 10^3/u L [place] # (Auto) 0.7 (0.2-0.9) 10^3/u L Eos # (Auto) 0.3 (0.0-0.8) 10^3/u L Baso # (Auto) 0.0 (0.0-0.1) 10^3/u L Nucleated RBC % (a uto) 0 % Nucleated RBCs # 0.0 /100WBC Sodium 138 (136-145) mmol/L Potassium 4.5 (3.5-5.1) mmol/L Chloride 96 L (98-107) mmol/L Carbon Dioxide 29 (22-29) mmol/L Anion Gap 17.5 (5-19) BUN 13 (8-23) mg/dL Creatinine 1.1 (0.7-1.2) mg/dL GFR Calculation Not Reportable Glucose 99 (65-115) mg/dL Calculated Osmolal ity 286 (285-295) mOsm/k g Calcium 9.4 (8.5-10.5) mg/dL Total Bilirubin 0.4 (0.15-1.2) mg/dL AST 23 (0-40) U/L ALT 15 (0-41) U/L Alkaline Phosphata se 161 H (40-130) IU/L Total Protein 6.8 (6.6-8.7) g/dL Albumin 4.0 (3.5-5.2) g/dL Globulin 2.8 (1.3-4.6) g/dL Lipase 30 (13-60) U/L Urine Color Yellow (Yellow) Urine Appearance Hazy A (CLEAR) Urine pH 7 (5-7) Ur Specific Gravit y 1.005 (1.005-1.030) Urine Protein Neg (Negative) Urine Glucose (UA) Norm (Normal) Urine Ketones Negative (Negative) Urine Blood Neg (Negative) Urine Nitrate Negative (Negative) Urine Bilirubin Neg (Negative) Urine Urobilinogen Norm (Negative) mg/dL Ur Leukocyte Kathy ase 2+ H (Negative) Urine RBC 0-4 H (0-2) /hpf Urine WBC Too numerous to c nt H (0-5) /hpf Ur Squamous Epith Cells 0-4 H (0-5) /hpf Amorphous Sediment Not Reportable Urine Bacteria Trace (NONE) /hpf Discharge Plan Discharge Patient Disposition: Home Clinical Impression: Acute urinary retention, Cystitis Condition: Stable Prescriptions: New Cipro 500 mg tablet 500 mg PO BID Qty: 14 RF: 0 No Action atorvastatin 80 mg tablet 80 mg PO DAILY@1800 RF: 0 allopurinol 300 mg tablet 300 mg PO DAILY@0830 RF: 0 atenolol 50 mg tablet 50 mg PO DAILY@1800 RF: 0 aspirin 81 mg Tablet,Chewable 81 mg PO DAILY@1800 RF: 0 PreserVision AREDS-2 [id number] es-qilq-jl-mg Capsule 1 tab PO BID@829,1799 RF: 0 venlafaxine 75 mg tablet 75 mg PO BID@829,1799 RF: 0 hydroxyzine HCl 25 mg tablet 25 mg PO BID RF: 0 albuterol sulfate 90 mcg/actuation HFA aerosol inhaler 2 inh INHALATION Q4H PRN (Reason: shortness of breath or wheezing) Qty: 18 RF: 0 multivitamin Tablet 1 tab PO DAILY@18 RF: 0 furosemide 40 mg tablet 20 mg PO BID@08,12 RF: 0 ipratropium-albuterol 0.5 mg-3 mg(2.5 mg base)/3 mL solution for nebulization 3 ml INHALATION QID RF: 0 albuterol sulfate 2.5 mg /3 mL (0.083 %) solution for nebulization 2.5 mg inhalation Q6H PRN (Reason: Shortness Of Breath) RF: 0 hydrocodone-acetaminophen 5-325 mg tablet 1 tab PO BID PRN (Reason: Pain) RF: 0 Tylenol Arthritis Pain 650 mg Tablet Extended Release 1,300 mg PO DAILY@10 RF: 0 famotidine 20 mg tablet 20 mg PO BID RF: 0 Ativan 0.5 mg tablet 0.5 mg PO BEDTIME PRN (Reason: Anxiety) RF: 0 isosorbide mononitrate 10 mg tablet 10 mg PO BID RF: 0 Miralax 17 gram/dose powder 17 g PO DAILY PRN (Reason: Constipation) RF: 0 Flonase Allergy Relief 50 mcg/actuation spray,suspension 1 spray INTRANASAL BID PRN (Reason: Allergy Symptoms) RF: 0 neomycin-polymyxin B-dexameth 3.5 mg/g-10,000 unit/g-0.1 % ointment See Rx Instructions .ROUTE .COMPLEX RF: 0 Vitamin D3 25 mcg (1,000 unit) capsule 1,000 unit PO BEDTIME RF: 0 potassium chloride 10 mEq tablet,ER particles/crystals 10 meq PO DAILY RF: 0 magnesium oxide 400 mg magnesium Tablet 400 mg PO TID RF: 0 amlodipine 5 mg tablet 5 mg PO DAILY PRN (Reason: Blood Pressure) RF: 0 calcium 1 tab PO DAILY@1800 RF: 0 Eliquis 5 mg tablet 5 mg PO BID@0830,1800 RF: 0 Discharge Orders: Discharge ED (Routine); Ordered 11/12/20 Ordered By: Michael Gamboa Referrals: Nyasia Parr NP [Primary Care Provider] - Discharge Diet: Usual diet Discharge Activity: Resume usual activity Patient Instructions: Opioid Safety Activity Restrictions/Additional Instructions: Follow-up with Dr. Houser within the week Coding Level of Care Code ED Pharmacy Technologist for Chg Fwd Exam Comprehensive
[2020-11-12 14:33] VITALS: BP 153/86; PULSE 72; RESP 18; TEMP 36.5; O2SAT 95
[2020-11-12 15:37] VITALS: BP 159/98; PULSE 68; RESP 18; TEMP 36.6; O2SAT 95
--- NOTE | 2020-11-18 10:04 | DCPLANNER ---
hatchery manager had message to schedule a follow up appointment for patient with Dr. Houser. hatchery manager spoke with Kristen in Dr. Anne office about patient. Patients information will be printed and reviewed. Clinic will antonella patient with appointment information.
--- NOTE | 2020-11-19 16:04 | DCPLANNER ---
Patient has a follow up appointment scheduled for , November 25, 2020 at 10:[address] Houser. Clinic will call patient with appointment information.
--- NOTE | 2020-12-03 08:53 | DCPLANNER ---
Patient had a follow up appointment scheduled for 11.25.[address] Houser - patient did attend appointment.
== END 2020-11-12 15:44 | disposition home or self-care (01) ==
PROVIDERS: Emergency Provider Family Medicine; PCP Nurse Practitioner Family
DX: N30.90 Cystitis, unspecified without hematuria (principal); Z79.82 Long term (current) use of aspirin; Z79.01 Long term (current) use of anticoagulants; J44.9 Chronic obstructive pulmonary disease, unspecified; E78.5 Hyperlipidemia, unspecified; I10 Essential (primary) hypertension; Z85.46 Personal history of malignant neoplasm of prostate; Z86.711 Personal history of pulmonary embolism; Z87.891 Personal history of nicotine dependence
CPT/HCPCS: 51702; 74177; 80053; 81001; 83690; 85025; 87086; 93005; 99284; Q9967

== ENCOUNTER → 2021-01-18 14:48 | Outpatient (BNVA) | payer MEDICARE, SELFPAY | PROVIDERS: PCP Nurse Practitioner Family; Visit Provider Urology | DX: N13.30 Unspecified hydronephrosis (principal) | CPT/HCPCS: 81003 ==